=== PATIENT | male | born 1965 | race American Indian/Alaskan Native ===

== ENCOUNTER 2016-06-06 07:52 | Day surgery (SDC) | payer OTHER ==
[2016-03-17 14:37] VITALS: BMI 21.1
[2016-06-06] MEDS ORDERED: Lactated Ringer's 500 ML IV ONE (09:20)
[2016-06-06] MEDS ORDERED: Propofol 10 mg/ml Inj (20 ML) ONE (09:59)
[2016-06-06 10:23] VITALS: TEMP 97
[2016-06-06 10:39] VITALS: BP 114/74; PULSE 80; RESP 18; O2SAT 100
== END 2016-06-06 10:56 | disposition home or self-care (01) ==
LOC: H.ENDO 07:52
PROVIDERS: ATTEND Internal Medicine Gastroenterology
DX: K29.70 Gastritis, unspecified, without bleeding (principal); Z88.0 Allergy status to penicillin

== ENCOUNTER 2017-03-05 08:23 | Emergency (ER) | payer OTHER ==
[2017-03-05 08:23] VITALS: BMI 21.1
[2017-03-05] MEDS ORDERED: Sodium Chloride 0.9% 1,000 ML IV STA ×2 (08:48→10:09)
[2017-03-05] MEDS ORDERED: Insulin Regular 100 units/ml IVP ONE (09:00)
[2017-03-05 09:01] LABS: BASO # 0.1 K/uL (0.0-0.2); BASO % 0.4 % (0.0-2.0); EOS # 0.2 K/uL (0.0-0.7); EOS % 1.5 % (0.0-4.0); HEMATOCRIT 41.1 % (35.0-51.0); LYMPH # 1.2 K/uL (1.0-4.3); LYMPH % 8.4 % (20.0-40.0); MEAN CELL VOLUME 88.9 fl (80.0-94.0); MEAN CORPUSCULAR HGB CONC 32.7 g/dL (33.0-37.0); MEAN PLATELET VOLUME 7.5 fl (7.2-11.7); MONO # 0.5 K/uL (0.0-0.8); MONO % 3.5 % (0.0-10.0); NEUT # 12.2 K/uL (1.8-7.0); NEUT % 86.2 % (50.0-75.0); NRBC % 0.1 % (0.0-0.0); PLATELET COUNT 218 K/uL (130-400); RED CELL DISTRIBUTION WIDTH 12.6 % (11.5-14.5); WHITE BLOOD COUNT 14.1 K/uL (4.8-10.8)
[2017-03-05 09:21] LABS: ALB/GLOB RATIO 1.4 (1.0-2.1); ALKALINE PHOSPHATASE 94 U/L (38-126); ALT/SGPT 29 U/L (21-72); AST/SGOT 17 U/L (17-59); BILIRUBIN,TOTAL 0.4 mg/dl (0.2-1.3); BLOOD UREA NITROGEN 13 mg/dl (9-20); CALCIUM 9.5 mg/dL (8.4-10.2); CARBON DIOXIDE 22 mmol/L (22-30); CHLORIDE 103 mmol/L (98-107); GFR AFRICAN-AMERICAN > 60; GLUCOSE,RANDOM 306 mg/dL (75-110); LIPASE 448 U/L (23-300); POTASSIUM 4.1 MMOL/L (3.6-5.0); SODIUM 136 mmol/l (132-148)
--- NOTE | 2017-03-05 09:32 | ED PDOC ---
HPI: Abdomen Time Seen by Provider: 03/05/17 08:31 Chief Complaint (Nursing): Abdominal Pain Chief Complaint (Provider): Abdominal Pain History Per: Patient History/Exam Limitations: no limitations Onset/Duration Of Symptoms: Hrs Outside of [place] travel?: No Current Symptoms Are (Timing): Still Present Associated Symptoms: Nausea, Vomiting Additional Complaint(s): Alexis Lyon, a 51 year old male, with a past medical history of hypertension, gastroparesis and insulin dependent diabetes presents to the ED complaining of nausea and vomiting (non bloody, non bilious) this morning. Denies significant abdominal pain, fever and diarrhea. Patient reports that his last he hasn't taken his insulin in about a week. PMD: NO FAMILY PROVIDER Past Medical History Reviewed: Historical Data, Nursing Documentation, Vital Signs Vital Signs: Last Vital Signs Temp 98 F 03/05/17 13:02 Pulse 98 H 03/05/17 13:02 Resp 18 03/05/17 13:02 BP 155/98 H 03/05/17 13:02 Pulse Ox 100 03/05/17 13:02 - Medical History PMH: Arthritis, Asthma, Diabetes (IDDM), Gastritis (H Pylori), HTN, Hypercholesterolemia Denies: Atrial Fibrillation, CHF, HIV, Peripheral Edema, Chronic Kidney Disease - Surgical History Surgical History: No Surg Hx, Endoscopy - Family History Family History: States: Unknown Family Hx, Diabetes, Hypertension - Home Medications Home Medications: Ambulatory Orders Medication Instructions Recorded Ciprofloxacin [Cipro] 500 mg PO BID 7 Days #14 tab 03/05/17 Ondansetron [Zofran] 4 mg PO Q6H PRN #10 tab 03/05/17 - Allergies Allergies/Adverse Reactions: Allergies Allergy/AdvReac Type Severity Reaction Status Date / Time Penicillins Allergy RASH Verified 03/05/17 08:33 strawberry Allergy RASH Verified 03/05/17 08:33 Review of Systems ROS Statement: Except As Marked, All Systems Reviewed And Found Negative Constitutional: Negative for: Fever Gastrointestinal: Positive for: Nausea, Vomiting. Negative for: Abdominal Pain Physical Exam - Reviewed Nursing Documentation Reviewed: Yes Vital Signs Reviewed: Yes - Physical Exam Appears: Positive for: Non-toxic, No Acute Distress Head Exam: Positive for: ATRAUMATIC, NORMAL INSPECTION, NORMOCEPHALIC Skin: Positive for: Normal Color, Warm, Dry. Negative for: Rash Eye Exam: Positive for: Normal appearance, EOMI, PERRL. Negative for: Nystagmus ENT: Positive for: Normal ENT Inspection Neck: Positive for: Normal, Painless ROM, Supple Cardiovascular/Chest: Positive for: Regular Rate, Rhythm, Chest Non Tender. Negative for: Tachycardia Respiratory: Positive for: Normal Breath Sounds. Negative for: Wheezing, Respiratory Distress Gastrointestinal/Abdominal: Positive for: Normal Exam, Bowel Sounds, Soft. Negative for: Tenderness, Mass, Guarding, Rebound Back: Positive for: Normal Inspection. Negative for: L CVA Tenderness, R CVA Tenderness Extremity: Positive for: Normal ROM Neurologic/Psych: Positive for: Alert, Oriented - Laboratory Results Result Diagrams: 03/05/17 08:58 03/05/17 08:58 - ECG O2 Sat by Pulse Oximetry: 98 (RA) Pulse Ox Interpretation: Normal Medical Decision Making Medical Decision Makin Initial Impression 51 y/o male presenting with nausea and vomiting Initial Plan: * EKG * CMP * Lipase * CBC * HumuLIN R 6 units IVP * NS 1000 ml IV 1000 mls/hr * Pepcid 20g IV * Zofran 4 mg * IV Urinalysis * Reevaluation labs reviewed, +mod hyperglycemia and leukocytosis Improved in ED, tolerated full meal. Wanted to go home. FP resident Dr Cornejo in ED to provide insulin Rx, states he doesnt have any more Followup clinic note- UA returned after pt left ED, did not want to wait. UTI present, cipro called to [facility] lilia, contacted patient he will pickup in am Scribe Attestation Documented by Trish Patten acting as a scribe for Russ Haskins DO. Provider Attestation All medical record entries made by the Scribe were at my direction and personally dictated by me. I have reviewed the chart and agree that the record accurately reflects my personal performance of the history, physical exam, medical decision making, and the department course for this patient. I have also personally directed, reviewed, and agree with the discharge instructions and disposition. Disposition - Clinical Impression Clinical Impression: Vomiting, Hyperglycemia, UTI (urinary tract infection) - Patient ED Disposition Is Patient to be Admitted: No Counseled Patient/Family Regarding: Studies Performed, Rx Given - Disposition Referrals: [facility] [Outside] Disposition: Routine/Home Disposition Time: 13:00 Condition: STABLE Additional Instructions: Return to ER for any worse or new symptoms. Take insulin as directed. Prescriptions: Ondansetron [Zofran] 4 mg PO Q6H PRN #10 tab PRN Reason: Nausea/Vomiting Instructions: Dehydration (ED), Acute Nausea and Vomiting (ED) Forms: [employer] (Sao Tomean)
[2017-03-05 10:57] LABS: NEUTROPHIL 88 % (42-75); TOTAL CELLS COUNTED 100
[2017-03-05 11:02] LABS: RBC URINE 18 /hpf (0-3); URINE BACTERIA RARE (<OCC); URINE BILIRUBIN NEGATIVE (NEGATIVE); URINE BLOOD SMALL (NEGATIVE); URINE COLOR YELLOW (YELLOW); URINE GLUCOSE (UA) >=500 mg/dL (Normal); URINE KETONE NEGATIVE (NEGATIVE); URINE LEUKOCYTE ESTERASE LARGE Leu/uL (Negative); URINE PROTEIN 30 mg/dL (NEGATIVE); URINE UROBILINOGEN 0.2-1.0 mg/dL (0.2-1.0); WBC URINE 545 /hpf (0-5)
[2017-03-05 13:03] VITALS: BP 155/98; PULSE 98; RESP 18; TEMP 98
[2017-03-05 15:20] VITALS: O2SAT 98
--- NOTE | 2017-03-06 15:58 | CARD ---
APPROVED REPORT EKG Measurement Heart [id number] <Conclusion> Normal sinus rhythm Normal ECG
== END 2017-03-05 13:13 | disposition home or self-care (01) ==
LOC: H.ER 08:23
DX: E11.65 Type 2 diabetes mellitus with hyperglycemia (principal); N39.0 Urinary tract infection, site not specified; R11.10 Vomiting, unspecified; E78.00 Pure hypercholesterolemia, unspecified; I10 Essential (primary) hypertension; J45.909 Unspecified asthma, uncomplicated; Z79.4 Long term (current) use of insulin; Z88.0 Allergy status to penicillin
CPT/HCPCS: 80053; 81003; 82948; 83690; 85025; 93005; 96361; 96374; 96375; 99283; J2405; J7040

== ENCOUNTER 2017-03-26 08:09 | Emergency (ER) | payer OTHER ==
[2017-03-26 08:10] VITALS: BMI 21.1
[2017-03-26 08:25] VITALS: TEMP 97.6
[2017-03-26] MEDS ORDERED: Sodium Chloride 0.9% 1,000 ML IV STA (09:59)
--- NOTE | 2017-03-26 10:07 | ED PDOC ---
HPI: Abdomen Time Seen by Provider: 03/26/17 09:05 Chief Complaint (Nursing): GI Problem Chief Complaint (Provider): Vomiting History Per: Patient History/Exam Limitations: no limitations Onset/Duration Of Symptoms: Days (x1) Current Symptoms Are (Timing): Still Present Additional Complaint(s): 51 y/o male with a past medical history of diabetes presents to the emergency department complaining of recurrent vomiting since this morning. Denies any abdominal pain, diarrhea, or fever/chills. Patient had 1 episode of vomiting here. Denies alcohol or drug use. PMD: Provider TBD Past Medical History Reviewed: Historical Data, Nursing Documentation, Vital Signs Vital Signs: Last Vital Signs Temp 97.6 F 03/26/17 15:01 Pulse 89 03/26/17 15:01 Resp 20 03/26/17 15:01 BP 155/84 H 03/26/17 15:01 Pulse Ox 98 03/26/17 16:04 - Medical History PMH: Arthritis, Asthma, Diabetes (IDDM), Gastritis (H Pylori), HTN, Hypercholesterolemia Denies: Atrial Fibrillation, CHF, HIV, Peripheral Edema, Chronic Kidney Disease - Surgical History Surgical History: Endoscopy - Family History Family History: States: Unknown Family Hx, Diabetes, Hypertension - Social History Alcohol: None Drugs: Denies - Home Medications Home Medications: Ambulatory Orders Medication Instructions Recorded Ciprofloxacin [Cipro] 500 mg PO BID 7 Days #14 tab 03/05/17 Ondansetron [Zofran] 4 mg PO Q6H PRN #10 tab 03/05/17 Ciprofloxacin HCl [Cipro] 500 mg PO BID #20 tab 03/26/17 Metronidazole [Flagyl] 500 mg PO TID #30 tablet 03/26/17 Ondansetron [Zofran] 4 mg PO Q6H PRN #5 tab 03/26/17 - Allergies Allergies/Adverse Reactions: Allergies Allergy/AdvReac Type Severity Reaction Status Date / Time Penicillins Allergy RASH Verified 03/05/17 08:33 strawberry Allergy RASH Verified 03/05/17 08:33 Review of Systems ROS Statement: Except As Marked, All Systems Reviewed And Found Negative Constitutional: Negative for: Fever, Chills Gastrointestinal: Positive for: Nausea, Vomiting. Negative for: Abdominal Pain , Diarrhea Physical Exam - Reviewed Nursing Documentation Reviewed: Yes Vital Signs Reviewed: Yes - Physical Exam Appears: Positive for: Well (thin elderly male), Non-toxic, No Acute Distress Head Exam: Positive for: ATRAUMATIC, NORMAL INSPECTION, NORMOCEPHALIC Skin: Positive for: Normal Color, Warm, Dry Eye Exam: Positive for: EOMI, Normal appearance, PERRL Neck: Positive for: Normal, Painless ROM, Supple Cardiovascular/Chest: Positive for: Regular Rate, Rhythm. Negative for: Murmur Respiratory: Positive for: Normal Breath Sounds. Negative for: Accessory Muscle Use, Respiratory Distress Gastrointestinal/Abdominal: Positive for: Normal Exam, Bowel Sounds, Soft. Negative for: Tenderness Back: Positive for: Normal Inspection. Negative for: L CVA Tenderness, R CVA Tenderness Extremity: Positive for: Normal ROM. Negative for: Pedal Edema, Deformity Neurologic/Psych: Positive for: Alert, Oriented - Laboratory Results Result Diagrams: 03/26/17 10:12 03/26/17 10:12 - ECG O2 Sat by Pulse Oximetry: 98 (RA) Pulse Ox Interpretation: Normal Medical Decision Making Medical Decision Making: Time: 09:59 Initial Plan: --CMP --Lipase --CBC w/ differential --NS IV 1000 ml at 999 mls/hr --Pepcid 20 mg IVP --Zofran 4 mg IV --Reevaluation Time: 11:10 Labs reviewed, significant for: Elevated blood sugar but no anion gap. Lipase elevated. Will order CT scan with PO & IV contrast to r/o pancreatitis. Time: 15:29 CT ABDOMEN/PELVIS FINDINGS: LOWER THORAX: Unremarkable. LIVER: Mild hepatic steatosis again appreciated and is otherwise unremarkable. GALLBLADDER AND BILE DUCTS: Unremarkable. PANCREAS: No focal pancreatic mass or abnormal enhances appreciated although pancreatic duct remains upper limits normal caliber. SPLEEN: Unremarkable. ADRENALS: Unremarkable. No mass. KIDNEYS AND URETERS: The tightly lucency seen the posterior cortex of the upper pole left kidney with both kidneys otherwise unremarkable. VASCULATURE: Unremarkable. No aortic aneurysm. BOWEL: The large and small bowel are largely collapsed as well as the stomach however mural thickening appears affecting both in a pattern suspicious for enterocolitis. No abscess free air or prominent ascites. Gastritis was questioned in the prior CT examination a due to collapse and lack of oral contrast distention of the stomach, as it but difficult to exclude that from the stomach at this time. APPENDIX: Normal appendix. PERITONEUM: Unremarkable. No free fluid. No free air. LYMPH NODES: Unremarkable. No enlarged lymph nodes. BLADDER: Unremarkable. REPRODUCTIVE: Unremarkable. BONES: No acute fracture. OTHER FINDINGS: None. Findings suspicious for enterocolitis IMPRESSION: Findings most compatible with likely enterocolitis with indeterminate etiology. Clinically correlate further. Gastritis not completely excluded. No ascites or free intrarenal gas identified this time. Limited hepatic steatosis again evident. Time: 15:47 Patient is medically stable. pt is aware of CT results and is tolerating po in the ED. Will d/c with Cipro and Flagyl and outpatient follow up with GI. Scribe Attestation: Documented by Amy Antony, acting as a scribe for Gilbert Duke MD Provider Scribe Attestation: All medical record entries made by the Scribe were at my direction and personally dictated by me. I have reviewed the chart and agree that the record accurately reflects my personal performance of the history, physical exam, medical decision making, and the department course for this patient. I have also personally directed, reviewed, and agree with the discharge instructions and disposition. Disposition - Clinical Impression Clinical Impression: Enterocolitis - Patient ED Disposition Is Patient to be Admitted: No Counseled Patient/Family Regarding: Studies Performed, Diagnosis, Need For Followup, Rx Given - Disposition Referrals: [facility] [Outside] [facility] [Outside] Disposition: Routine/Home Disposition Time: 16:45 Condition: IMPROVED Additional Instructions: follow up with your primary doctor in 1-2 days return to the ED with any worsening or concerning symptoms. Prescriptions: Ciprofloxacin HCl [Cipro] 500 mg PO BID #20 tab Metronidazole [Flagyl] 500 mg PO TID #30 tablet Ondansetron [Zofran] 4 mg PO Q6H PRN #5 tab PRN Reason: Nausea/Vomiting Instructions: Colitis (ED) Forms: [employer] (Chinese)
[2017-03-26 10:24] LABS: BASO % 0.3 % (0.0-2.0); EOS # 0.3 K/uL (0.0-0.7); EOS % 2.5 % (0.0-4.0); HEMOGLOBIN 14.1 g/dL (12.0-18.0); LYMPH # 1.8 K/uL (1.0-4.3); MEAN CELL VOLUME 87.8 fl (80.0-94.0); MEAN CORPUSCULAR HEMOGLOBIN 29.4 pg (27.0-31.0); MEAN CORPUSCULAR HGB CONC 33.5 g/dL (33.0-37.0); MEAN PLATELET VOLUME 8.6 fl (7.2-11.7); MONO # 0.5 K/uL (0.0-0.8); MONO % 4.4 % (0.0-10.0); NEUT # 9.6 K/uL (1.8-7.0); NEUT % 77.8 % (50.0-75.0); NRBC % 0.1 % (0.0-0.0); RBC 4.81 Mil/uL (4.40-5.90); RED CELL DISTRIBUTION WIDTH 12.6 % (11.5-14.5); WHITE BLOOD COUNT 12.3 K/uL (4.8-10.8)
[2017-03-26 10:49] LABS: ALB/GLOB RATIO 1.5 (1.0-2.1); ALBUMIN 4.6 g/dL (3.5-5.0); ALT/SGPT 30 U/L (21-72); AST/SGOT 22 U/L (17-59); BLOOD UREA NITROGEN 10 mg/dl (9-20); CALCIUM 9.5 mg/dL (8.4-10.2); GFR AFRICAN-AMERICAN > 60; GFR NON-AFRICAN AMERICAN > 60; LIPASE 464 U/L (23-300)
[2017-03-26] MEDS ORDERED: Iohexol 240 (50 ml) PO ONE (11:10)
[2017-03-26] MEDS ORDERED: Iohexol 300 100 ML IJ ONE (14:27)
[2017-03-26] MEDS ORDERED: Sodium Chloride 0.9% 50 ML IV ONE (14:28)
[2017-03-26 15:02] VITALS: BP 155/84; PULSE 89; RESP 20
--- NOTE | 2017-03-26 15:30 | CT ---
PROCEDURE: CT Abdomen and Pelvis with contrast HISTORY: abdominal pain COMPARISON: Abdomen and pelvis CT with contrast 03/19/2016. TECHNIQUE: Contrast dose: Omnipaque 300, 95 cc. Radiation dose: Total exam DLP = 456.52 mGy-cm. This CT exam was performed using one or more of the following dose reduction techniques: Automated exposure control, adjustment of the mA and/or kV according to patient size, and/or use of iterative reconstruction technique. FINDINGS: LOWER THORAX: Unremarkable. LIVER: Mild hepatic steatosis again appreciated and is otherwise unremarkable. GALLBLADDER AND BILE DUCTS: Unremarkable. PANCREAS: No focal pancreatic mass or abnormal enhances appreciated although pancreatic duct remains upper limits normal caliber. SPLEEN: Unremarkable. ADRENALS: Unremarkable. No mass. KIDNEYS AND URETERS: The tightly lucency seen the posterior cortex of the upper pole left kidney with both kidneys otherwise unremarkable. VASCULATURE: Unremarkable. No aortic aneurysm. BOWEL: The large and small bowel are largely collapsed as well as the stomach however mural thickening appears affecting both in a pattern suspicious for enterocolitis. No abscess free air or prominent ascites. Gastritis was questioned in the prior CT examination a due to collapse and lack of oral contrast distention of the stomach, as it but difficult to exclude that from the stomach at this time. APPENDIX: Normal appendix. PERITONEUM: Unremarkable. No free fluid. No free air. LYMPH NODES: Unremarkable. No enlarged lymph nodes. BLADDER: Unremarkable. REPRODUCTIVE: Unremarkable. BONES: No acute fracture. OTHER FINDINGS: None. Findings suspicious for enterocolitis IMPRESSION: Findings most compatible with likely enterocolitis with indeterminate etiology. Clinically correlate further. Gastritis not completely excluded. No ascites or free intrarenal gas identified this time. Limited hepatic steatosis again evident.
[2017-03-26 16:04] VITALS: O2SAT 98
== END 2017-03-26 16:39 | disposition home or self-care (01) ==
LOC: H.ER 08:09
DX: K76.0 Fatty (change of) liver, not elsewhere classified (principal); E11.9 Type 2 diabetes mellitus without complications; Z88.0 Allergy status to penicillin; E78.00 Pure hypercholesterolemia, unspecified; I10 Essential (primary) hypertension; J45.909 Unspecified asthma, uncomplicated; Z79.4 Long term (current) use of insulin
CPT/HCPCS: 74177; 80053; 83690; 85025; 96374; 96375; 99283; J2405; J2550; J7040; Q9967

== ENCOUNTER 2017-05-27 17:42 | Inpatient (IN) | payer MEDICAID, OTHER ==
[2017-05-27 17:43] VITALS: BMI 21.1
[2017-05-27] MEDS ORDERED: Sodium Chloride 0.9% 1,000 ML IV STA ×2 (18:41→21:57)
--- NOTE | 2017-05-27 18:44 | ED PDOC ---
HPI: Abdomen Time Seen by Provider: 05/27/17 18:29 Chief Complaint (Nursing): GI Problem Chief Complaint (Provider): Vomiting History Per: Patient History/Exam Limitations: no limitations Onset/Duration Of Symptoms: Hrs (this morning. ) Current Symptoms Are (Timing): Still Present Associated Symptoms: Vomiting (non bloody), Diarrhea. denies: Fever, Chills, Chest Pain, Urinary Symptoms, Other (SOB) Additional Complaint(s): Alexis Lyon is a 51 year old male, with a past medical history of diabetes and gastritis, who presents to the emergency department complaining of non bloody vomiting and diarrhea onset since this morning. He denies any fever, chills, chest pain, shortness of breath, abdominal pain or genitourinary symptoms. No further medical complaints. PMD: None provided. Of note: Patient was seen here on 03/26/2017 and given Cipro and Flagyl for home. Past Medical History Reviewed: Historical Data, Nursing Documentation, Vital Signs Vital Signs: Last Vital Signs Temp 98.3 F 05/31/17 16:00 Pulse 83 05/31/17 16:00 Resp 20 05/31/17 16:00 BP 172/86 H 05/31/17 16:00 Pulse Ox 98 05/31/17 16:00 - Medical History PMH: Arthritis, Asthma, Diabetes (IDDM), Gastritis (H Pylori), HTN, Hypercholesterolemia Denies: Atrial Fibrillation, CHF, HIV, Peripheral Edema, Chronic Kidney Disease - Surgical History Surgical History: Endoscopy - Family History Family History: States: Unknown Family Hx, Diabetes, Hypertension - Home Medications Home Medications: Ambulatory Orders Medication Instructions Recorded Aspirin [Ecotrin] 81 mg PO DAILY tabec 05/31/17 Atorvastatin [Lipitor] 10 mg PO DAILY tab 05/31/17 Insulin Detemir [Levemir] 17 units SC HS vial 05/31/17 Lisinopril [Zestril] 40 mg PO DAILY tab 05/31/17 MetFORMIN [glucoPHAGE] 1,000 mg PO BIDWM tab 05/31/17 Metoclopramide [Reglan] 10 mg PO ACTID #21 tab 05/31/17 Ondansetron [Zofran Inj] 4 mg PO Q6 #28 tab 05/31/17 - Allergies Allergies/Adverse Reactions: Allergies Allergy/AdvReac Type Severity Reaction Status Date / Time Penicillins Allergy RASH Verified 03/05/17 08:33 strawberry Allergy RASH Verified 03/05/17 08:33 Review of Systems ROS Statement: Except As Marked, All Systems Reviewed And Found Negative Constitutional: Negative for: Fever, Chills Cardiovascular: Negative for: Chest Pain Respiratory: Negative for: Shortness of Breath Gastrointestinal: Positive for: Vomiting (non bloody), Diarrhea. Negative for: Abdominal Pain Genitourinary Male: Negative for: Dysuria, Frequency, Incontinence Physical Exam - Reviewed Nursing Documentation Reviewed: Yes Vital Signs Reviewed: Yes - Physical Exam Appears: Positive for: Non-toxic Head Exam: Positive for: ATRAUMATIC, NORMAL INSPECTION, NORMOCEPHALIC Skin: Positive for: Normal Color, Warm, Dry Eye Exam: Positive for: Normal appearance, EOMI, PERRL Neck: Positive for: Painless ROM, Supple Cardiovascular/Chest: Positive for: Regular Rate, Rhythm. Negative for: Murmur Respiratory: Positive for: Normal Breath Sounds. Negative for: Respiratory Distress Gastrointestinal/Abdominal: Positive for: Tenderness (mild epigastric and RUQ ) , Other (Actively vomiting). Negative for: Guarding, Rebound Extremity: Positive for: Normal ROM. Negative for: Tenderness, Deformity, Swelling Neurologic/Psych: Positive for: Alert, Oriented - Laboratory Results Result Diagrams: 05/29/17 05:30 05/31/17 06:40 - ECG O2 Sat by Pulse Oximetry: 98 (RA) Pulse Ox Interpretation: Normal Medical Decision Making Medical Decision Making: Initial Impression: Gastritis, cholecystitis, cholelithiasis. Initial Plan: --EKG --CMP --Lipase --Urine dipstick --CBC w/ differential --PTT --PT --Morphine 2 mg IV --Sodium Chloride 1,000 ml IV 1,000 mls/hr --Zofran Inj 4 mg IV --Urinalysis --Abdomen Limited (GB includd) [US] --Reevaluation Scribe Attestation: Documented by Rad Ford, acting as a scribe for Michelle Samuels MD Provider Scribe Attestation: All medical record entries made by the Scribe were at my direction and personally dictated by me. I have reviewed the chart and agree that the record accurately reflects my personal performance of the history, physical exam, medical decision making, and the department course for this patient. I have also personally directed, reviewed, and agree with the discharge instructions and disposition. Disposition - Clinical Impression Clinical Impression: Intractable vomiting - Disposition Disposition: Transfer of Care Disposition Time: 19:00 Condition: STABLE Patient Signed Over To: Claudy Conway
--- NOTE | 2017-05-27 19:07 | ED PDOC ---
- Laboratory Results Result Diagrams: 05/27/17 19:23 05/27/17 19:23 - ECG O2 Sat by Pulse Oximetry: 98 (RA) Medical Decision Making Medical Decision Makin:00 --Patient was endorsed to me by Dr. Samuels, pending ultrasound and labs. 20:17 Abdomen Ultrasound FINDINGS: Gallbladder: Appears mildly contracted. Demonstrates a fold, a normal variant. Otherwise unremarkable in appearance. No evidence of gallstones, abnormal gallbladder wall thickening or pericholecystic fluid. Reportedly negative sonographic Welsh's sign. Common bile duct: Does not appear abnormally dilated, measuring less than 6 mm in diameter. Liver: Within normal limits in appearance. Measures 12.5 cm in length. Normal flow seen in the main portal vein on color and Doppler imaging. Pancreas: Incompletely seen due to gas. Visualized portions of the pancreatic head and neck appear grossly normal. Right kidney: Within normal limits in appearance. Measures 11.4 cm in length. No evidence of hydronephrosis. No renal calculi are visible sonographically. IMPRESSION: No significant abnormality seen. No cause for right upper quadrant pain identified. 10PM Patient continues to have vomiting, but states that his pain is gone. Stool exam shows normal brown stool, guiac negative, however some blood tinged vomit at this time, likely 2/2 to norman-spears tear from excessive vomiting. Case discussed with FP resident who agrees to admission in OBS for intractable vomiting. Disposition - Clinical Impression Clinical Impression: Intractable vomiting - POA Present On Arrival: None - Disposition Disposition: Hospitalized as Observation Patient Disposition Time: 22:00 Condition: FAIR
[2017-05-27] MEDS ORDERED: Morphine 4 MG/ML VIAL ONE (19:31)
[2017-05-27 19:40] LABS: BASO % 0.2 % (0.0-2.0); HEMOGLOBIN 14.6 g/dL (12.0-18.0); LYMPH # 0.9 K/uL (1.0-4.3); LYMPH % 5.4 % (20.0-40.0); MEAN CORPUSCULAR HEMOGLOBIN 29.5 pg (27.0-31.0); MEAN CORPUSCULAR HGB CONC 33.5 g/dL (33.0-37.0); MEAN PLATELET VOLUME 7.5 fl (7.2-11.7); MONO # 0.3 K/uL (0.0-0.8); MONO % 2.1 % (0.0-10.0); NEUT # 14.7 K/uL (1.8-7.0); NEUT % 92.3 % (50.0-75.0); NRBC % 0.1 % (0.0-0.0); PLATELET COUNT 267 K/uL (130-400); RBC 4.95 Mil/uL (4.40-5.90); RED CELL DISTRIBUTION WIDTH 14.2 % (11.5-14.5); WHITE BLOOD COUNT 15.9 K/uL (4.8-10.8)
[2017-05-27 19:45] LABS: ALB/GLOB RATIO 1.4 (1.0-2.1); ALBUMIN 4.9 g/dL (3.5-5.0); ALT/SGPT 41 U/L (21-72); AST/SGOT 30 U/L (17-59); BLOOD UREA NITROGEN 12 mg/dl (9-20); CALCIUM 10.4 mg/dL (8.4-10.2); GFR AFRICAN-AMERICAN > 60; GFR NON-AFRICAN AMERICAN > 60; LIPASE 63 U/L (23-300)
[2017-05-27 19:51] LABS: PARTIAL THROMBOPLASTIN TIME 28.6 Seconds (25.6-37.1); PROTHROMBIN TIME 10.6 Seconds (9.8-13.1)
--- NOTE | 2017-05-27 20:17 | US ---
EXAM: US Abdomen Limited, Right Upper Quadrant EXAM DATE/TIME: 05/27/2017 6:41 PM CLINICAL HISTORY: 51 years old, male; Pain; Abdominal pain; Epigastric; Additional info: Epigastric/ruq pain, vomiting TECHNIQUE: Real-time ultrasound of the right upper quadrant with image documentation. COMPARISON: Prior abdominal ultrasound dated 09/08/2015. FINDINGS: Gallbladder: Appears mildly contracted. Demonstrates a fold, a normal variant. Otherwise unremarkable in appearance. No evidence of gallstones, abnormal gallbladder wall thickening or pericholecystic fluid. Reportedly negative sonographic Welsh's sign. Common bile duct: Does not appear abnormally dilated, measuring less than 6 mm in diameter. Liver: Within normal limits in appearance. Measures 12.5 cm in length. Normal flow seen in the main portal vein on color and Doppler imaging. Pancreas: Incompletely seen due to gas. Visualized portions of the pancreatic head and neck appear grossly normal. Right kidney: Within normal limits in appearance. Measures 11.4 cm in length. No evidence of hydronephrosis. No renal calculi are visible sonographically. IMPRESSION: No significant abnormality seen. No cause for right upper quadrant pain identified. See above for remaining findings.
[2017-05-27 21:05] LABS: BANDS 5 % (0-2); LYMPHOCYTE 5 % (20-50); MONOCYTE 3 % (0-10); NEUTROPHIL 87 % (42-75); PLATELET ESTIMATE NORMAL (NORMAL); TOTAL CELLS COUNTED 100
[2017-05-27 21:06] LABS: HYPOCHROMIC SLIGHT
[2017-05-27] MEDS ORDERED: Glucagon Recombinant 1 mg Inj IM PRN (23:07)
[2017-05-27] MEDS ORDERED: Dextrose 50% SYRINGE Inj (50 ml) IV PRN (23:07)
--- NOTE | 2017-05-27 23:09 | CP.PCM.HP ---
History of Present Illness - History of Present Illness History of Present Illness: "andrea been throwing up all morning" 51 y/o male, with PMHx remarkable for IDDM2, HTN, and gastroparesis presented to [facility] ED today for evaluation of vomiting today. Pt reports it started this morning. He denies any sick contacts or dietary irregularities. He has had >10 episodes of NBNB emesis today. He reports he has tried to hold down fluids but has failed. He has now been dry heaving severely with some scant red coloring to his stomach contents. He reports being admitted last year in March for similar symptoms. Denies fever/chills, headaches, changes in vision, CP/SOB/ palpitations, abdominal pain, D/C, urinary symptoms, new onset numbness/ tingling. PMD: Marsha, last visit 04/21/2017 PMHx: IDDM2, HTN, Gastroparesis, peripheral neuropathy Meds: Aspirin 81mg QD, Humalog 4 units SC ACTID, Lantus 14 units SC HS, atorvastatin 10mg QD, Vascepa 1gm QD, Lisinopril 40mg QD, Metformin 1000mg BID, Gabapentin 600mg QD ALL: pencillin (swelling) Psurghx: none FamilyHx: HTN, seizures SocialHx: denies ETOH/Tobacco/drug abuse Next of Kin: Fannie Cevallos [phone] Code Status: full code Present on Admission - Present on Admission Any Indicators Present on Admission: No Review of Systems - Constitutional Constitutional: absent: As Per HPI, Anorexia, Chills, Daytime Sleepiness, Excessive Sweating, Fatigue, Fever, Frequent Falls, Headache, Increased Appetite , Lethargy, Malaise, Night Sweats, Snoring, Sleep Apnea, Weight Gain, Weight Loss, Weakness, Other - EENT Eyes: absent: As Per HPI, Blind Spots, Blurred Vision, Change in Vision, Decreased Night Vision, Diplopia, Discharge, Dry Eye, Exophthalmos, Floaters, Irritation, Itchy Eyes, Loss of Peripheral Vision, Pain, Photophobia, Requires Corrective Lenses, Sees Flashes, Spots in Vision, Tunnel Vision, Other Visual Disturbances, Loss of Vision, Other Ears: absent: As Per HPI, Decreased Hearing, Ear Discharge, Ear Pain, Tinnitus, Abnormal Hearing, Disequilibrium, Dizziness, Other - Cardiovascular Cardiovascular: absent: As Per HPI, Acrocyanosis, Chest Pain, Chest Pain at Rest , Chest Pain with Activity, Claudication, Diaphoresis, Dyspnea, Dyspnea on Exertion, Edema, Irregular Heart Rhythm, Pain Radiating to Arm/Neck/Jaw, Leg Edema, Leg Ulcers, Lightheadedness, Orthopnea, Palpitations, Paroxysmal Nocturnal Dyspnea, Pedal Edema, Radiating Pain, Rapid Heart Rate, Slow Heart Rate, Syncope, Other - Respiratory Respiratory: absent: As Per HPI, Cough, Dyspnea, Hemoptysis, Dyspnea on Exertion , Wheezing, Snoring, Stridor, Pain on Inspiration, Chest Congestion, Excessive Mucous Production, Change in Mucous Color, Pain with Coughing, Other - Gastrointestinal Gastrointestinal: Bloating, Nausea, Vomiting. absent: As Per HPI, Abdominal Pain, Belching, Change in Bowel Habits, Change in Stool Character, Coffee Ground Emesis, Constipation, Cramping, Diarrhea, Dyspepsia, Dysphagia, Early Satiety, Excessive Flatus, Fecal Incontinence, Heartburn, Hematemesis, Hematochezia, Loose Stools, Melena, Odynophagia, Temesmus, Other - Genitourinary Genitourinary: absent: As Per HPI, Change in Urinary Stream, Difficulty Urinating, Dysuria, Flank Pain, Hematuria, Pyuria, Nocturia, Urinary Incontinence, Urinary Frequency, Urinary Hesitance, Urinary Urgency, Voiding Freq/Small Amts, Freq UTI, Hx Renal/Bladder Calculi, Hx /Renal Surgery, Bladder Distension, Other - Musculoskeletal Musculoskeletal: absent: As Per HPI, Abnormal Gait, Arthralgias, Atrophy, Back Pain, Deformity, Joint Swelling, Limited Range of Motion, Loss of Height, Muscle Cramps, Muscle Weakness, Myalgias, Neck Pain, Numbness, Radiating Pain into Limb, Stiffness, Tingling, Other - Integumentary Integumentary: absent: As Per HPI, Acne, Alopecia, Bleeding Lesions, Change in Hair, Change in Nails, Change in Pigmentation, Changing Lesions, Dry Skin, Erythema, Furuncle, Hirsutism, Lesions, New Lesions, Non-Healing Lesions, Photosensitivity, Pruritus, Rash, Skin Pain, Skin Ulcer, Sores, Striae, Swelling , Unusual Bruising, Wounds, Jaundice, Other - Neurological Neurological: absent: As Per HPI, Abnormal Gait, Abnormal Hearing, Abnormal Movements, Abnormal Speech, Behavioral Changes, Burning Sensations, Confusion, Convulsions, Disequilibrium, Dizziness, Numbness, Focal Weakness, Frequent Falls , Headaches, Lack of Coordination, Loss of Vision, Memory Loss, Paresthesias, Radicular Pain, Restless Legs, Sensory Deficit, Syncope, Tingling, Tremor, Vertigo, Weakness, Other Visual Disturbances, Other Past Patient History - Infectious Disease Hx of Infectious Diseases: None - Past Medical History & Family History Past Medical History?: Yes - Past Social History Smoking Status: Never Smoked Alcohol: None Drugs: Denies Home Situation {Lives}: With Family - CARDIAC Hx Atrial Fibrillation: No Hx Congestive Heart Failure: No Hx Hypercholesterolemia: Yes Hx Hypertension: Yes Hx Peripheral Edema: No - PULMONARY Hx Asthma: Yes - NEUROLOGICAL Hx Neurological Disorder: No - HEENT Hx HEENT Problems: No - RENAL Hx Chronic Kidney Disease: No - ENDOCRINE/METABOLIC Hx Endocrine Disorders: Yes Hx Diabetes Mellitus Type 2: Yes - HEMATOLOGICAL/ONCOLOGICAL Hx Human Immunodeficiency Virus (HIV): No - INTEGUMENTARY Hx Dermatological Problems: No - MUSCULOSKELETAL/RHEUMATOLOGICAL Hx Arthritis: Yes - GASTROINTESTINAL Hx Gastritis: Yes (H Pylori) - GENITOURINARY/GYNECOLOGICAL Hx Genitourinary Disorders: No - PSYCHIATRIC Hx Psychophysiologic Disorder: No Hx Emotional Abuse: No Hx Physical Abuse: No Hx Substance Use: No - SURGICAL HISTORY Hx Surgeries: No - ANESTHESIA Hx Anesthesia: No Meds Allergies/Adverse Reactions: Allergies Allergy/AdvReac Type Severity Reaction Status Date / Time Penicillins Allergy RASH Verified 03/05/17 08:33 strawberry Allergy RASH Verified 03/05/17 08:33 Physical Exam - Constitutional Appears: Non-toxic, No Acute Distress - Head Exam Head Exam: ATRAUMATIC, NORMAL INSPECTION, NORMOCEPHALIC - Eye Exam Eye Exam: EOMI, Normal appearance, PERRL Pupil Exam: PERRL - ENT Exam ENT Exam: Mucous Membranes Dry, Normal Exam. absent: Mucous Membranes Moist - Neck Exam Neck exam: Positive for: Full Rom. Negative for: Lymphadenopathy, Tenderness - Respiratory Exam Respiratory Exam: Clear to Auscultation Bilateral, NORMAL BREATHING PATTERN. absent: Accessory Muscle Use, Rales, Rhonchi, Wheezes, Respiratory Distress - Cardiovascular Exam Cardiovascular Exam: REGULAR RHYTHM, RRR, +S1, +S2. absent: Tachycardia, Gallop , JVD, Rubs, Systolic Murmur - GI/Abdominal Exam GI & Abdominal Exam: Guarding (voluntary), Normal Bowel Sounds, Soft. absent: Distended, Firm, Hernia, Hyperactive Bowel Sounds, Mass, Organomegaly, Rebound, Rigid, Tenderness - Extremities Exam Extremities exam: Positive for: normal capillary refill, normal inspection, pedal pulses present. Negative for: calf tenderness, pedal edema - Back Exam Back exam: NORMAL INSPECTION. absent: CVA tenderness (L), CVA tenderness (R) - Neurological Exam Neurological exam: Alert, CN II-XII Intact, Normal Gait, Oriented x3, Reflexes Normal - Psychiatric Exam Psychiatric exam: Normal Affect, Normal Mood - Skin Skin Exam: Dry, Intact, Normal Color, Warm Results - Vital Signs Recent Vital Signs: Last Vital Signs Temp 96.7 F L 05/27/17 17:59 Pulse 70 05/27/17 17:59 Resp 16 05/27/17 17:59 BP 172/87 H 05/27/17 17:59 Pulse Ox 98 05/27/17 22:38 - Labs Result Diagrams: 05/27/17 19:23 05/27/17 19:23 Labs: Laboratory Results - last 24 hr 05/27/17 05/27/17 05/27/17 19:23 19:23 19:23 WBC 15.9 H RBC 4.95 Hgb 14.6 Hct 43.5 MCV 88.0 MCH 29.5 MCHC 33.5 RDW 14.2 Plt Count 267 MPV 7.5 Neut % (Auto) 92.3 H Lymph % (Auto) 5.4 L Isabela % (Auto) 2.1 Eos % (Auto) 0.0 Baso % (Auto) 0.2 Neut # (Auto) 14.7 H Lymph # (Auto) 0.9 L Isabela # (Auto) 0.3 Eos # (Auto) 0.0 Baso # (Auto) 0.0 Neutrophils % (Manual) 87 H Band Neutrophils % 5 H Lymphocytes % (Manual) 5 L Monocytes % (Manual) 3 Platelet Estimate Normal Hypochromasia (manual) Slight PT 10.6 INR 1.0 APTT 28.6 Sodium 146 Potassium 4.1 Chloride 96 L Carbon Dioxide 27 Anion Gap 27 H BUN 12 Creatinine 0.6 L Est GFR ( Amer) > 60 Est GFR (Non-Af Amer) > 60 POC Glucose (mg/dL) Random Glucose 331 H Calcium 10.4 H Total Bilirubin 0.6 AST 30 ALT 41 Alkaline Phosphatase 84 Total Protein 8.4 H Albumin 4.9 Globulin 3.4 Albumin/Globulin Ratio 1.4 Lipase 63 Stool Occult Blood 05/27/17 05/27/17 19:36 21:57 WBC RBC Hgb Hct MCV MCH MCHC RDW Plt Count MPV Neut % (Auto) Lymph % (Auto) Isabela % (Auto) Eos % (Auto) Baso % (Auto) Neut # (Auto) Lymph # (Auto) Isabela # (Auto) Eos # (Auto) Baso # (Auto) Neutrophils % (Manual) Band Neutrophils % Lymphocytes % (Manual) Monocytes % (Manual) Platelet Estimate Hypochromasia (manual) PT INR APTT Sodium Potassium Chloride Carbon Dioxide Anion Gap BUN Creatinine Est GFR ( Amer) Est GFR (Non-Af Amer) POC Glucose (mg/dL) 285 H Random Glucose Calcium Total Bilirubin AST ALT Alkaline Phosphatase Total Protein Albumin Globulin Albumin/Globulin Ratio Lipase Stool Occult Blood Negative Assessment & Plan - Assessment and Plan (Free Text) Assessment: 51 y/o male with PMHx of IDDM2, gastroparesis, HTN, admitted for intractable vomiting. Plan: 1) Intractable Vomiting: -gastroenteritis? gastoparesis? -denies pain -lipase wnl -CBC leukocytosis 15.9, 5 bands -CMP: hypokalemia -UA: elevated specific gravity -given 2 L NS bolus -Zofran 8mg IVP -Metoclopramide 10mg -Protonix 80mg IVP for suspected norman spears tear -Occult blood: negative -NPO -Zofran 4mg Q6H -NS+20meq KCL @ 100mls/hr -advance diet as tolerated -AM labs: pending 2) IDDM2 -lispro sliding scale -c/w home meds once tolerated PO 3) Hypertension -elevated, asymptomatic -hx of uncontrolled HTN as per eCW notes -c/w home meds once tolerating PO -monitor vitals 4) Prophylaxis: -Lovenox 40mg SC QD 5) Diet: -NPO 6) Code Status: -full code
[2017-05-27] MEDS ORDERED: Potassium Chl 20 mEq in NS 1,000 ML IV SCH (23:15)
[2017-05-27 23:32] LABS: SQUAMOUS EPITHIAL < 1 /hpf (0-5); URINE BILIRUBIN NEGATIVE (NEGATIVE); URINE BLOOD NEGATIVE (NEGATIVE); URINE CLARITY CLEAR (Clear); URINE COLOR YELLOW (YELLOW); URINE GLUCOSE (UA) >=500 mg/dL (Normal); URINE LEUKOCYTE ESTERASE NEG Leu/uL (Negative); URINE PROTEIN 30 mg/dL (NEGATIVE); URINE UROBILINOGEN 0.2-1.0 mg/dL (0.2-1.0)
[2017-05-28] MEDS: Insulin Lispro (humaLOG) 100 Units/ml Inj SC SCH ×5 (00:10→16:40)
[2017-05-28 06:51] LABS: ALB/GLOB RATIO 1.4 (1.0-2.1); ALBUMIN 4.3 g/dL (3.5-5.0); ALT/SGPT 43 U/L (21-72); AST/SGOT 18 U/L (17-59); BLOOD UREA NITROGEN 12 mg/dl (9-20); CALCIUM 9.5 mg/dL (8.4-10.2); GFR AFRICAN-AMERICAN > 60; GFR NON-AFRICAN AMERICAN > 60
[2017-05-28 07:30] LABS: HEMOGLOBIN 13.1 g/dL (12.0-18.0); MEAN CELL VOLUME 87.7 fl (80.0-94.0); MEAN CORPUSCULAR HEMOGLOBIN 30.1 pg (27.0-31.0); MEAN CORPUSCULAR HGB CONC 34.3 g/dL (33.0-37.0); RBC 4.35 Mil/uL (4.40-5.90); RED CELL DISTRIBUTION WIDTH 14.3 % (11.5-14.5)
--- NOTE | 2017-05-28 08:09 | CARD ---
APPROVED REPORT EKG Measurement Heart [id number] FL [id number] [id number] <Conclusion> Sinus rhythm with premature supraventricular complexes Otherwise normal ECG
[2017-05-28] MEDS: Enoxaparin 40 mg Syringe SC SCH (08:15)
--- NOTE | 2017-05-28 09:15 | CP.PCM.PN ---
Subjective - Date & Time of Evaluation Date of Evaluation: 05/28/17 Time of Evaluation: 09:11 - Subjective Subjective: 51 y/o male, with PMHx IDDM2, peripheral neuropathy, HTN, and gastroparesis seen at bedside today after being admitted through ED last night with intractable vomiting x 1 day. Patient states the he no longer feels nauseous and states that his last episode of emesis was last night. He denies any further events at this time and states that he is hungry and thirsty. He denies any stomach pain or any evidence of blood in the vomit that he produced last night. Denies any F/C/CP/SOB/D/posterior calf pain when squeezed. Objective - Vital Signs/Intake and Output Vital Signs (last 24 hours): Temp Pulse Resp BP Pulse Ox 98.7 F 87 20 172/78 H 98 05/28/17 07:54 05/28/17 08:14 05/28/17 07:54 05/28/17 08:14 05/28/17 07:54 - Medications Medications: Current Medications Aspirin (Ecotrin) 81 mg PO DAILY [facility] Atorvastatin Calcium (Lipitor) 10 mg PO DAILY [facility] Last Admin: 05/28/17 08:15 Dose: 10 mg Dextrose (Dextrose 50% Inj) 0 ml IV STAT PRN; Protocol PRN Reason: Hypoglycemia Protocol Dextrose (Glutose 15) 0 gm PO ONCE PRN; Protocol PRN Reason: Hypoglycemia Protocol Enoxaparin Sodium (Lovenox) 40 mg SC DAILY [facility] PRN Reason: Protocol Last Admin: 05/28/17 08:15 Dose: 40 mg Glucagon (Glucagen Diagnostic Kit) 0 mg IM STAT PRN; Protocol PRN Reason: Hypoglycemia Protocol Potassium Chloride/Dextrose/Sod Cl (Potassium Chl 20 Meq In D5-1/2ns) 1,000 mls @ 110 mls/hr IV .Q9H6M [facility] Stop: 05/29/17 07:51 Insulin Detemir (Levemir) 17 units SC HS [facility] Insulin Human Lispro (Humalog) 0 units SC ACHS [facility] PRN Reason: Protocol Last Admin: 05/28/17 06:41 Dose: 3 u Insulin Human Lispro (Humalog) 4 units SC ACTID [facility] Last Admin: 05/28/17 06:41 Dose: 4 u Lisinopril (Zestril) 40 mg PO DAILY [facility] Last Admin: 05/28/17 08:14 Dose: 40 mg Metformin HCl (Glucophage) 1,000 mg PO BIDWM [facility] Last Admin: 05/28/17 08:15 Dose: 1,000 mg Metoclopramide HCl (Reglan) 10 mg IVP ACTID [facility] Ondansetron HCl (Zofran Inj) 4 mg IVP Q6 PRN PRN Reason: Nausea/Vomiting Last Admin: 05/28/17 01:07 Dose: 4 mg - Labs Labs: 05/28/17 05:30 05/28/17 05:30 PT 10.6 Seconds (9.8-13.1) 05/27/17 19:23 INR 1.0 (0.9-1.2) 05/27/17 19:23 APTT 28.6 Seconds (25.6-37.1) 05/27/17 19:23 - Constitutional Appears: Well, Non-toxic, No Acute Distress - Head Exam Head Exam: ATRAUMATIC, NORMOCEPHALIC - Eye Exam Eye Exam: EOMI, PERRL Pupil Exam: PERRL - ENT Exam ENT Exam: Mucous Membranes Moist - Neck Exam Neck Exam: Normal Inspection - Respiratory Exam Respiratory Exam: NORMAL BREATHING PATTERN - GI/Abdominal Exam GI & Abdominal Exam: absent: Distended, Firm, Guarding, Rigid, Tenderness - Rectal Exam Rectal Exam: Deferred - Extremities Exam Extremities Exam: Normal Inspection - Neurological Exam Neurological Exam: Alert, Awake, Oriented x3 - Psychiatric Exam Psychiatric exam: Normal Affect, Normal Mood - Skin Skin Exam: Intact, Normal Color, Warm Assessment and Plan - Assessment and Plan (Free Text) Assessment: 51 y/o male with PMHx of IDDM2, peripheral neuropathy, gastroparesis, HTN, admitted for intractable vomiting Plan: 1) Gastroenteritis vs. Gastroparesis with intractable vomiting: - WBC 12.0 from 15.9 - Abdominal US: No significant abnormality seen. No cause for right upper quadrant pain identified - UA: elevated specific gravity - Reglan 10 mg IV ACTID - Zofran 4 mg IV q6 prn - Fluid maintenance D5W 1/2 NS w/ 20 mEq K+ @ 110 mls/hr - Stool occult blood negative - F/u BMP, CBC in AM - Patient could not tolerate clear liquid diet - NPO diet except meds; advance as tolerated to clear liquids at lunch ( moderate carb controlled) - Monitor vital signs q8 2) IDDM2 - POC glucose 201 from 285 on admission - Levemir 17 units SC HS - Lispro 4 units SC ACTID - Metformin 1000 mg PO BIDWM 3) Hypertension - Hx of uncontrolled HTN as per eCW notes - BP 172/78 - asymptomatic - Lisinopril 40 mg PO daily - monitor vitals q8 4) Prophylaxis: - Aspirin 81 mg PO daily -Lovenox 40mg SC QD 5) Code Status: -full code
[2017-05-28] MEDS: Potassium Ch 20mEq in D5-1/2NS 1,000 ML IV SCH ×3 (09:42→21:44)
[2017-05-28] MEDS: Insulin Detemir 100 Units/ml Inj SC SCH (21:45)
[2017-05-29] MEDS: Potassium Ch 20mEq in D5-1/2NS 1,000 ML IV SCH (02:23)
[2017-05-29] MEDS: Insulin Lispro (humaLOG) 100 Units/ml Inj SC SCH ×4 (06:36→22:00)
[2017-05-29 06:48] LABS: BLOOD UREA NITROGEN 10 mg/dl (9-20); CALCIUM 9.1 mg/dL (8.4-10.2); GFR AFRICAN-AMERICAN > 60; GFR NON-AFRICAN AMERICAN > 60
[2017-05-29 07:42] LABS: HEMOGLOBIN 13.3 g/dL (12.0-18.0); MEAN CORPUSCULAR HEMOGLOBIN 30.1 pg (27.0-31.0); MEAN CORPUSCULAR HGB CONC 33.8 g/dL (33.0-37.0); RBC 4.41 Mil/uL (4.40-5.90); RED CELL DISTRIBUTION WIDTH 14.2 % (11.5-14.5); WHITE BLOOD COUNT 10.7 K/uL (4.8-10.8)
[2017-05-29] MEDS: Enoxaparin 40 mg Syringe SC SCH (08:13)
--- NOTE | 2017-05-29 08:46 | CP.PCM.PN ---
Subjective - Date & Time of Evaluation Date of Evaluation: 05/29/17 Time of Evaluation: 08:43 - Subjective Subjective: 51 y/o male, with PMHx IDDM2, peripheral neuropathy, HTN, and gastroparesis seen at bedside today after intractable vomiting x 1 day on 05/27/17. Patient has been NPO since yesterday and has been on a regimen of Reglan and Zofran. Patient states the he has been throwing up dark vomit since 5 am. Per nursing, it is believed that patient is faking his nausea and vomiting in order to try and get his own room. He denies any further events at this time. He denies any stomach pain or any evidence of blood in the vomit that he produced last night. Denies any F/C/CP/SOB/D/posterior calf pain when squeezed. Objective - Vital Signs/Intake and Output Vital Signs (last 24 hours): Temp Pulse Resp BP Pulse Ox 98.2 F 65 20 180/90 H 99 05/29/17 08:09 05/29/17 08:09 05/29/17 08:09 05/29/17 08:12 05/29/17 08:09 - Medications Medications: Current Medications Aspirin (Ecotrin) 81 mg PO DAILY [facility] Last Admin: 05/29/17 08:12 Dose: 81 mg Atorvastatin Calcium (Lipitor) 10 mg PO DAILY [facility] Last Admin: 05/29/17 08:13 Dose: 10 mg Dextrose (Dextrose 50% Inj) 0 ml IV STAT PRN; Protocol PRN Reason: Hypoglycemia Protocol Dextrose (Glutose 15) 0 gm PO ONCE PRN; Protocol PRN Reason: Hypoglycemia Protocol Enoxaparin Sodium (Lovenox) 40 mg SC DAILY [facility] PRN Reason: Protocol Last Admin: 05/29/17 08:13 Dose: 40 mg Glucagon (Glucagen Diagnostic Kit) 0 mg IM STAT PRN; Protocol PRN Reason: Hypoglycemia Protocol Insulin Detemir (Levemir) 17 units SC HS [facility] Last Admin: 05/28/17 21:45 Dose: 17 u Insulin Human Lispro (Humalog) 0 units SC ACHS [facility] PRN Reason: Protocol Last Admin: 05/29/17 06:36 Dose: 2 u Insulin Human Lispro (Humalog) 4 units SC ACTID [facility] Last Admin: 05/28/17 06:41 Dose: 4 u Lisinopril (Zestril) 40 mg PO DAILY [facility] Last Admin: 05/29/17 08:12 Dose: 40 mg Metformin HCl (Glucophage) 1,000 mg PO BIDWM [facility] Last Admin: 05/29/17 08:13 Dose: 1,000 mg Metoclopramide HCl (Reglan) 10 mg IVP ACTID [facility] Last Admin: 05/29/17 08:12 Dose: 10 mg Ondansetron HCl (Zofran Inj) 4 mg IVP Q6 PRN PRN Reason: Nausea/Vomiting Last Admin: 05/29/17 01:33 Dose: 4 mg - Labs Labs: 05/29/17 05:30 05/29/17 05:30 PT 10.6 Seconds (9.8-13.1) 05/27/17 19:23 INR 1.0 (0.9-1.2) 05/27/17 19:23 APTT 28.6 Seconds (25.6-37.1) 05/27/17 19:23 - Constitutional Appears: Well, Non-toxic - Head Exam Head Exam: ATRAUMATIC, NORMOCEPHALIC - Eye Exam Eye Exam: EOMI, PERRL Pupil Exam: PERRL - ENT Exam ENT Exam: Mucous Membranes Moist - Neck Exam Neck Exam: Normal Inspection - Respiratory Exam Respiratory Exam: NORMAL BREATHING PATTERN - GI/Abdominal Exam GI & Abdominal Exam: absent: Distended, Firm, Guarding, Rigid, Tenderness - Rectal Exam Rectal Exam: Deferred - Extremities Exam Extremities Exam: Normal Inspection - Neurological Exam Neurological Exam: Alert, Awake, Oriented x3 - Psychiatric Exam Psychiatric exam: Normal Affect, Normal Mood - Skin Skin Exam: Intact, Normal Color, Warm Assessment and Plan - Assessment and Plan (Free Text) Assessment: 51 y/o male with PMHx of IDDM2, peripheral neuropathy, gastroparesis, HTN, admitted for intractable vomiting on 05/27/17 Plan: 1) Gastroparesis with intractable vomiting: - Afebrile - WBC 10.7 from 12.0 (15.9 on admission) - Reglan 10 mg IV ACTID - Zofran 4 mg IV q6 [facility] - Abdominal US: No significant abnormality seen. No cause for right upper quadrant pain identified - NPO diet except meds; advance as tolerated to clear liquids at lunch ( moderate carb controlled) - Fluid maintenance LR 1000 mL @ 110 ml/hr - Stool occult blood negative - Monitor vital signs q8 2) IDDM2 - POC glucose 161 from 201 (285 on admission) - Levemir 17 units SC HS - Lispro 4 units SC ACTID - Lispro sliding scale - Metformin 1000 mg PO BIDWM -Hypoglycemic protocol 3) Hypertension - Hx of uncontrolled HTN as per eCW notes - BP 196/94 - asymptomatic - Vasotec 20 mg IV daily [facility]RISTY - Transfer patient to Telemetry for medication - monitor vitals q8 4) Prophylaxis: - Aspirin 81 mg PO daily -Lovenox 40mg SC QD 5) Code Status: -full code
[2017-05-29] MEDS ORDERED: Lactated Ringer's 1,000 ML IV SCH (09:30)
[2017-05-29] MEDS ORDERED: EnalaprilAT 1.25 mg/ml Inj IV SCH (09:45)
[2017-05-29] MEDS: Enalaprilat 2.5 MG/2 ML IV SCH ×2 (14:52→17:08)
[2017-05-29] MEDS: Insulin Detemir 100 Units/ml Inj SC SCH ×2 (21:26→22:00)
[2017-05-30] MEDS: Enalaprilat 2.5 MG/2 ML IV SCH ×4 (00:24→18:31)
[2017-05-30] MEDS: Insulin Lispro (humaLOG) 100 Units/ml Inj SC SCH ×4 (06:42→22:23)
[2017-05-30] MEDS: Enoxaparin 40 mg Syringe SC SCH (09:29)
[2017-05-30] MEDS: Potassium Ch 20mEq in D5-1/2NS 1,000 ML IV SCH (15:20)
[2017-05-31] MEDS: Enalaprilat 2.5 MG/2 ML IV SCH ×2 (00:32→06:38)
--- NOTE | 2017-05-31 03:05 | CP.PCM.PN ---
Subjective - Date & Time of Evaluation Date of Evaluation: 05/30/17 Time of Evaluation: 13:10 - Subjective Subjective: Patient reports no vomiting this AM he is NPO abd pain improved no fever no cp sob Objective - Vital Signs/Intake and Output Vital Signs (last 24 hours): Temp Pulse Resp BP Pulse Ox 98.5 F 87 18 184/86 H 98 05/31/17 00:13 05/31/17 00:13 05/31/17 00:13 05/31/17 00:13 05/31/17 00:13 - Medications Medications: Current Medications Aspirin (Ecotrin) 81 mg PO DAILY [facility] Last Admin: 05/30/17 09:28 Dose: 81 mg Atorvastatin Calcium (Lipitor) 10 mg PO DAILY [facility] Last Admin: 05/30/17 09:29 Dose: 10 mg Dextrose (Dextrose 50% Inj) 0 ml IV STAT PRN; Protocol PRN Reason: Hypoglycemia Protocol Dextrose (Glutose 15) 0 gm PO ONCE PRN; Protocol PRN Reason: Hypoglycemia Protocol Enalaprilat (Vasotec) 5 mg IV 0000,0600,1200,1800 [facility] Last Admin: 05/31/17 00:32 Dose: 5 mg Enoxaparin Sodium (Lovenox) 40 mg SC DAILY [facility] PRN Reason: Protocol Last Admin: 05/30/17 09:29 Dose: 40 mg Glucagon (Glucagen Diagnostic Kit) 0 mg IM STAT PRN; Protocol PRN Reason: Hypoglycemia Protocol Hydralazine HCl (Apresoline) 10 mg IV Q6 PRN PRN Reason: SBP > 170 Last Admin: 05/30/17 16:52 Dose: 10 mg Potassium Chloride/Dextrose/Sod Cl (Potassium Chl 20 Meq In D5-1/2ns) 1,000 mls @ 110 mls/hr IV .Q9H6M [facility] Stop: 05/31/17 14:11 Last Admin: 05/30/17 15:20 Dose: 110 mls/hr Insulin Detemir (Levemir) 17 units SC HS [facility] Last Admin: 05/29/17 22:00 Dose: 17 u Insulin Human Lispro (Humalog) 0 units SC ACHS [facility] PRN Reason: Protocol Last Admin: 05/30/17 22:23 Dose: Not Given Insulin Human Lispro (Humalog) 4 units SC ACTID [facility] Last Admin: 03/15/18 06:41 Dose: 4 u Lisinopril (Zestril) 40 mg PO DAILY [facility] Last Admin: 05/29/17 08:12 Dose: 40 mg Metformin HCl (Glucophage) 1,000 mg PO BIDWM [facility] Last Admin: 05/30/17 09:00 Dose: Not Given Metoclopramide HCl (Reglan) 10 mg IVP ACTID [facility] Last Admin: 05/30/17 17:00 Dose: 10 mg Ondansetron HCl (Zofran Inj) 4 mg IVP Q6 [facility] Last Admin: 05/30/17 21:39 Dose: 4 mg - Labs Labs: 05/29/17 05:30 05/29/17 05:30 PT 10.6 Seconds (9.8-13.1) 05/27/17 19:23 INR 1.0 (0.9-1.2) 05/27/17 19:23 APTT 28.6 Seconds (25.6-37.1) 05/27/17 19:23 - Respiratory Exam Additional comments: CTA Bilat - Cardiovascular Exam Additional comments: S1 S2 RRR - GI/Abdominal Exam Additional comments: Pos BS no guarding Assessment and Plan - Assessment and Plan (Free Text) Plan: Gastroparesis unable to tolerate PO cont IVF Zofran consider clear liquids
[2017-05-31] MEDS: Potassium Ch 20mEq in D5-1/2NS 1,000 ML IV SCH (03:13)
[2017-05-31] MEDS: Insulin Lispro (humaLOG) 100 Units/ml Inj SC SCH ×3 (06:39→16:50)
[2017-05-31 08:11] VITALS: RESP 20
[2017-05-31 08:49] LABS: BLOOD UREA NITROGEN 10 mg/dl (9-20); CALCIUM 9.1 mg/dL (8.4-10.2); GFR AFRICAN-AMERICAN > 60; GFR NON-AFRICAN AMERICAN > 60
[2017-05-31] MEDS ORDERED: Enalaprilat 2.5 MG/2 ML IVP ONE (09:25)
--- NOTE | 2017-05-31 09:30 | CP.PCM.DIS ---
Provider - Provider Date of Admission: 05/29/17 14:32 Attending physician: Beverly York MD Time Spent in preparation of Discharge (in minutes): 45 Diagnosis - Discharge Diagnosis (1) Diabetic gastroparesis associated with type 2 diabetes mellitus Status: Acute Comment: Acute exacerbation that has resolved and was treated with NPO/IVF/ Zofran and Reglan ACTID with gradual resolution. Patient discharged with Zofran and Reglan for 1 week to help transition to normal dietary habits. (2) Diabetes mellitus Status: Chronic Priority: Medium Comment: Chronic and while admitted managed with long-acting as well as SSI due to NPO status. Home regimen resumed after discharge. (3) HTN (hypertension) Status: Chronic Priority: Medium Comment: Asymptomatic but not well-controlled during admission due to NPO status. After diet resumed blood pressure had great improvement. Hospital Course - Lab Results Lab Results: Most Recent Lab Values WBC 10.7 K/uL (4.8-10.8) 05/29/17 05:30 RBC 4.41 Mil/uL (4.40-5.90) 05/29/17 05:30 Hgb 13.3 g/dL (12.0-18.0) 05/29/17 05:30 Hct 39.2 % (35.0-51.0) 05/29/17 05:30 MCV 89.0 fl (80.0-94.0) 05/29/17 05:30 MCH 30.1 pg (27.0-31.0) 05/29/17 05:30 MCHC 33.8 g/dL (33.0-37.0) 05/29/17 05:30 RDW 14.2 % (11.5-14.5) 05/29/17 05:30 Plt Count 230 K/uL (130-400) 05/29/17 05:30 MPV 7.5 fl (7.2-11.7) 05/27/17 19:23 Neut % (Auto) 92.3 % (50.0-75.0) H 05/27/17 19:23 Lymph % (Auto) 5.4 % (20.0-40.0) L 05/27/17 19:23 [place] % (Auto) 2.1 % (0.0-10.0) 05/27/17 19:23 Eos % (Auto) 0.0 % (0.0-4.0) 05/27/17 19:23 Baso % (Auto) 0.2 % (0.0-2.0) 05/27/17 19: Neut # (Auto) 14.7 K/uL (1.8-7.0) H 05/27/17 19:23 Lymph # (Auto) 0.9 K/uL (1.0-4.3) L 05/27/17 19:23 [place] # (Auto) 0.3 K/uL (0.0-0.8) 05/27/17 19: Eos # (Auto) 0.0 K/uL (0.0-0.7) 05/27/17 19: Baso # (Auto) 0.0 K/uL (0.0-0.2) 05/27/17 19: Neutrophils % (Manual) 87 % (42-75) H 05/27/17 19: Band Neutrophils % 5 % (0-2) H 05/27/17 19: Lymphocytes % (Manual) 5 % (20-50) L 05/27/17 19: Monocytes % (Manual) 3 % (0-10) 05/27/17 19: Platelet Estimate Normal (NORMAL) 05/27/17 19: Hypochromasia (manual) Slight 05/27/17 19: PT 10.6 Seconds (9.8-13.1) 05/27/17 19: INR 1.0 (0.9-1.2) 05/27/17 19: APTT 28.6 Seconds (25.6-37.1) 05/27/17 19: Sodium 130 mmol/l (132-148) L 05/31/17 06:40 Potassium 4.7 MMOL/L (3.6-5.0) 05/31/17 06:40 Chloride 93 mmol/L (98-107) L 05/31/17 06:40 Carbon Dioxide 22 mmol/L (22-30) 05/31/17 06:40 Anion Gap 20 (10-20) 05/31/17 06:40 BUN 10 mg/dl (9-20) 05/31/17 06:40 Creatinine 0.6 mg/dl (0.8-1.5) L 05/31/17 06:40 Est GFR ( Amer) > 60 05/31/17 06:40 Est GFR (Non-Af Amer) > 60 05/31/17 06:40 POC Glucose (mg/dL) 220 mg/dL (65-110) H 05/31/17 05:41 Random Glucose 288 mg/dL (75-110) H 05/31/17 06:40 Calcium 9.1 mg/dL (8.4-10.2) 05/31/17 06:40 Total Bilirubin 0.7 mg/dl (0.2-1.3) 05/28/17 05:30 AST 18 U/L (17-59) 05/28/17 05:30 ALT 43 U/L (21-72) 05/28/17 05:30 Alkaline Phosphatase 69 U/L (38-126) 05/28/17 05:30 Total Protein 7.3 G/DL (6.3-8.2) 05/28/17 05:30 Albumin 4.3 g/dL (3.5-5.0) 05/28/17 05:30 Globulin 3.0 gm/dL (2.2-3.9) 05/28/17 05:30 Albumin/Globulin Ratio 1.4 (1.0-2.1) 05/28/17 05:30 Lipase 63 U/L (23-300) 05/27/17 19:23 Urine Color Yellow (YELLOW) 05/27/17 23:19 Urine Clarity Clear (Clear) 05/27/17 23:19 Urine pH 7.0 (5.0-8.0) 05/27/17 23:19 Ur Specific [place] 1.038 (1.003-1.030) H 05/27/17 23:19 Urine Protein 30 mg/dL (NEGATIVE) 05/27/17 23:19 Urine Glucose (UA) >=500 mg/dL (Normal) 05/27/17 23:19 Urine Ketones 20 mg/dL (NEGATIVE) 05/27/17 23:19 Urine Blood Negative (NEGATIVE) 05/27/17 23:19 Urine Nitrate Negative (NEGATIVE) 05/27/17 23:19 Urine Bilirubin Negative (NEGATIVE) 05/27/17 23:19 Urine Urobilinogen 0.2-1.0 mg/dL (0.2-1.0) 05/27/17 23:19 Ur Leukocyte Esterase Neg [place]/uL (Negative) 05/27/17 23:19 Urine RBC (Auto) 4 /hpf (0-3) H 05/27/17 23:19 Urine Microscopic WBC < 1 /hpf (0-5) 05/27/17 23:19 Ur Squamous Epith Cells < 1 /hpf (0-5) 05/27/17 23:19 Stool Occult Blood Negative (NEGATIVE) 05/27/17 21:57 - Hospital Course Hospital Course: Patient seen and examined at bedside with attending. He wants to to go home, is hungry, and has not had any N/V for over 24hrs. 51M with acute exacerbation of his chronic gastroparesis. A course of bowel rest, hydration, and stimulation of peristalsis resolved the condition and patient is now tolerating PO and stable for discharge to home. Home Medications: Resumed, no changes Discharge Exam - Head Exam Head Exam: ATRAUMATIC, NORMOCEPHALIC - Eye Exam Eye Exam: Normal appearance - ENT Exam ENT Exam: Mucous Membranes Moist - Neck Exam Neck exam: Full Rom, Normal Inspection - Respiratory Exam Respiratory Exam: Clear to PA & Lateral, NORMAL BREATHING PATTERN - Cardiovascular Exam Cardiovascular Exam: REGULAR RHYTHM, +S1, +S2 - GI/Abdominal Exam GI & Abdominal Exam: Normal Bowel Sounds, Soft - Extremities Exam Extremities exam: full ROM, normal capillary refill, normal inspection, pedal pulses present - Neurological Exam Neurological exam: Alert, Oriented x3 - Psychiatric Exam Psychiatric exam: Normal Affect, Normal Mood - Skin Skin Exam: Dry, Warm Discharge Plan - Discharge Medications Prescriptions: Metoclopramide [Reglan] 10 mg PO ACTID #21 tab Ondansetron [Zofran Inj] 4 mg PO Q6 #28 tab - Follow Up Plan Condition: STABLE Disposition: HOME/ ROUTINE Patient education suggested?: Yes Instructions: High Blood Pressure in Adults, Gastroparesis (Delayed Gastric Emptying) (DC) Additional Instructions: Resume all home medications as prescribed by PMD return to emergency room for return of symptoms. Referrals: Audrey Larson MD [Family Provider] - 2 Weeks
[2017-05-31] MEDS ORDERED: EnalaprilAT 1.25 mg/ml Inj IVP ONE (10:45)
[2017-05-31] MEDS: Enoxaparin 40 mg Syringe SC SCH (11:10)
[2017-05-31 16:00] VITALS: BP 172/86; PULSE 83; TEMP 98.3; O2SAT 98
--- NOTE | 2017-05-31 21:19 | CP.PCM.PN ---
Subjective - Date & Time of Evaluation Date of Evaluation: 05/30/17 Time of Evaluation: 08:45 - Subjective Subjective: Patient seen and examined at bedside with attending. 51M denies SOB, chest pain, but reports nausea without vomiting at present. He would like to attempt a liquid diet this morning. Objective - Vital Signs/Intake and Output Vital Signs (last 24 hours): Temp Pulse Resp BP Pulse Ox 36.8 C 83 20 172/86 H 98 05/31/17 16:00 05/31/17 16:00 05/31/17 16:00 05/31/17 16:00 05/31/17 18:11 - Labs Labs: 05/29/17 05:30 05/31/17 06:40 PT 10.6 Seconds (9.8-13.1) 05/27/17 19:23 INR 1.0 (0.9-1.2) 05/27/17 19:23 APTT 28.6 Seconds (25.6-37.1) 05/27/17 19:23 - Constitutional Appears: Well, Non-toxic - Head Exam Head Exam: NORMAL INSPECTION - Eye Exam Eye Exam: Normal appearance - ENT Exam ENT Exam: Mucous Membranes Moist, Normal Exam - Neck Exam Neck Exam: Full ROM, Normal Inspection - Respiratory Exam Respiratory Exam: Clear to Ausculation Bilateral, NORMAL BREATHING PATTERN - Cardiovascular Exam Cardiovascular Exam: REGULAR RHYTHM, +S1, +S2 - GI/Abdominal Exam GI & Abdominal Exam: Soft, Normal Bowel Sounds - Extremities Exam Extremities Exam: Full ROM, Normal Capillary Refill, Normal Inspection - Neurological Exam Neurological Exam: Alert, Awake, Oriented x3 - Psychiatric Exam Psychiatric exam: Normal Affect, Normal Mood - Skin Skin Exam: Dry, Warm Assessment and Plan (1) Diabetic gastroparesis associated with type 2 diabetes mellitus Assessment & Plan: - Reglan 10mg, IVP, ACTID - Zofran 4mg, IVP, Q6H CHRISTY - NPO/IVF, but will try FLD Status: Acute (2) Diabetes mellitus Assessment & Plan: - Accu-checks ACHS - SSI - Levemir - Hypoglycemic Bundle Status: Chronic (3) HTN (hypertension) Assessment & Plan: - Vasotec 5mg, IVP, Q6H - HOLD PO medications Status: Chronic (4) DVT prophylaxis Assessment & Plan: Lovenox 40mg, SC Status: Acute
== END 2017-05-31 17:40 | disposition home or self-care (01) | DRG 18 ==
LOC: H.ER 17:42 → H.ERHOLD 22:05 → H.MEDSURG1 05-28 00:44 → H.TEL 05-29 11:15 → OBSVTOIN 05-29 14:32 → H.TEL 05-30 00:37
PROVIDERS: ADMIT Family Medicine Geriatric Medicine; ATTEND Family Medicine Geriatric Medicine
DX: E11.43 Type 2 diabetes mellitus with diabetic autonomic (poly)neuropathy (principal); K80.10 Calculus of gallbladder with chronic cholecystitis without obstruction; R56.9 Unspecified convulsions; K31.84 Gastroparesis; E78.00 Pure hypercholesterolemia, unspecified; I10 Essential (primary) hypertension; J45.909 Unspecified asthma, uncomplicated; K29.70 Gastritis, unspecified, without bleeding; Z79.4 Long term (current) use of insulin; Z79.82 Long term (current) use of aspirin; E11.42 Type 2 diabetes mellitus with diabetic polyneuropathy; M19.90 Unspecified osteoarthritis, unspecified site; Z79.84 Long term (current) use of oral hypoglycemic drugs; Z79.899 Other long term (current) drug therapy

== ENCOUNTER 2017-07-05 17:07 | Inpatient (IN) | payer MEDICAID, OTHER ==
[2017-07-05 17:07] VITALS: BMI 21.1
[2017-07-05] MEDS ORDERED: Sodium Chloride 0.9% 1,000 ML IV STA ×2 (18:19→20:28)
--- NOTE | 2017-07-05 18:29 | ED PDOC ---
HPI: Abdomen Time Seen by Provider: 07/05/17 17:49 Chief Complaint (Nursing): GI Problem History Per: Patient (this is a 51 yo male who presents to the ER with c/o vomiting/diarrhea for 3-4 days. He denies exposure to ill contact. He denies dizziness, chest pain, abdominal pain. He has not been able to eat.) History/Exam Limitations: no limitations Past Medical History Reviewed: Historical Data, Nursing Documentation, Vital Signs Vital Signs: Last Vital Signs Temp 98.1 F 07/05/17 17:10 Pulse 106 H 07/05/17 18:14 Resp 18 07/05/17 17:10 BP 134/87 07/05/17 17:10 Pulse Ox 99 07/05/17 17:10 - Medical History PMH: Arthritis, Asthma, Diabetes (IDDM), Gastritis (H Pylori), HTN, Hypercholesterolemia Denies: Atrial Fibrillation, CHF, HIV, Peripheral Edema, Chronic Kidney Disease - Surgical History Surgical History: Endoscopy - Family History Family History: States: Unknown Family Hx, Diabetes, Hypertension - Living Arrangements Living Arrangements: With Family - Home Medications Home Medications: Ambulatory Orders Medication Instructions Recorded Aspirin [Ecotrin] 81 mg PO DAILY tabec 05/31/17 Atorvastatin [Lipitor] 10 mg PO DAILY tab 05/31/17 Insulin Detemir [Levemir] 17 units SC HS vial 05/31/17 Lisinopril [Zestril] 40 mg PO DAILY tab 05/31/17 MetFORMIN [glucoPHAGE] 1,000 mg PO BIDWM tab 05/31/17 Metoclopramide [Reglan] 10 mg PO ACTID #21 tab 05/31/17 Ondansetron [Zofran Inj] 4 mg PO Q6 #28 tab 05/31/17 - Allergies Allergies/Adverse Reactions: Allergies Allergy/AdvReac Type Severity Reaction Status Date / Time Penicillins Allergy RASH Verified 03/05/17 08:33 strawberry Allergy RASH Verified 03/05/17 08:33 Review of Systems ROS Statement: Except As Marked, All Systems Reviewed And Found Negative Constitutional: Negative for: Fever, Chills Cardiovascular: Negative for: Chest Pain Gastrointestinal: Positive for: Nausea, Vomiting, Diarrhea. Negative for: Abdominal Pain Genitourinary Male: Negative for: Dysuria Musculoskeletal: Negative for: Back Pain Neurological: Negative for: Weakness Psych: Negative for: Anxiety Physical Exam - Reviewed Nursing Documentation Reviewed: Yes Vital Signs Reviewed: Yes - Physical Exam Appears: Positive for: Well, Non-toxic, No Acute Distress Head Exam: Positive for: ATRAUMATIC, NORMAL INSPECTION, NORMOCEPHALIC Skin: Positive for: Normal Color, Warm, DRY Eye Exam: Positive for: Normal appearance, EOMI ENT: Positive for: Other (mucous membrane dry) Neck: Positive for: Normal, Painless ROM Cardiovascular/Chest: Positive for: Regular Rate, Rhythm Respiratory: Positive for: CNT, Normal Breath Sounds Gastrointestinal/Abdominal: Positive for: Normal Exam, Soft Back: Positive for: Normal Inspection Extremity: Positive for: Normal ROM Neurologic/Psych: Positive for: Alert, Oriented - ECG O2 Sat by Pulse Oximetry: 99 Disposition - Clinical Impression Clinical Impression: Gastroenteritis - Patient ED Disposition Is Patient to be Admitted: Transfer of Care - Disposition Disposition: Transfer of Care Disposition Time: 18:45 Condition: FAIR Patient Signed Over To: Gilbert Duke Present On Arrival: None
[2017-07-05 18:47] LABS: BASO % 0.1 % (0.0-2.0); EOS % 0.1 % (0.0-4.0); LYMPH # 1.9 K/uL (1.0-4.3); LYMPH % 12.4 % (20.0-40.0); MEAN CELL VOLUME 86.9 fl (80.0-94.0); MEAN CORPUSCULAR HEMOGLOBIN 30.7 pg (27.0-31.0); MEAN CORPUSCULAR HGB CONC 35.3 g/dL (33.0-37.0); MEAN PLATELET VOLUME 8.4 fl (7.2-11.7); MONO # 1.8 K/uL (0.0-0.8); MONO % 12.1 % (0.0-10.0); NEUT # 11.4 K/uL (1.8-7.0); NEUT % 75.3 % (50.0-75.0); NRBC % 0.1 % (0.0-0.0); RBC 5.85 Mil/uL (4.40-5.90); RED CELL DISTRIBUTION WIDTH 13.6 % (11.5-14.5); WHITE BLOOD COUNT 15.1 K/uL (4.8-10.8)
--- NOTE | 2017-07-05 19:10 | ED PDOC ---
- Laboratory Results Result Diagrams: 07/06/17 04:25 07/06/17 04:25 - ECG O2 Sat by Pulse Oximetry: 99 (RA) Pulse Ox Interpretation: Normal Medical Decision Making Medical Decision Making: Time: 19:00 --Patient signed out to me by Dr. Morelos pending reevaluation and possible discharge. Time: 20:27 --Labs show elevated BUN and creatinine. WBC 115. --CT Abdomen & Pelvis Time: 21:40 CT ABDOMEN & PELVIS FINDINGS: Limitations: Lack of intravenous contrast. Lung bases: No acute findings. Heart: Trace pericardial effusion. Mediastinum: [id number] mural thickening of distal esophagus. Mild stranding within adjacent fat. ABDOMEN: Liver: Unremarkable. Gallbladder and bile ducts: No calcified stones. No ductal dilation. Pancreas: Unremarkable. No ductal dilation. Spleen: No splenomegaly. Adrenals: No mass. Kidneys and ureters: No renal calculi. No hydronephrosis. Stomach and bowel: Mild mural thickening versus underdistention of stomach. Few scattered diverticula within colon. No associated inflammatory stranding. No definite bowel wall thickening. No instruction. Appendix: Normal caliber. No inflammation. PELVIS: Bladder: Unremarkable. No stones. Reproductive: Enlarged prostate gland. ABDOMEN and PELVIS: Intraperitoneal space: No significant fluid collection. No free air. Bones/joints: Early degenerative changes of spine. No acute fracture. Soft tissues: Unremarkable. Vasculature: Minimal atherosclerotic disease. No aneurysm. Lymph nodes: No pathologically enlarged lymph nodes. IMPRESSION: 1. Probable esophagitis/possible gastritis. Clinical correlation is needed. 2. Incidental/non-acute findings are described above. Time: 22:25 --Patient stable for discharge pending PO challenge. 0257 Upon re-evaluation, patient is still tachycardiac. Labs reviewed: repeat potassium still low at 2.8. Repeat anion gap is 19. Glucose is 303 which is a decrease from prior level. Patient will be admitted to [facility] (INPATIENT TELE) for dehydration and hypokalemia. Scribe Attestation: Documented by Alton Mckinnon and Mary Ellen Murray, acting as a scribe for Gilbert Duke MD. Provider Scribe Attestation: All medical record entries made by the Scribe were at my direction and personally dictated by me. I have reviewed the chart and agree that the record accurately reflects my personal performance of the history, physical exam, medical decision making, and the department course for this patient. I have also personally directed, reviewed, and agree with the discharge instructions and disposition. Disposition - Clinical Impression Clinical Impression: Gastroenteritis - POA Present On Arrival: None - Disposition Disposition: Admitted as In-Patient (INPATIENT TELE) Disposition Time: 02:10 Condition: FAIR
[2017-07-05 19:17] LABS: ALB/GLOB RATIO 1.2 (1.0-2.1); ALBUMIN 4.8 g/dL (3.5-5.0); CALCIUM 9.3 mg/dL (8.4-10.2)
[2017-07-05] MEDS ORDERED: Potassium Chloride 20 mEq ER Tab PO ONE ×2 (20:09→22:09)
[2017-07-05 21:33] LABS: SQUAMOUS EPITHIAL 3 /hpf (0-5); URINE BILIRUBIN NEGATIVE (NEGATIVE); URINE BLOOD NEGATIVE (NEGATIVE); URINE CLARITY SLIGHTY-CLOUDY (Clear); URINE COLOR YELLOW (YELLOW); URINE GLUCOSE (UA) >=500 mg/dL (Normal); URINE LEUKOCYTE ESTERASE NEG Leu/uL (Negative); URINE PROTEIN 100 mg/dL (NEGATIVE); URINE UROBILINOGEN 0.2-1.0 mg/dL (0.2-1.0)
--- NOTE | 2017-07-05 21:40 | CT ---
EXAM: CT Abdomen and Pelvis Without Intravenous Contrast CLINICAL HISTORY: 51 years old, male; Signs and symptoms; Vomiting and other: Diarrhea 3-4 days; Patient HX: Gastrits; Additional info: Abd pain TECHNIQUE: Axial computed tomography images of the abdomen and pelvis without intravenous contrast. All CT scans at this facility use one or more dose reduction techniques, viz.: automated exposure control; ma/kV adjustment per patient size (including targeted exams where dose is matched to indication; i.e. head); or iterative reconstruction technique. Coronal and sagittal reformatted images were created and reviewed. COMPARISON: CT - ABD PELVIS IV CONTRAST ONLY 2017-03-26 14:32 FINDINGS: Limitations: Lack of intravenous contrast. Lung bases: No acute findings. Heart: Trace pericardial effusion. Mediastinum: [id number] mural thickening of distal esophagus. Mild stranding within adjacent fat. ABDOMEN: Liver: Unremarkable. Gallbladder and bile ducts: No calcified stones. No ductal dilation. Pancreas: Unremarkable. No ductal dilation. Spleen: No splenomegaly. Adrenals: No mass. Kidneys and ureters: No renal calculi. No hydronephrosis. Stomach and bowel: Mild mural thickening versus underdistention of stomach. Few scattered diverticula within colon. No associated inflammatory stranding. No definite bowel wall thickening. No instruction. Appendix: Normal caliber. No inflammation. PELVIS: Bladder: Unremarkable. No stones. Reproductive: Enlarged prostate gland. ABDOMEN and PELVIS: Intraperitoneal space: No significant fluid collection. No free air. Bones/joints: Early degenerative changes of spine. No acute fracture. Soft tissues: Unremarkable. Vasculature: Minimal atherosclerotic disease. No aneurysm. Lymph nodes: No pathologically enlarged lymph nodes. IMPRESSION: 1. Probable esophagitis/possible gastritis. Clinical correlation is needed. 2. Incidental/non-acute findings are described above.
[2017-07-05] MEDS ORDERED: Insulin Regular 100 units/ml SC STA (23:01)
[2017-07-06 01:40] LABS: ALB/GLOB RATIO 1.2 (1.0-2.1); ALBUMIN 4.1 g/dL (3.5-5.0); ALT/SGPT 34 U/L (21-72); AST/SGOT 27 U/L (17-59); BLOOD UREA NITROGEN 45 mg/dl (9-20); CALCIUM 8.4 mg/dL (8.4-10.2); GFR AFRICAN-AMERICAN > 60; GFR NON-AFRICAN AMERICAN 58
[2017-07-06] MEDS ORDERED: Potassium Chloride 20 mEq ER Tab PO ONE ×2 (02:55→04:01)
[2017-07-06] MEDS ORDERED: KCL 40MEQ/NS 1L 1,000 ML IV SCH ×2 (03:45→04:50)
[2017-07-06] MEDS ORDERED: Dextrose 50% SYRINGE Inj (50 ml) IV PRN ×2 (03:45→12:02)
[2017-07-06] MEDS ORDERED: Glucagon Recombinant 1 mg Inj IM PRN ×2 (03:45→12:02)
--- NOTE | 2017-07-06 04:11 | CP.PCM.HP ---
History of Present Illness - History of Present Illness History of Present Illness: 51 y/o male with PMHx of IDDM2, HTN, and gastroparesis presented to [facility] ED on Thursday for evaluation of intractable and persistent vomiting, associated with intermittent nausea. Patient reports he has been vomiting since last , reports approximately 10 episodes of non bilious emesis every day since then. Last emesis were reported on Thursday before ER presentation. States he noticed in some of the emesis " drops of blood". He denies any sick contacts or dietary irregularities. Also reports 2 episodes of soft non bloody diarrheas on and Thursday, but denies any associated abdominal pain. Denies any bowel movement on Thursday or Thursday. Denies fever/chills, headaches, changes in vision, CP/SOB/palpitations, abdominal pain, urinary symptoms. PMD: Larson PMHx: IDDM2, HTN, Gastroparesis, peripheral neuropathy Meds as per [facility] and e[facility]: Aspirin 81mg QD, Levemir 17 units SC HS, atorvastatin 10mg QD, Lisinopril 40mg QD, Metformin 1000mg BID, Gabapentin 600mg HS, metoclopramide 10 mg PO TID, zofran 4 mg PO Q6 PRN ALL: pencillin (swelling) Psurghx: none FamilyHx: HTN, seizures SocialHx: denies ETOH/Tobacco/drug abuse Next of Kin: Fannie Cevallos [phone] Code Status: full code ER course: VS: elevated BP, tachy, afebrile PE : dry mucous membranes labs: leukocytosis ( possible hemoconcentration), azothemia, hypokalemia Tx:IV fluids 2 L bolus, potassium 20 meq PO once given at 22:20 on 07/05/17, still pending 40 meq PO ordered at 2:55 am on 07/06/17 by ER provider, zofran 4 mg IV once, Pepcid 20 mg IV once Present on Admission - Present on Admission Any Indicators Present on Admission: No History of DVT/PE: No History of Uncontrolled Diabetes: No Urinary Catheter: No Decubitus Ulcer Present: No Review of Systems - Review of Systems All systems: reviewed and no additional remarkable complaints except (as per HPI ) Past Patient History - Infectious Disease Hx of Infectious Diseases: None - Past Medical History & Family History Past Medical History?: Yes - Past Social History Smoking Status: Never Smoked - CARDIAC Hx Atrial Fibrillation: No Hx Congestive Heart Failure: No Hx Hypercholesterolemia: Yes Hx Hypertension: Yes Hx Peripheral Edema: No - PULMONARY Hx Asthma: Yes - NEUROLOGICAL Hx Neurological Disorder: No - HEENT Hx HEENT Problems: No - RENAL Hx Chronic Kidney Disease: No - ENDOCRINE/METABOLIC Hx Endocrine Disorders: Yes Hx Diabetes Mellitus Type 2: Yes - HEMATOLOGICAL/ONCOLOGICAL Hx Human Immunodeficiency Virus (HIV): No - INTEGUMENTARY Hx Dermatological Problems: No - MUSCULOSKELETAL/RHEUMATOLOGICAL Hx Arthritis: Yes - GASTROINTESTINAL Hx Gastritis: Yes (H Pylori) - GENITOURINARY/GYNECOLOGICAL Hx Genitourinary Disorders: No - PSYCHIATRIC Hx Psychophysiologic Disorder: No Hx Emotional Abuse: No Hx Physical Abuse: No Hx Substance Use: No - SURGICAL HISTORY Hx Surgeries: Yes - ANESTHESIA Hx Anesthesia: No Meds Allergies/Adverse Reactions: Allergies Allergy/AdvReac Type Severity Reaction Status Date / Time Penicillins Allergy RASH Verified 03/05/17 08:33 strawberry Allergy RASH Verified 03/05/17 08:33 Physical Exam - Constitutional Appears: Non-toxic, No Acute Distress - Eye Exam Eye Exam: Normal appearance - ENT Exam ENT Exam: Mucous Membranes Dry - Respiratory Exam Respiratory Exam: Clear to Auscultation Bilateral, NORMAL BREATHING PATTERN. absent: Rales, Rhonchi, Wheezes, Respiratory Distress, Stridor - Cardiovascular Exam Cardiovascular Exam: Tachycardia, REGULAR RHYTHM, +S1, +S2 - GI/Abdominal Exam GI & Abdominal Exam: Normal Bowel Sounds, Soft. absent: Distended, Guarding, Rebound, Rigid, Tenderness - Extremities Exam Extremities exam: Positive for: normal inspection. Negative for: calf tenderness, pedal edema - Back Exam Back exam: NORMAL INSPECTION. absent: CVA tenderness (L), CVA tenderness (R) - Neurological Exam Neurological exam: Alert, Oriented x3 - Psychiatric Exam Psychiatric exam: Normal Affect, Normal Mood - Skin Skin Exam: Dry, Intact, Normal Color Results - Vital Signs Recent Vital Signs: Last Vital Signs Temp 98.7 F 07/06/17 03:48 Pulse 93 H 07/06/17 03:48 Resp 16 07/06/17 03:48 BP 148/90 07/06/17 03:48 Pulse Ox 94 L 07/06/17 03:48 - Labs Result Diagrams: 07/05/17 18:30 07/06/17 04:25 Labs: Laboratory Results - last 24 hr 07/05/17 07/05/17 07/05/17 18:00 18:30 18:30 WBC 15.1 H RBC 5.85 Hgb 18.0 D Hct 50.8 MCV 86.9 D MCH 30.7 MCHC 35.3 RDW 13.6 Plt Count 298 MPV 8.4 Neut % (Auto) 75.3 H Lymph % (Auto) 12.4 L [place] % (Auto) 12.1 H Eos % (Auto) 0.1 Baso % (Auto) 0.1 Neut # (Auto) 11.4 H Lymph # (Auto) 1.9 [place] # (Auto) 1.8 H Eos # (Auto) 0.0 Baso # (Auto) 0.0 Sodium 139 Potassium 2.8 L Chloride 73 L D Carbon Dioxide 39 H Anion Gap 30 H BUN 57 H Creatinine 1.7 H Est GFR ( Amer) 51 Est GFR (Non-Af Amer) 42 POC Glucose (mg/dL) 292 H Random Glucose 365 H Calcium 9.3 Total Bilirubin 1.7 H AST 40 ALT 34 Alkaline Phosphatase 99 Total Protein 8.7 H Albumin 4.8 Globulin 3.9 Albumin/Globulin Ratio 1.2 Amylase 148 H Urine Color Urine Clarity Urine pH Ur Specific [place] Urine Protein Urine Glucose (UA) Urine Ketones Urine Blood Urine Nitrate Urine Bilirubin Urine Urobilinogen Ur Leukocyte Esterase Urine RBC (Auto) Urine Microscopic WBC Ur Squamous Epith Cells Hyaline Casts 07/05/17 07/06/17 07/06/17 20:20 01:08 03:51 WBC RBC Hgb Hct MCV MCH MCHC RDW Plt Count MPV Neut % (Auto) Lymph % (Auto) [place] % (Auto) Eos % (Auto) Baso % (Auto) Neut # (Auto) Lymph # (Auto) [place] # (Auto) Eos # (Auto) Baso # (Auto) Sodium 140 Potassium 2.8 L Chloride 83 L Carbon Dioxide 38 H Anion Gap 22 H BUN 45 H Creatinine 1.3 Est GFR ( Amer) > 60 Est GFR (Non-Af Amer) 58 POC Glucose (mg/dL) 254 H Random Glucose 303 H Calcium 8.4 Total Bilirubin 1.1 AST 27 ALT 34 Alkaline Phosphatase 71 Total Protein 7.5 Albumin 4.1 Globulin 3.3 Albumin/Globulin Ratio 1.2 Amylase Urine Color Yellow Urine Clarity Slighty-cloudy Urine pH 6.0 Ur Specific [place] 1.023 Urine Protein 100 Urine Glucose (UA) >=500 Urine Ketones 20 Urine Blood Negative Urine Nitrate Negative Urine Bilirubin Negative Urine Urobilinogen 0.2-1.0 Ur Leukocyte Esterase Neg Urine RBC (Auto) 3 Urine Microscopic WBC 4 Ur Squamous Epith Cells 3 Hyaline Casts 3-5 H Assessment & Plan - Assessment and Plan (Free Text) Assessment: 1 y/o male with PMHx of IDDM2, HTN, and gastroparesis admitted with intractable vomiting, dehydration, and Hypokalemia. Plan: Intractable Emesis -Telemetry unit -could be 2/2 h/o Gastroparesis -leukocytosis on admission could be 2/2 hemoconcentration -afebrile -NPO -IV fluids -emesis control -Metoclopramide 10 mg IV TID for now, will consider to switch to home Metoclopramide once tolerates PO -protonix 40 mg IV -advance diet to clear fluids as tolerated -repeat CBC -f/u Lipase -mild elevated amylase on admission, not specific Hypokalemia -K+ 2.8 on admission -patient asymptomatic at the tie of evaluation -potassium 20 meq PO once given in ER -Pending potassium 40 meq PO ordered by ER provider -repeat K+ in ER after 20 meq of PO potassium was 2.8 -repeat potassium -Give KCL 40 meq IV -f/u EKG Azothemia -most likely 2/2 dehydration -improving after IV fluids -c/w IV fluids IDDM2 -accucheck ACHS -Regular insulin by sliding scale -hypoglycemic protocol -c/w home meds once tolerated PO Hypertension -elevated, asymptomatic on admission -hx of uncontrolled HTN as per eCW notes -c/w home meds once tolerating PO -monitor vitals DVT prophylaxis SCDs for now questionable hematemesis reported by patient. H/H normal, possible concentrated will monitor Code Status: Full code - Date & Time Date: 07/06/17 Time: 03:45
[2017-07-06] MEDS ORDERED: Sodium Chloride 0.9% 1,000 ML IV SCH (04:15)
[2017-07-06] MEDS ORDERED: Potassium Chloride 20 mEq 100 ML IVPB SCH (05:00)
[2017-07-06 05:20] LABS: SQUAMOUS EPITHIAL 1 /hpf (0-5); URINE BILIRUBIN NEGATIVE (NEGATIVE); URINE BLOOD NEGATIVE (NEGATIVE); URINE CLARITY SLIGHTY-CLOUDY (Clear); URINE COLOR YELLOW (YELLOW); URINE GLUCOSE (UA) >=500 mg/dL (Normal); URINE LEUKOCYTE ESTERASE NEG Leu/uL (Negative); URINE PROTEIN 100 mg/dL (NEGATIVE); URINE UROBILINOGEN 0.2-1.0 mg/dL (0.2-1.0)
[2017-07-06 06:14] LABS: BLOOD UREA NITROGEN 39 mg/dl (9-20); CALCIUM 8.6 mg/dL (8.4-10.2); GFR AFRICAN-AMERICAN > 60; GFR NON-AFRICAN AMERICAN > 60
[2017-07-06 07:29] LABS: BASO % 0.1 % (0.0-2.0); EOS % 0.3 % (0.0-4.0); LYMPH # 1.9 K/uL (1.0-4.3); LYMPH % 16.3 % (20.0-40.0); MEAN CELL VOLUME 87.6 fl (80.0-94.0); MEAN CORPUSCULAR HEMOGLOBIN 30.2 pg (27.0-31.0); MEAN CORPUSCULAR HGB CONC 34.4 g/dL (33.0-37.0); MEAN PLATELET VOLUME 8.2 fl (7.2-11.7); MONO # 1.6 K/uL (0.0-0.8); MONO % 13.6 % (0.0-10.0); NEUT # 8.2 K/uL (1.8-7.0); NEUT % 69.7 % (50.0-75.0); NRBC % 0.1 % (0.0-0.0); RBC 5.12 Mil/uL (4.40-5.90); RED CELL DISTRIBUTION WIDTH 13.2 % (11.5-14.5); WHITE BLOOD COUNT 11.7 K/uL (4.8-10.8)
[2017-07-06 07:35] LABS: HEMOGLOBIN 15.4 g/dL (12.0-18.0)
--- NOTE | 2017-07-06 09:21 | CARD ---
APPROVED REPORT EKG Measurement Heart [id number] MI [id number] <Conclusion> Sinus tachycardia Possible Left atrial enlargement Prolonged QT Abnormal ECG
[2017-07-06] MEDS: Insulin Regular 100 units/ml SC SCH ×6 (09:58→23:43)
[2017-07-06 15:33] LABS: BARBITURATES, UR NEGATIVE (NEGATIVE); BENZODIAZEPINES, UR NEGATIVE (NEGATIVE); OPIATES, UR NEGATIVE (NEGATIVE); PHENCYCLIDINE, UR NEGATIVE (NEGATIVE)
[2017-07-06] MEDS ORDERED: Docusate-Senna 50 mg-8.6 mg Tab PO SCH (22:00)
[2017-07-06] MEDS ORDERED: Insulin Detemir 100 Units/ml Inj SC SCH (22:00)
[2017-07-07 05:58] LABS: LDL CHOLESTEROL 82 mg/dL (0-129)
[2017-07-07 06:05] LABS: HEMOGLOBIN 15.5 g/dL (12.0-18.0); MEAN CELL VOLUME 88.3 fl (80.0-94.0); MEAN CORPUSCULAR HEMOGLOBIN 30.3 pg (27.0-31.0); MEAN CORPUSCULAR HGB CONC 34.3 g/dL (33.0-37.0); RBC 5.12 Mil/uL (4.40-5.90); RED CELL DISTRIBUTION WIDTH 12.8 % (11.5-14.5); WHITE BLOOD COUNT 10.1 K/uL (4.8-10.8)
[2017-07-07 06:32] LABS: BLOOD UREA NITROGEN 24 mg/dl (9-20); CALCIUM 9.1 mg/dL (8.4-10.2); GFR AFRICAN-AMERICAN > 60; GFR NON-AFRICAN AMERICAN > 60; HDL CHOLESTEROL 76 MG/DL (30-70)
[2017-07-07] MEDS ORDERED: Potassium Chloride 20 mEq ER Tab PO ONE (07:18)
--- NOTE | 2017-07-07 07:26 | CP.PCM.PN ---
Subjective - Date & Time of Evaluation Date of Evaluation: 07/07/17 Objective - Vital Signs/Intake and Output Vital Signs (last 24 hours): Temp Pulse Resp BP Pulse Ox 98 F 76 18 124/73 98 07/07/17 05:03 07/07/17 05:03 07/07/17 05:03 07/07/17 05:03 07/07/17 05:03 - Medications Medications: Current Medications Aspirin (Ecotrin) 81 mg PO DAILY [facility] Atorvastatin Calcium (Lipitor) 10 mg PO DAILY [facility] Dextrose (Dextrose 50% Inj) 0 ml IV STAT PRN; Protocol PRN Reason: Hypoglycemia Protocol Dextrose (Glutose 15) 0 gm PO ONCE PRN; Protocol PRN Reason: Hypoglycemia Protocol Dextrose (Dextrose 50% Inj) 0 ml IV STAT PRN; Protocol PRN Reason: Hypoglycemia Protocol Dextrose (Glutose 15) 0 gm PO ONCE PRN; Protocol PRN Reason: Hypoglycemia Protocol Gabapentin (Neurontin) 600 mg PO DAILY [facility] Last Admin: 07/06/17 22:42 Dose: 600 mg Glucagon (Glucagen Diagnostic Kit) 0 mg IM STAT PRN; Protocol PRN Reason: Hypoglycemia Protocol Glucagon (Glucagen Diagnostic Kit) 0 mg IM STAT PRN; Protocol PRN Reason: Hypoglycemia Protocol Insulin Detemir (Levemir) 17 units SC HS [facility] Last Admin: 07/06/17 23:42 Dose: 17 units Insulin Human Regular (Humulin R) 0 units SC [facility] PRN Reason: Protocol Last Admin: 07/06/17 23:43 Dose: Not Given Lisinopril (Zestril) 20 mg PO DAILY [facility] Metformin HCl (Glucophage) 1,000 mg PO BIDWM [facility] Last Admin: 07/06/17 18:47 Dose: 1,000 mg Metoclopramide HCl (Reglan) 10 mg IVP TID [facility] Last Admin: 07/06/17 17:57 Dose: 10 mg Pantoprazole Sodium (Protonix Inj) 40 mg IVP DAILY [facility] Last Admin: 07/06/17 09:43 Dose: 40 mg Senna/Docusate Sodium (Senokot S 50 Mg-8.6 Mg) 2 tab PO HS [facility] Last Admin: 07/06/17 22:42 Dose: 2 tab - Labs Labs: 07/07/17 04:20 07/07/17 04:20
[2017-07-07 08:00] VITALS: O2SAT 97
[2017-07-07] MEDS ORDERED: Enoxaparin 40 mg Syringe SC SCH ×2 (09:00→11:57)
[2017-07-07] MEDS: Insulin Regular 100 units/ml SC SCH ×3 (09:02→17:38)
--- NOTE | 2017-07-07 09:34 | CP.PCM.DIS ---
Provider - Provider Date of Admission: 07/06/17 02:54 Attending physician: Beverly York MD Time Spent in preparation of Discharge (in minutes): 20 Diagnosis - Discharge Diagnosis (1) Gastroparesis Status: Acute Hospital Course - Lab Results Lab Results: Most Recent Lab Values WBC 10.1 K/uL (4.8-10.8) 07/07/17 04:20 RBC 5.12 Mil/uL (4.40-5.90) 07/07/17 04:20 Hgb 15.5 g/dL (12.0-18.0) 07/07/17 04:20 Hct 45.2 % (35.0-51.0) 07/07/17 04:20 MCV 88.3 fl (80.0-94.0) 07/07/17 04:20 MCH 30.3 pg (27.0-31.0) 07/07/17 04:20 MCHC 34.3 g/dL (33.0-37.0) 07/07/17 04:20 RDW 12.8 % (11.5-14.5) 07/07/17 04:20 Plt Count 188 K/uL (130-400) 07/07/17 04:20 MPV 8.2 fl (7.2-11.7) 07/06/17 04:25 Neut % (Auto) 69.7 % (50.0-75.0) 07/06/17 04:25 Lymph % (Auto) 16.3 % (20.0-40.0) L 07/06/17 04:25 [place] % (Auto) 13.6 % (0.0-10.0) H 07/06/17 04:25 Eos % (Auto) 0.3 % (0.0-4.0) 07/06/17 04:25 Baso % (Auto) 0.1 % (0.0-2.0) 07/06/17 04:25 Neut # (Auto) 8.2 K/uL (1.8-7.0) H 07/06/17 04:25 Lymph # (Auto) 1.9 K/uL (1.0-4.3) 07/06/17 04:25 [place] # (Auto) 1.6 K/uL (0.0-0.8) H 07/06/17 04:25 Eos # (Auto) 0.0 K/uL (0.0-0.7) 07/06/17 04:25 Baso # (Auto) 0.0 K/uL (0.0-0.2) 07/06/17 04:25 Sodium 137 mmol/l (132-148) 07/07/17 04:20 Potassium 3.2 MMOL/L (3.6-5.0) L 07/07/17 04:20 Chloride 93 mmol/L (98-107) L 07/07/17 04:20 Carbon Dioxide 33 mmol/L (22-30) H 07/07/17 04:20 Anion Gap 14 (10-20) 07/07/17 04:20 BUN 24 mg/dl (9-20) H 07/07/17 04:20 Creatinine 1.0 mg/dl (0.8-1.5) 07/07/17 04:20 Est GFR ( Amer) > 60 07/07/17 04:20 Est GFR (Non-Af Amer) > 60 07/07/17 04:20 POC Glucose (mg/dL) 107 mg/dL (65-110) 07/07/17 05:00 Random Glucose 113 mg/dL (75-110) H 07/07/17 04:20 Calcium 9.1 mg/dL (8.4-10.2) 07/07/17 04:20 Magnesium 2.2 MG/DL (1.6-2.3) 07/06/17 04:00 Total Bilirubin 1.1 mg/dl (0.2-1.3) 07/06/17 01:08 AST 27 U/L (17-59) 07/06/17 01:08 ALT 34 U/L (21-72) 07/06/17 01:08 Alkaline Phosphatase 71 U/L (38-126) 07/06/17 01:08 Total Protein 7.5 G/DL (6.3-8.2) 07/06/17 01:08 Albumin 4.1 g/dL (3.5-5.0) 07/06/17 01:08 Globulin 3.3 gm/dL (2.2-3.9) 07/06/17 01:08 Albumin/Globulin Ratio 1.2 (1.0-2.1) 07/06/17 01:08 Triglycerides 83 mg/DL (0-149) 07/07/17 04:20 Cholesterol 190 mg/dL (0-199) 07/07/17 04:20 LDL Cholesterol Direct 82 mg/dL (0-129) 07/07/17 04:20 HDL Cholesterol 76 MG/DL (30-70) H 07/07/17 04:20 Amylase 148 U/L (30-110) H 07/05/17 18:30 Lipase 69 U/L (23-300) 07/06/17 04:25 Urine Color Yellow (YELLOW) 07/06/17 04:00 Urine Clarity Slighty-cloudy (Clear) 07/06/17 04:00 Urine pH 6.0 (5.0-8.0) 07/06/17 04:00 Ur Specific [place] 1.024 (1.003-1.030) 07/06/17 04:00 Urine Protein 100 mg/dL (NEGATIVE) 07/06/17 04:00 Urine Glucose (UA) >=500 mg/dL (Normal) 07/06/17 04:00 Urine Ketones 20 mg/dL (NEGATIVE) 07/06/17 04:00 Urine Blood Negative (NEGATIVE) 07/06/17 04:00 Urine Nitrate Negative (NEGATIVE) 07/06/17 04:00 Urine Bilirubin Negative (NEGATIVE) 07/06/17 04:00 Urine Urobilinogen 0.2-1.0 mg/dL (0.2-1.0) 07/06/17 04:00 Ur Leukocyte Esterase Neg [place]/uL (Negative) 07/06/17 04:00 Urine RBC (Auto) < 1 /hpf (0-3) 07/06/17 04:00 Urine Microscopic WBC < 1 /hpf (0-5) 07/06/17 04:00 Ur Squamous Epith Cells 1 /hpf (0-5) 07/06/17 04:00 Hyaline Casts 6-10 /hpf (0-2) H 07/06/17 04:00 Urine Opiates Screen Negative (NEGATIVE) 07/06/17 14:50 Urine Methadone Screen Negative (NEGATIVE) 07/06/17 14:50 Ur Barbiturates Screen Negative (NEGATIVE) 07/06/17 14:50 Ur Phencyclidine Scrn Negative (NEGATIVE) 04/23/18 14:50 Ur Amphetamines Screen Negative (NEGATIVE) 07/06/17 14:50 U Benzodiazepines Scrn Negative (NEGATIVE) 07/06/17 14:50 U Oth Cocaine Metabols Negative (NEGATIVE) 07/06/17 14:50 U Cannabinoids Screen Positive (NEGATIVE) H 07/06/17 14:50 - Hospital Course Hospital Course: 51 y/o male with PMHx of IDDM2, HTN, and gastroparesis presented to [facility] ED on 07/05/2017 for evaluation of intractable and persistent vomiting, associated with intermittent nausea. Pt stable. No vomiting since admission. Nausea improved. Transitioned to PO diet from NPO as tolerated. Pt was on quadruple therapy for h. pylori but wasn't able to complete therapy due to vomiting. Hypokalemia resolved with potassium supplementation. Prescription for K levels given to patient for follow up in 1 week. HTN: elevated from 140-170s systolic. Amlodipine 5 mg qDaily added. Famotidine 10 mg q daily added; patient benefitted while in hospital. Hba1c: 8.4; Hx: 01/2016: 11.1 Medications reconciled and transmitted to [facility] pharmacy. Discharge Exam - Head Exam Head Exam: ATRAUMATIC, NORMAL INSPECTION, NORMOCEPHALIC - Eye Exam Eye Exam: EOMI - Respiratory Exam Respiratory Exam: Clear to PA & Lateral, NORMAL BREATHING PATTERN. absent: Wheezes - Cardiovascular Exam Cardiovascular Exam: +S1, +S2 - GI/Abdominal Exam GI & Abdominal Exam: Normal Bowel Sounds, Soft. absent: Tenderness - Neurological Exam Neurological exam: Alert, CN II-XII Intact, Oriented x3 - Psychiatric Exam Psychiatric exam: Normal Affect, Normal Mood Discharge Plan - Discharge Medications Prescriptions: amLODIPine [Norvasc] 5 mg PO DAILY #30 tab Aspirin [Ecotrin] 81 mg PO DAILY #30 tabec Atorvastatin [Lipitor] 10 mg PO DAILY #30 tab Docusate Sodium/Sennosides A [Senokot S 50 MG-8.6 MG] 2 tab PO HS #10 tab Famotidine 10 mg PO DAILY PRN #30 tablet PRN Reason: Heartburn Gabapentin [Neurontin] 600 mg PO HS #30 tab Insulin Glargine,Hum.rec.anlog [Lantus Solostar] 17 unit SQ HS #1 insuln.pen Insulin Lispro [Humalog Kwikpen U-100] 4 unit SQ ACHS #1 insuln.pen Lisinopril [Zestril] 40 mg PO DAILY #30 tab MetFORMIN [glucoPHAGE] 1,000 mg PO BIDWM #60 tab Metoclopramide [Reglan] 10 mg PO ACTID #21 tab Metoclopramide [Reglan] 10 mg IVP TID #30 vial Omeprazole 20 mg PO DAILY #30 capsule.dr - Follow Up Plan Condition: FAIR Disposition: HOME/ ROUTINE Instructions: Gastroparesis (Delayed Gastric Emptying) (DC) Additional Instructions: Please follow up with Dr. Larson at [address] [place] [address] in 3-5 days.
[2017-07-07 16:07] VITALS: BP 142/92; PULSE 93; RESP 20; TEMP 98.7
[2017-07-08] MEDS ORDERED: Pantoprazole 40 mg EC Tab PO SCH (09:00)
== END 2017-07-07 18:09 | disposition home or self-care (01) | DRG 18 ==
LOC: H.ER 17:07 → H.ERHOLD 07-06 02:54 → H.TEL 07-06 04:18
PROVIDERS: ADMIT Family Medicine Geriatric Medicine; ATTEND Family Medicine Geriatric Medicine
DX: E11.43 Type 2 diabetes mellitus with diabetic autonomic (poly)neuropathy (principal); E87.6 Hypokalemia; R56.9 Unspecified convulsions; E86.0 Dehydration; E78.00 Pure hypercholesterolemia, unspecified; I10 Essential (primary) hypertension; J45.909 Unspecified asthma, uncomplicated; K20.9 Esophagitis, unspecified; K31.84 Gastroparesis; Z79.4 Long term (current) use of insulin; Z79.82 Long term (current) use of aspirin; M19.90 Unspecified osteoarthritis, unspecified site; Z79.84 Long term (current) use of oral hypoglycemic drugs; Z79.899 Other long term (current) drug therapy; R00.0 Tachycardia, unspecified; E11.42 Type 2 diabetes mellitus with diabetic polyneuropathy; Z88.0 Allergy status to penicillin; Z91.018 Allergy to other foods

== ENCOUNTER 2017-08-05 07:40 | Emergency (ER) | payer OTHER ==
[2017-08-05 07:45] VITALS: BMI 24.3
[2017-08-05 07:47] VITALS: TEMP 98; O2SAT 99
[2017-08-05] MEDS ORDERED: Sodium Chloride 0.9% 1,000 ML IV STA (08:03)
--- NOTE | 2017-08-05 08:06 | ED PDOC ---
HPI: Abdomen Time Seen by Provider: 08/05/17 07:59 Chief Complaint (Nursing): GI Problem History Per: Patient Onset/Duration Of Symptoms: Days (2) Current Symptoms Are (Timing): Still Present Severity: Moderate Pain Scale Rating Of: 2 Location Of Pain/Discomfort: Epigastric Quality Of Discomfort: Unable To Describe Associated Symptoms: Nausea, Vomiting. denies: Fever, Diarrhea Exacerbating Factors: None Alleviating Factors: None Additional Complaint(s): [place] nd vomiting since last night assoc with mild epigastric pain. Denies diarrhea or fever. No blood in stool or vomitus Past Medical History Vital Signs: Last Vital Signs Temp 98 F 08/05/17 07:45 Pulse 96 H 08/05/17 07:45 Resp 20 08/05/17 07:45 BP 197/100 H 08/05/17 07:45 Pulse Ox 99 08/05/17 08:05 - Medical History PMH: Arthritis, Asthma, Diabetes (IDDM), Gastritis (H Pylori), HTN, Hypercholesterolemia Denies: Atrial Fibrillation, CHF, HIV, Peripheral Edema, Chronic Kidney Disease - Surgical History Surgical History: Endoscopy - Family History Family History: States: Unknown Family Hx, Diabetes, Hypertension - Home Medications Home Medications: Ambulatory Orders Medication Instructions Recorded Aspirin [Ecotrin] 81 mg PO DAILY #30 tabec 07/07/17 Atorvastatin [Lipitor] 10 mg PO DAILY #30 tab 07/07/17 Docusate Sodium/Sennosides A 2 tab PO HS #10 tab 07/07/17 [Senokot S 50 MG-8.6 MG] Famotidine 10 mg PO DAILY PRN #30 tablet 07/07/17 Gabapentin [Neurontin] 600 mg PO HS #30 tab 07/07/17 Insulin Glargine,Hum.rec.anlog 17 unit SQ HS #1 insuln.pen 07/07/17 [Lantus Solostar] Insulin Lispro [Humalog Kwikpen 4 unit SQ ACHS #1 insuln.pen 07/07/17 U-100] Lisinopril [Zestril] 40 mg PO DAILY #30 tab 07/07/17 MetFORMIN [glucoPHAGE] 1,000 mg PO BIDWM #60 tab 07/07/17 Metoclopramide [Reglan] 10 mg IVP TID #30 vial 07/07/17 Metoclopramide [Reglan] 10 mg PO ACTID #21 tab 07/07/17 Omeprazole 20 mg PO DAILY #30 capsule. 07/07/17 amLODIPine [Norvasc] 5 mg PO DAILY #30 tab 07/07/17 Famotidine [Pepcid] 20 mg PO Q12 #20 tab 08/05/17 Ondansetron [Zofran] 4 mg PO Q8H #10 tab 08/05/17 - Allergies Allergies/Adverse Reactions: Allergies Allergy/AdvReac Type Severity Reaction Status Date / Time Penicillins Allergy RASH Verified 03/05/17 08:33 strawberry Allergy RASH Verified 03/05/17 08:33 Review of Systems ROS Statement: Except As Marked, All Systems Reviewed And Found Negative Constitutional: Negative for: Fever Gastrointestinal: Positive for: Nausea, Vomiting, Abdominal Pain. Negative for : Melena, Hematochezia, Hematemesis Physical Exam - Reviewed Nursing Documentation Reviewed: Yes Vital Signs Reviewed: Yes - Physical Exam Appears: Positive for: Non-toxic, No Acute Distress Head Exam: Positive for: ATRAUMATIC, NORMAL INSPECTION, NORMOCEPHALIC Skin: Positive for: Normal Color, Warm, DRY Eye Exam: Positive for: EOMI, Normal appearance, PERRL ENT: Positive for: Normal ENT Inspection Neck: Positive for: Normal, Painless ROM Cardiovascular/Chest: Positive for: Regular Rate, Rhythm Respiratory: Positive for: CNT, Normal Breath Sounds Gastrointestinal/Abdominal: Positive for: Normal Exam, Soft. Negative for: Tenderness Back: Positive for: Normal Inspection Extremity: Positive for: Normal ROM Neurologic/Psych: Positive for: Alert, Oriented - Laboratory Results Result Diagrams: 08/05/17 08:30 08/05/17 08:30 - ECG O2 Sat by Pulse Oximetry: 99 - Progress Re-evaluation Time: 10:03 Condition: Improved Disposition - Clinical Impression Clinical Impression: Gastritis - Patient ED Disposition Is Patient to be Admitted: No Counseled Patient/Family Regarding: Studies Performed, Diagnosis, Need For Followup, Rx Given - Disposition [facility]errals: [facility] Disposition: Routine/Home Disposition Time: 10:04 Condition: FAIR Prescriptions: Famotidine [Pepcid] 20 mg PO Q12 #20 tab Ondansetron [Zofran] 4 mg PO Q8H #10 tab Instructions: Gastritis Forms: [employer] (Kyrgyz)
[2017-08-05] MEDS ORDERED: Famotidine 20mg/50ml 20 MG/50 ML BAG IVPB STA (08:07)
[2017-08-05] MEDS ORDERED: Famotidine 20mg/50ml 20 MG/50 ML BAG IVPB ONE (08:18)
[2017-08-05 08:47] LABS: BASO % 0.1 % (0.0-2.0); EOS % 0.2 % (0.0-4.0); HEMOGLOBIN 14.1 g/dL (12.0-18.0); LYMPH # 0.7 K/uL (1.0-4.3); MEAN CELL VOLUME 86.8 fl (80.0-94.0); MEAN CORPUSCULAR HGB CONC 34.6 g/dL (33.0-37.0); MEAN PLATELET VOLUME 7.8 fl (7.2-11.7); MONO # 0.9 K/uL (0.0-0.8); MONO % 6.5 % (0.0-10.0); NEUT # 12.2 K/uL (1.8-7.0); NEUT % 88.2 % (50.0-75.0); NRBC % 0.1 % (0.0-0.0); PLATELET COUNT 254 K/uL (130-400); RBC 4.69 Mil/uL (4.40-5.90); RED CELL DISTRIBUTION WIDTH 13.2 % (11.5-14.5); WHITE BLOOD COUNT 13.8 K/uL (4.8-10.8)
[2017-08-05 09:14] LABS: ALB/GLOB RATIO 1.4 (1.0-2.1); ALBUMIN 5.1 g/dL (3.5-5.0); ALT/SGPT 33 U/L (21-72); AST/SGOT 23 U/L (17-59); BLOOD UREA NITROGEN 18 mg/dl (9-20); CALCIUM 10.7 mg/dL (8.4-10.2); GFR AFRICAN-AMERICAN > 60; GFR NON-AFRICAN AMERICAN > 60; LIPASE 64 U/L (23-300)
[2017-08-05 09:45] LABS: LYMPHOCYTE 8 % (20-50); MONOCYTE 5 % (0-10); NEUTROPHIL 87 % (42-75); PLATELET ESTIMATE NORMAL (NORMAL); TOTAL CELLS COUNTED 100
[2017-08-05 09:46] LABS: ANISOCYTOSIS SLIGHT; LARGE PLATELETS PRESENT; OVALOCYTES SLIGHT
[2017-08-05 10:16] VITALS: BP 154/89; PULSE 87; RESP 17
== END 2017-08-05 10:28 | disposition home or self-care (01) ==
LOC: H.ER 07:40
DX: K29.70 Gastritis, unspecified, without bleeding (principal); E11.9 Type 2 diabetes mellitus without complications; E78.00 Pure hypercholesterolemia, unspecified; I10 Essential (primary) hypertension; J45.909 Unspecified asthma, uncomplicated; Z79.4 Long term (current) use of insulin; Z79.82 Long term (current) use of aspirin; Z88.0 Allergy status to penicillin
CPT/HCPCS: 80053; 82948; 83690; 85025; 96361; 96365; 99284; J7040

== ENCOUNTER 2017-08-06 18:30 | Emergency (ER) | payer OTHER ==
[2017-08-06 18:30] VITALS: BMI 24.3
[2017-08-06 18:59] VITALS: RESP 18; TEMP 98.2
[2017-08-06] MEDS ORDERED: Sodium Chloride 0.9% 1,000 ML IV STA (19:59)
[2017-08-06 20:45] LABS: BASO % 0.2 % (0.0-2.0); EOS % 0.2 % (0.0-4.0); LYMPH # 1.4 K/uL (1.0-4.3); LYMPH % 8.9 % (20.0-40.0); MEAN CELL VOLUME 86.8 fl (80.0-94.0); MEAN CORPUSCULAR HEMOGLOBIN 30.1 pg (27.0-31.0); MEAN CORPUSCULAR HGB CONC 34.6 g/dL (33.0-37.0); MEAN PLATELET VOLUME 8.3 fl (7.2-11.7); MONO # 0.9 K/uL (0.0-0.8); MONO % 6.2 % (0.0-10.0); NEUT # 12.8 K/uL (1.8-7.0); NEUT % 84.5 % (50.0-75.0); NRBC % 0.1 % (0.0-0.0); RED CELL DISTRIBUTION WIDTH 13.1 % (11.5-14.5); WHITE BLOOD COUNT 15.2 K/uL (4.8-10.8)
[2017-08-06 20:58] LABS: ALB/GLOB RATIO 1.2 (1.0-2.1); ALBUMIN 4.7 g/dL (3.5-5.0); ALT/SGPT 27 U/L (21-72); AST/SGOT 44 U/L (17-59); BLOOD UREA NITROGEN 21 mg/dl (9-20); GFR AFRICAN-AMERICAN > 60; GFR NON-AFRICAN AMERICAN > 60; LIPASE 269 U/L (23-300)
[2017-08-06] MEDS ORDERED: Famotidine 20mg/50ml 20 MG/50 ML BAG IVPB ONE (21:07)
--- NOTE | 2017-08-06 21:23 | ED PDOC ---
HPI: Abdomen Time Seen by Provider: 08/06/17 18:40 Chief Complaint (Nursing): GI Problem Chief Complaint (Provider): GI Problem History Per: Patient History/Exam Limitations: no limitations Onset/Duration Of Symptoms: Other (prior to arrival) Current Symptoms Are (Timing): Still Present Additional Complaint(s): 51 y/o male with a pmhx of gastritis presenting for evaluation of gastritis exacerbation prior to arrival. Patient is well known to ER. Patient states his gastritis is acting up and he wants to stay in the hospital. Patient was seen yesterday by Dr. Hamilton and discharged with a diagnosis of gastritis. Patient reports he vomited prior to arrival. Denies fever, abdominal pain, and diarrhea. PMD: Audrey Larson Past Medical History Reviewed: Historical Data, Nursing Documentation, Vital Signs Vital Signs: Last Vital Signs Temp 98.2 F 08/06/17 18:56 Pulse 89 08/07/17 05:37 Resp 18 08/07/17 05:37 BP 162/97 H 08/07/17 05:37 Pulse Ox 95 08/07/17 05:37 - Medical History PMH: Arthritis, Asthma, Diabetes (IDDM), Gastritis (H Pylori), HTN, Hypercholesterolemia Denies: Atrial Fibrillation, CHF, HIV, Peripheral Edema, Chronic Kidney Disease - Surgical History Surgical History: Endoscopy - Family History Family History: States: Unknown Family Hx, Diabetes, Hypertension - Home Medications Home Medications: Ambulatory Orders Medication Instructions Recorded Aspirin [Ecotrin] 81 mg PO DAILY #30 tabec 07/07/17 Atorvastatin [Lipitor] 10 mg PO DAILY #30 tab 07/07/17 Docusate Sodium/Sennosides A 2 tab PO HS #10 tab 07/07/17 [Senokot S 50 MG-8.6 MG] Famotidine 10 mg PO DAILY PRN #30 tablet 07/07/17 Gabapentin [Neurontin] 600 mg PO HS #30 tab 07/07/17 Insulin Glargine,Hum.rec.anlog 17 unit SQ HS #1 insuln.pen 07/07/17 [Lantus Solostar] Insulin Lispro [Humalog Kwikpen 4 unit SQ ACHS #1 insuln.pen 07/07/17 U-100] Lisinopril [Zestril] 40 mg PO DAILY #30 tab 07/07/17 MetFORMIN [glucoPHAGE] 1,000 mg PO BIDWM #60 tab 07/07/17 Metoclopramide [Reglan] 10 mg IVP TID #30 vial 07/07/17 Metoclopramide [Reglan] 10 mg PO ACTID #21 tab 07/07/17 Omeprazole 20 mg PO DAILY #30 capsule. 07/07/17 amLODIPine [Norvasc] 5 mg PO DAILY #30 tab 07/07/17 Famotidine [Pepcid] 20 mg PO Q12 #20 tab 08/05/17 Ondansetron [Zofran] 4 mg PO Q8H #10 tab 08/05/17 Esomeprazole Magnesium [Nexium] 20 mg PO QAM #30 ecc 08/07/17 - Allergies Allergies/Adverse Reactions: Allergies Allergy/AdvReac Type Severity Reaction Status Date / Time Penicillins Allergy RASH Verified 03/05/17 08:33 strawberry Allergy RASH Verified 03/05/17 08:33 Review of Systems ROS Statement: Except As Marked, All Systems Reviewed And Found Negative Constitutional: Negative for: Fever Gastrointestinal: Positive for: Vomiting. Negative for: Abdominal Pain, Diarrhea Physical Exam - Reviewed Nursing Documentation Reviewed: Yes Vital Signs Reviewed: Yes - Physical Exam Appears: Positive for: Non-toxic, No Acute Distress Head Exam: Positive for: ATRAUMATIC, NORMAL INSPECTION, NORMOCEPHALIC Skin: Positive for: Normal Color, Warm, Dry. Negative for: Rash Eye Exam: Positive for: EOMI, Normal appearance, PERRL Neck: Positive for: Normal, Painless ROM, Supple Cardiovascular/Chest: Positive for: Regular Rate, Rhythm. Negative for: Murmur Respiratory: Positive for: Normal Breath Sounds. Negative for: Respiratory Distress Gastrointestinal/Abdominal: Positive for: Normal Exam, Soft. Negative for: Tenderness Back: Positive for: Normal Inspection. Negative for: L CVA Tenderness, R CVA Tenderness, Vertebral Tenderness Extremity: Positive for: Normal ROM. Negative for: Pedal Edema, Deformity Neurologic/Psych: Positive for: Alert, Oriented. Negative for: Motor/Sensory Deficits - Laboratory Results Result Diagrams: 08/06/17 20:30 08/06/17 20:30 Medical Decision Making Medical Decision Making: Initial Impression: Gastritis Plan: --CMP --Lipase --CBC --1LNS --Pepcid 20mg IVP --Reevaluation 23:13 pts wbc is elevated, pt continues to feel sick and so will do a CT. Patient was informed of results and the need for CT scan. 2350 pt vomited the contrast, will order more zofran 00:[address] Ha. Pending CT scan. Scribe Attestation: Documented by Jewel Sanchez and Fuad Rodriguez, acting as a scribe for Gilbert Duke MD. Scribe Attestation: All medical record entries made by the Scribe were at my direction and personally dictated by me. I have reviewed the chart and agree that the record accurately reflects my personal performance of the history, physical exam, medical decision making, and the department course for this patient. I have also personally directed, reviewed, and agree with the discharge instructions and disposition. Disposition - Clinical Impression Clinical Impression: Gastritis - Patient ED Disposition Is Patient to be Admitted: Transfer of Care - Disposition Disposition: Transfer of Care Disposition Time: 00:00 Condition: STABLE Prescriptions: Esomeprazole Magnesium [Nexium] 20 mg PO QAM #30 ecc Instructions: Gastritis Forms: [employer] (Australian) Patient Signed Over To: Gregory Ha
[2017-08-06] MEDS ORDERED: Iohexol 240 (50 ml) PO ONE (22:31)
[2017-08-06] MEDS ORDERED: Iohexol 240 (50 ml) ONE (23:10)
--- NOTE | 2017-08-07 00:49 | ED PDOC ---
- Laboratory Results Result Diagrams: 08/06/17 20:30 08/06/17 20:30 Medical Decision Making Medical Decision Makin:00 Patient endorsed to me from Dr. Duke. Pending CT and reevaluation. 03:15 CT abd/pelvis FINDINGS: Limitations: Motion artifact - mild. Lung bases: No acute findings. Mediastinum: Small hiatal hernia. Apparent mild mural thickening of distal esophagus. Mild stranding/fluid about distal esophagus. ABDOMEN: Liver: Fatty infiltration. Gallbladder and bile ducts: No calcified stones. No ductal dilation. Pancreas: No ductal dilation. No mass. Spleen: No splenomegaly. Adrenals: No mass. Kidneys and ureters: Too small to characterize lesion within RIGHT kidney. No hydronephrosis. Stomach and bowel: Mild mural thickening versus underdistention of stomach. No associated inflammatory stranding. Few scattered diverticula within colon. No associated inflammatory stranding. No definite bowel wall thickening. No obstruction. PELVIS: Appendix: Normal caliber. No inflammation. Bladder: Unremarkable. Reproductive: Enlarged prostate gland. ABDOMEN and PELVIS: Intraperitoneal space: No significant fluid collection. No free air. Bones/joints: Early degenerative changes of spine. No acute fracture. Soft tissues: Unremarkable. Vasculature: Minimal atherosclerotic disease. No aneurysm. Lymph nodes: No pathologically enlarged lymph nodes. IMPRESSION: 1. Probable esophagitis/possible gastritis. Clinical correlation is needed. 2. Prostate enlargement. Followup as clinically warranted. 3. Incidental/non-acute findings are described above. 4:20 Upon reevaluation, improvement of symptoms was noted. Patient is stable for discharge and diagnosed with gastritis Scribe Attestation: Documented by Fuad Rodriguez acting as a scribe for Gregory Ha MD. Provider Scribe Attestation: All medical record entries made by the Scribe were at my direction and personally dictated by me. I have reviewed the chart and agree that the record accurately reflects my personal performance of the history, physical exam, medical decision making, and the department course for this patient. I have also personally directed, reviewed, and agree with the discharge instructions and disposition. Disposition - Clinical Impression Clinical Impression: Gastritis - POA Present On Arrival: None - Disposition Disposition: Routine/Home Disposition Time: 05:00 Condition: STABLE Prescriptions: Esomeprazole Magnesium [Nexium] 20 mg PO QAM #30 ecc Instructions: Gastritis Forms: [employer] (Ukrainian)
[2017-08-07] MEDS ORDERED: Iohexol 300 100 ML IJ ONE (01:50)
[2017-08-07] MEDS ORDERED: Sodium Chloride 0.9% 50 ML IV ONE (01:50)
--- NOTE | 2017-08-07 03:16 | CT ---
EXAM: CT Abdomen and Pelvis With Intravenous Contrast CLINICAL HISTORY: 51 years old, male; Signs and symptoms; Vomiting; Patient HX: Poor historian TECHNIQUE: Axial computed tomography images of the abdomen and pelvis with intravenous contrast. All CT scans at this facility use one or more dose reduction techniques, viz.: automated exposure control; ma/kV adjustment per patient size (including targeted exams where dose is matched to indication; i.e. head); or iterative reconstruction technique. Coronal and sagittal reformatted images were created and reviewed. CONTRAST: 90 mL of [id number] administered intravenously. COMPARISON: CT - ABD PELVIS W/O PO OR IV CONT 2017-07-05 20:52 FINDINGS: Limitations: Motion artifact - mild. Lung bases: No acute findings. Mediastinum: Small hiatal hernia. Apparent mild mural thickening of distal esophagus. Mild stranding/fluid about distal esophagus. ABDOMEN: Liver: Fatty infiltration. Gallbladder and bile ducts: No calcified stones. No ductal dilation. Pancreas: No ductal dilation. No mass. Spleen: No splenomegaly. Adrenals: No mass. Kidneys and ureters: Too small to characterize lesion within RIGHT kidney. No hydronephrosis. Stomach and bowel: Mild mural thickening versus underdistention of stomach. No associated inflammatory stranding. Few scattered diverticula within colon. No associated inflammatory stranding. No definite bowel wall thickening. No obstruction. PELVIS: Appendix: Normal caliber. No inflammation. Bladder: Unremarkable. Reproductive: Enlarged prostate gland. ABDOMEN and PELVIS: Intraperitoneal space: No significant fluid collection. No free air. Bones/joints: Early degenerative changes of spine. No acute fracture. Soft tissues: Unremarkable. Vasculature: Minimal atherosclerotic disease. No aneurysm. Lymph nodes: No pathologically enlarged lymph nodes. IMPRESSION: 1. Probable esophagitis/possible gastritis. Clinical correlation is needed. 2. Prostate enlargement. Followup as clinically warranted. 3. Incidental/non-acute findings are described above.
[2017-08-07 05:38] VITALS: BP 162/97; PULSE 89; O2SAT 95
== END 2017-08-07 05:38 | disposition home or self-care (01) ==
LOC: H.ER 18:30
DX: K29.70 Gastritis, unspecified, without bleeding (principal); N40.0 Benign prostatic hyperplasia without lower urinary tract symptoms; E11.9 Type 2 diabetes mellitus without complications; E78.00 Pure hypercholesterolemia, unspecified; I10 Essential (primary) hypertension; J45.909 Unspecified asthma, uncomplicated; Z79.4 Long term (current) use of insulin; Z79.82 Long term (current) use of aspirin; Z88.0 Allergy status to penicillin
CPT/HCPCS: 74177; 80053; 83690; 85025; 96361; 96374; 96375; 99283; J2765; J7040; Q9966; Q9967

== ENCOUNTER 2017-10-24 23:27 | Observation (INO) | payer OTHER ==
[2017-10-24 23:27] VITALS: BMI 24.3
[2017-10-25] MEDS ORDERED: Sodium Chloride 0.9% 1,000 ML IV STA ×2 (00:56→04:02)
--- NOTE | 2017-10-25 01:07 | ED PDOC ---
HPI:Nausea, Vomiting, Diarrhea Time Seen by Provider: 10/25/17 00:40 Chief Complaint (Nursing): Abdominal Pain Chief Complaint (Provider): Vomiting History Per: Patient History/Exam Limitations: no limitations Onset/Duration Of Symptoms: Days (x1) Current Symptoms Are (Timing): Still Present Associated Symptoms: Vomiting, Diarrhea Additional Complaint(s): Alexis Lyon is a 52 year old male, with a past medical history of diabetes and diabetic gastroparesis, who presents to the emergency department complaining of multiple episodes of vomiting onset since yesterday. Patient states he has vomited more than x20 times and describes vomit as bilious with some streaks of blood. Patient also reports some diarrhea and states symptoms are consistent with previous episodes of gastroparesis. He denies any abdominal pain or other medical complaints. PMD: Audrey Larson Past Medical History Reviewed: Historical Data, Nursing Documentation, Vital Signs Vital Signs: Last Vital Signs Temp 97.9 F 10/25/17 00:12 Pulse 58 L 10/25/17 00:12 Resp 18 10/25/17 00:12 BP 178/88 H 10/25/17 00:12 Pulse Ox 98 10/25/17 00:12 - Medical History PMH: Arthritis, Asthma, Diabetes (IDDM), Gastritis (H Pylori), HTN, Hypercholesterolemia Denies: Atrial Fibrillation, CHF, HIV, Peripheral Edema, Chronic Kidney Disease - Surgical History Surgical History: Endoscopy - Family History Family History: States: Unknown Family Hx, Diabetes, Hypertension - Social History Current smoker - smoking cessation education provided: No Alcohol: None Drugs: Denies - Home Medications Home Medications: Ambulatory Orders Medication Instructions Recorded Aspirin [Ecotrin] 81 mg PO DAILY #30 tabec 07/07/17 Atorvastatin [Lipitor] 10 mg PO DAILY #30 tab 07/07/17 Docusate Sodium/Sennosides A 2 tab PO HS #10 tab 07/07/17 [Senokot S 50 MG-8.6 MG] Famotidine 10 mg PO DAILY PRN #30 tablet 07/07/17 Gabapentin [Neurontin] 600 mg PO HS #30 tab 07/07/17 Insulin Glargine,Hum.rec.anlog 17 unit SQ HS #1 insuln.pen 07/07/17 [Lantus Solostar] Insulin Lispro [Humalog Kwikpen 4 unit SQ ACHS #1 insuln.pen 07/07/17 U-100] Lisinopril [Zestril] 40 mg PO DAILY #30 tab 07/07/17 MetFORMIN [glucoPHAGE] 1,000 mg PO BIDWM #60 tab 07/07/17 Metoclopramide [Reglan] 10 mg IVP TID #30 vial 07/07/17 Metoclopramide [Reglan] 10 mg PO ACTID #21 tab 07/07/17 Omeprazole 20 mg PO DAILY #30 capsule.dr 07/07/17 amLODIPine [Norvasc] 5 mg PO DAILY #30 tab 07/07/17 Famotidine [Pepcid] 20 mg PO Q12 #20 tab 08/05/17 Ondansetron [Zofran] 4 mg PO Q8H #10 tab 08/05/17 Esomeprazole Magnesium [Nexium] 20 mg PO QAM #30 ecc 08/07/17 - Allergies Allergies/Adverse Reactions: Allergies Allergy/AdvReac Type Severity Reaction Status Date / Time Penicillins Allergy SWELLING Verified 10/25/17 00:37 strawberry Allergy SWELLING Verified 10/25/17 00:37 Review of Systems ROS Statement: Except As Marked, All Systems Reviewed And Found Negative Gastrointestinal: Positive for: Nausea, Vomiting, Diarrhea Physical Exam - Reviewed Nursing Documentation Reviewed: Yes Vital Signs Reviewed: Yes - Physical Exam Appears: Positive for: No Acute Distress Head Exam: Positive for: ATRAUMATIC, NORMAL INSPECTION, NORMOCEPHALIC Skin: Positive for: Normal Color, Warm, Dry Eye Exam: Positive for: Normal appearance, EOMI, PERRL ENT: Positive for: Other (Tacky mucous membranes) Neck: Positive for: Painless ROM Cardiovascular/Chest: Positive for: Regular Rate, Rhythm. Negative for: Murmur Respiratory: Positive for: Normal Breath Sounds. Negative for: Respiratory Distress Gastrointestinal/Abdominal: Positive for: Normal Exam, Soft. Negative for: Tenderness Back: Positive for: Normal Inspection Extremity: Positive for: Normal ROM (upper and lower extremities). Negative for : Deformity, Swelling Neurologic/Psych: Positive for: Alert, Oriented. Negative for: Motor/Sensory Deficits - Laboratory Results Result Diagrams: 10/25/17 01:30 10/25/17 01:30 - ECG O2 Sat by Pulse Oximetry: 98 (RA) Pulse Ox Interpretation: Normal Medical Decision Making Medical Decision Making: Time: 00:40 Initial Impression: 52 y/o male with recurrent vomiting in setting of known gastroparesis Initial Plan: --EKG --Alcohol serum --CMP --Drug screen, urine --Lipase --CBC w/ differential --Sodium Chloride 1,000 ml IV 1,000 mls/hr --Pepcid 20 mg IV --Zofran Inj 4 mg IV --Accucheck --Reevaluation 04:05 -Labs reviewed and showed no clinical significant abnormalities. Patient reports persistent nausea and vomiting, will place on observation. Diagnosis of diabetic gastroparesis and intractable vomiting. Patient referred to [facility] resident emissions technician, Dr. Garland. ----- Scribe Attestation: Documented by Rad Ford, acting as a scribe for Gregory Ha MD. Provider Scribe Attestation: All medical record entries made by the Scribe were at my direction and personally dictated by me. I have reviewed the chart and agree that the record accurately reflects my personal performance of the history, physical exam, medical decision making, and the department course for this patient. I have also personally directed, reviewed, and agree with the discharge instructions and disposition. Disposition - Disposition Disposition Time: 04:05 Condition: FAIR Forms: [id number] (Malay)
[2017-10-25 01:40] LABS: BASO % 0.4 % (0.0-2.0); HEMOGLOBIN 12.7 g/dL (12.0-18.0); LYMPH # 0.6 K/uL (1.0-4.3); LYMPH % 5.7 % (20.0-40.0); MEAN CELL VOLUME 89.6 fl (80.0-94.0); MEAN CORPUSCULAR HEMOGLOBIN 30.7 pg (27.0-31.0); MEAN CORPUSCULAR HGB CONC 34.3 g/dL (33.0-37.0); MEAN PLATELET VOLUME 8.3 fl (7.2-11.7); MONO # 0.2 K/uL (0.0-0.8); MONO % 1.8 % (0.0-10.0); NEUT # 9.2 K/uL (1.8-7.0); NEUT % 92.1 % (50.0-75.0); PLATELET COUNT 228 K/uL (130-400); RBC 4.15 Mil/uL (4.40-5.90); RED CELL DISTRIBUTION WIDTH 13.3 % (11.5-14.5)
[2017-10-25 02:01] LABS: CALCIUM 10.1 mg/dL (8.4-10.2); GFR AFRICAN-AMERICAN > 60; GFR NON-AFRICAN AMERICAN > 60; LIPASE 98 U/L (23-300)
[2017-10-25 02:07] LABS: ALB/GLOB RATIO 1.5 (1.0-2.1); ALBUMIN 5.4 g/dL (3.5-5.0); ALT/SGPT < 6 U/L (21-72); AST/SGOT 54 U/L (17-59); BLOOD UREA NITROGEN 11 mg/dl (9-20)
[2017-10-25 02:11] LABS: BARBITURATES, UR NEGATIVE (NEGATIVE); BENZODIAZEPINES, UR NEGATIVE (NEGATIVE); OPIATES, UR NEGATIVE (NEGATIVE); PHENCYCLIDINE, UR NEGATIVE (NEGATIVE)
[2017-10-25 02:20] LABS: LYMPHOCYTE 3 % (20-50); MONOCYTE 1 % (0-10); NEUTROPHIL 96 % (42-75); PLATELET ESTIMATE NORMAL (NORMAL); TOTAL CELLS COUNTED 100
--- NOTE | 2017-10-25 04:37 | CP.PCM.HP ---
Addendum entered and electronically signed by Jaclyn Fox MD 10/25/17 19 :27: Patient seen and examined at bedside. Reports nausea and vomiting has improved. Denies abdominal pain, SOB, weakness or dizziness. PE: In no acute distress HEENT: atraumatic, normocephalic, EOMI Cardiac: S1 S2 normal, no m/r/g Abd: bowel sounds present, soft ,nontender Ext: full ROM, no edema Neuro: AAO x3, CN II-XII grossly intact A: 52 yr old M admitted for diabetic gastroparesis, improving P: -continue with Reglan PRN, Protonix IV -Will start with clear liquid diet and advance as tolerated Original Note: History of Present Illness - History of Present Illness History of Present Illness: This is 52 y/o male with PMH of IDDM2, HTN, Gastroparesis, and peripheral neuropathy admitted to [facility] for evaluation and treatment of diabetic gastroparesis. As per patient, he started vomiting 1 day prior to the admission , reports non-bilious, yellowish vomiting with occasional streak of blood with it. Patient has vomited 10-15 times so far in 24 hours associated with heavy stomach and significantly decreased appetite. Patient vomited in the ER for few times. Patient also reports 5x diarrhea, non-bloody, with loose stool. Patient denies any dizziness, palpitations, blurred vision, SOB, chest pain, abdominal pain or urinary symptoms. PMD: Larson PMHx: IDDM2, HTN, Gastroparesis, peripheral neuropathy Meds: Aspirin 81mg QD, Levemir 17 units SC HS, atorvastatin 10mg QD, Lisinopril 40mg QD, Metformin 1000mg BID, Gabapentin 600mg HS, metoclopramide 10 mg PO TID, zofran 4 mg PO Q6 PRN ALL: pencillin (swelling) Psurghx: none FamilyHx: Mother with DMII and seizures, Father with DMII and HTN SocialHx: denies ETOH/Tobacco/drug abuse Next of Kin: Fannie Cevallos [phone] Code Status: full code ROS: As per HPI ER Course: VS: 97.9 tm, HR 58, BP 178/88, Spo2 98 CBC: 10.0, 12.7/37.3, 228 CMP: significant for only high random glucose 243, Tbili 1.4 Lipase wnl 98 Urine Drugs: Positive for marijuana S/p 2L IV Boluses, Pepcid 20 mg IV, Zofran Inj 4 mg IV, Reglan 10mg IV EKG: NSR with sinus arrhythmia Present on Admission - Present on Admission Any Indicators Present on Admission: No Past Patient History - Infectious Disease Hx of Infectious Diseases: None - Past Medical History & Family History Past Medical History?: Yes - Past Social History Alcohol: None Drugs: Denies - CARDIAC Hx Atrial Fibrillation: No Hx Congestive Heart Failure: No Hx Hypercholesterolemia: Yes Hx Hypertension: Yes Hx Peripheral Edema: No - PULMONARY Hx Asthma: Yes - NEUROLOGICAL Hx Neurological Disorder: No - HEENT Hx HEENT Problems: No - RENAL Hx Chronic Kidney Disease: No - ENDOCRINE/METABOLIC Hx Endocrine Disorders: Yes Hx Diabetes Mellitus Type 2: Yes - HEMATOLOGICAL/ONCOLOGICAL Hx Human Immunodeficiency Virus (HIV): No - INTEGUMENTARY Hx Dermatological Problems: No - MUSCULOSKELETAL/RHEUMATOLOGICAL Hx Arthritis: Yes - GASTROINTESTINAL Hx Gastritis: Yes (H Pylori) - GENITOURINARY/GYNECOLOGICAL Hx Genitourinary Disorders: No - PSYCHIATRIC Hx Psychophysiologic Disorder: No Hx Emotional Abuse: No Hx Physical Abuse: No Hx Substance Use: No - SURGICAL HISTORY Hx Surgeries: Yes - ANESTHESIA Hx Anesthesia: No Meds Allergies/Adverse Reactions: Allergies Allergy/AdvReac Type Severity Reaction Status Date / Time Penicillins Allergy SWELLING Verified 10/25/17 00:37 strawberry Allergy SWELLING Verified 10/25/17 00:37 Physical Exam - Constitutional Appears: No Acute Distress - Head Exam Head Exam: NORMAL INSPECTION - Eye Exam Eye Exam: Normal appearance Pupil Exam: NORMAL ACCOMODATION - ENT Exam ENT Exam: Mucous Membranes Moist - Respiratory Exam Respiratory Exam: Clear to Auscultation Bilateral, NORMAL BREATHING PATTERN. absent: Accessory Muscle Use, Chest Wall Tenderness, Decreased Breath Sounds, Rhonchi, Wheezes, Respiratory Distress - Cardiovascular Exam Cardiovascular Exam: REGULAR RHYTHM, +S1, +S2 - GI/Abdominal Exam GI & Abdominal Exam: Normal Bowel Sounds, Soft. absent: Distended, Guarding, Hernia, Organomegaly, Rebound, Tenderness - Extremities Exam Extremities exam: Positive for: normal capillary refill, normal inspection, pedal pulses present. Negative for: pedal edema, tenderness - Back Exam Back exam: absent: CVA tenderness (L), CVA tenderness (R) - Neurological Exam Neurological exam: Alert, CN II-XII Intact, Oriented x3 - Psychiatric Exam Psychiatric exam: Normal Affect - Skin Skin Exam: Normal Color Results - Vital Signs Recent Vital Signs: Last Vital Signs Temp 97.9 F 10/25/17 00:12 Pulse 58 L 10/25/17 00:12 Resp 18 10/25/17 00:12 BP 178/88 H 10/25/17 00:12 Pulse Ox 98 10/25/17 04:09 - Labs Result Diagrams: 10/25/17 01:30 10/25/17 01:30 Labs: Laboratory Results - last 24 hr 10/25/17 10/25/17 10/25/17 01:30 01:30 01:30 WBC 10.0 RBC 4.15 L Hgb 12.7 D Hct 37.2 MCV 89.6 D MCH 30.7 MCHC 34.3 RDW 13.3 Plt Count 228 MPV 8.3 Neut % (Auto) 92.1 H Lymph % (Auto) 5.7 L Mck[place] % (Auto) 1.8 Eos % (Auto) 0.0 Baso % (Auto) 0.4 Neut # (Auto) 9.2 H Lymph # (Auto) 0.6 L [place] # (Auto) 0.2 Eos # (Auto) 0.0 Baso # (Auto) 0.0 Neutrophils % (Manual) 96 H Lymphocytes % (Manual) 3 L Monocytes % (Manual) 1 Platelet Estimate Normal Sodium 143 Potassium 5.0 Chloride 104 Carbon Dioxide 25 Anion Gap 19 BUN 11 Creatinine 0.9 Est GFR ( Amer) > 60 Est GFR (Non-Af Amer) > 60 Random Glucose 243 H Calcium 10.1 Total Bilirubin 1.4 H AST 54 ALT < 6 L D Alkaline Phosphatase 100 Total Protein 9.0 H Albumin 5.4 H Globulin 3.6 Albumin/Globulin Ratio 1.5 Lipase 98 Urine Opiates Screen Negative Urine Methadone Screen Negative Ur Barbiturates Screen Negative Ur Phencyclidine Scrn Negative Ur Amphetamines Screen Negative U Benzodiazepines Scrn Negative U Oth Cocaine Metabols Negative U Cannabinoids Screen Positive H Alcohol, Quantitative < 10 Assessment & Plan - Assessment and Plan (Free Text) Assessment: A/P: 52 y/o male with PMH of IDDM2, HTN, Gastroparesis, and peripheral neuropathy admitted to [facility] for evaluation and treatment of diabetic gastroparesis. Diabetic Gastroparesis - s/p 2L IVF, will continue NS IVF 125mls/hr - C/w Insulin Glargine 17 U SQ HS - Sliding Scale insulin - Hold Metoprolol due to gastroparesis - C/w Reglan 5mg Q6H IV (Could go up to 10mg if not responding) - C/w Protonix 40mg PO daily - Accuchecks ACHS - Hypoglycemic protocol treatment Hypertension - Chronic, Uncontrolled - Continue with home medications: Norvasc 5mg PO daily, Lisinopril 40mg PO daily - C/w ASA 81mg and Lipitor 10mg daily IDDMII - Chronic, uncontrolled - C/w Insulin Glargine 17 U SQ HS - Sliding Scale insulin - Hold Metoprolol due to gastroparesis - Accuchecks ACHS - Hypoglycemic protocol treatment Diabetic peripheral neuropathy - C/w home medication: Gabapentin 600mg PO HS DVT ppx - SCD for now - Questionable hematemesis reported by patient Next of Kin: Fannie Mart [phone] Code Status: full code
[2017-10-25] MEDS ORDERED: Dextrose 5%/0.45% NS 1,000 ML IV SCH (04:45)
[2017-10-25] MEDS ORDERED: Glucagon Recombinant 1 mg Inj IM PRN (05:01)
[2017-10-25] MEDS ORDERED: Dextrose 50% SYRINGE Inj (50 ml) IV PRN (05:01)
[2017-10-25] MEDS ORDERED: INSULIN LISPRO 4 UNIT SQ SCH (07:30)
[2017-10-25] MEDS: Sodium Chloride 0.9% 1,000 ML IV SCH ×4 (07:41→21:30)
--- NOTE | 2017-10-25 09:02 | CARD ---
APPROVED REPORT Date of service: 10/25/2017 EKG Measurement Heart [id number] <Conclusion> Normal sinus rhythm with sinus arrhythmia Moderate voltage criteria for LVH, may be normal variant prolonged QT abnormal ecg
[2017-10-25] MEDS ORDERED: Enoxaparin 40 mg Syringe SC SCH (11:00)
[2017-10-25] MEDS: Insulin Lispro (humaLOG) 100 Units/ml Inj SC SCH ×4 (12:25→23:03)
[2017-10-25] MEDS: Pantoprazole 40 mg EC Tab PO SCH (13:14)
[2017-10-25] MEDS ORDERED: Labetalol 5 mg/ml Inj 20ML IVP STA (19:35)
[2017-10-25] MEDS ORDERED: Docusate-Senna 50 mg-8.6 mg Tab PO SCH (22:00)
[2017-10-25] MEDS ORDERED: INSULIN GLARGINE HUM REC ANLOG 17 UNIT SQ SCH (22:00)
[2017-10-25] MEDS: Insulin Detemir 100 Units/ml Inj SC SCH (23:12)
[2017-10-26] MEDS: Sodium Chloride 0.9% 1,000 ML IV SCH (01:28)
[2017-10-26] MEDS: Insulin Lispro (humaLOG) 100 Units/ml Inj SC SCH ×4 (07:07→22:38)
[2017-10-26] MEDS: Pantoprazole 40 mg EC Tab PO SCH (08:55)
[2017-10-26] MEDS ORDERED: Magnesium Hydroxide Susp 30 ml UD PO PRN (09:50)
--- NOTE | 2017-10-26 13:00 | CP.PCM.PN ---
Subjective - Date & Time of Evaluation Date of Evaluation: 10/26/17 Time of Evaluation: 08:15 - Subjective Subjective: Patient seen and examined this morning at bedside. NAD, report few episodes of vomiting overnight and continues to vomit in morning, didn't really tolerated diet last night. Patient is ambulating, no change with UO, reports constipation. Denies any dizziness, chest pain, SOB, abdominal pain, urinary symptoms or weakness. Objective - Vital Signs/Intake and Output Vital Signs (last 24 hours): Temp Pulse Resp BP Pulse Ox 98.1 F 64 19 183/89 H 100 10/26/17 07:56 10/26/17 08:58 10/26/17 07:56 10/26/17 08:58 10/26/17 07:56 Intake and Output: 10/26/17 10/26/17 06:59 18:59 Intake Total 1700 Output Total 800 Balance 900 - Medications Medications: Current Medications Amlodipine Besylate (Norvasc) 10 mg PO DAILY [facility] Last Admin: 10/26/17 08:58 Dose: 10 mg Aspirin (Ecotrin) 81 mg PO DAILY [facility] Last Admin: 10/26/17 08:56 Dose: 81 mg Atorvastatin Calcium (Lipitor) 10 mg PO DAILY [facility] Last Admin: 10/26/17 08:55 Dose: 10 mg Dextrose (Dextrose 50% Inj) 0 ml IV STAT PRN; Protocol PRN Reason: Hypoglycemia Protocol Dextrose (Glutose 15) 0 gm PO ONCE PRN; Protocol PRN Reason: Hypoglycemia Protocol Gabapentin (Neurontin) 600 mg PO [facility] Last Admin: 10/25/17 22:09 Dose: 600 mg Glucagon (Glucagen Diagnostic Kit) 0 mg IM STAT PRN; Protocol PRN Reason: Hypoglycemia Protocol Dextrose/Sodium Chloride (Dextrose 5%-0.45% Ns 500 Ml) 1,000 mls @ 80 mls/hr IV .[id number] [facility] Stop: 10/27/17 12:34 Insulin Detemir (Levemir) 17 units SC [facility] Last Admin: 10/25/17 23:12 Dose: 17 u Insulin Human Lispro (Humalog) 0 units SC [facility] PRN Reason: Protocol Last Admin: 10/26/17 07:07 Dose: Not Given Lisinopril (Zestril) 40 mg PO DAILY [facility] Last Admin: 08/13/18 08:55 Dose: 40 mg Magnesium Hydroxide (Milk Of Magnesia) 15 ml PO QID PRN PRN Reason: Constipation Metoclopramide HCl (Reglan) 5 mg IVP Q6 PRN PRN Reason: Nausea/Vomiting Last Admin: 10/26/17 08:56 Dose: 5 mg Pantoprazole Sodium (Protonix Ec Tab) 40 mg PO DAILY [facility] Last Admin: 10/26/17 08:55 Dose: 40 mg - Labs Labs: 10/25/17 01:30 10/25/17 01:30 - Constitutional Appears: No Acute Distress - Head Exam Head Exam: NORMAL INSPECTION - Eye Exam Eye Exam: Normal appearance, PERRL Pupil Exam: NORMAL ACCOMODATION - ENT Exam ENT Exam: Mucous Membranes Moist - Neck Exam Neck Exam: Normal Inspection - Respiratory Exam Respiratory Exam: Clear to Ausculation Bilateral, NORMAL BREATHING PATTERN - Cardiovascular Exam Cardiovascular Exam: REGULAR RHYTHM, +S1, +S2 - GI/Abdominal Exam GI & Abdominal Exam: Soft, Normal Bowel Sounds. absent: Tenderness, Pulsatile Mass, Rebound - Back Exam Back Exam: NORMAL INSPECTION. absent: CVA tenderness (L), CVA tenderness (R) - Neurological Exam Neurological Exam: Alert, Awake, CN II-XII Intact, Oriented x3 Neuro motor strength exam: Left Upper Extremity: 5, Right Upper Extremity: 5, Left Lower Extremity: 5, Right Lower Extremity: 5 - Psychiatric Exam Psychiatric exam: Normal Affect - Skin Skin Exam: Dry, Intact, Normal Color, Warm Assessment and Plan - Assessment and Plan (Free Text) Assessment: A/P: 52 y/o male with PMH of IDDM2, HTN, Gastroparesis, and peripheral neuropathy admitted to [facility] for evaluation and treatment of diabetic gastroparesis. Diabetic Gastroparesis - C/w Insulin Glargine 17 U SQ HS - Sliding Scale insulin - Hold Metoprolol due to gastroparesis - Accuchecks ACHS - Hypoglycemic protocol treatment - C/w Reglan 5mg Q6H IV (Could go up to 10mg if not responding) - C/w Protonix 40mg PO daily , C/w fluids - Advance diet as needed Hypertension - Chronic, Uncontrolled - Continue with home medications: Lisinopril 40mg PO daily, will change Norvasc 5mg PO daily to 10 mg PO daily for better BP controlled while inpatient - C/w ASA 81mg and Lipitor 10mg daily IDDMII - Chronic, uncontrolled - C/w Insulin Glargine 17 U SQ HS - Sliding Scale insulin - Hold Metoprolol due to gastroparesis - Bartolome TEJADAS - Hypoglycemic protocol treatment Diabetic peripheral neuropathy - C/w home medication: Gabapentin 600mg PO HS Constipation - Milk of Mg+ 15mg PO STAT - Will consider adding Senokot DVT ppx - SCD for now - Questionable hematemesis reported by patient, will consider starting tomorrow Next of Kin: Fannie Mart [phone] Code Status: full code
[2017-10-26] MEDS ORDERED: Magnesium Hydroxide Susp 30 ml UD PO STA (13:05)
[2017-10-26 16:51] VITALS: O2SAT 98
[2017-10-26] MEDS: Insulin Detemir 100 Units/ml Inj SC SCH (22:37)
[2017-10-27 07:04] LABS: ALB/GLOB RATIO 1.4 (1.0-2.1); ALBUMIN 4.3 g/dL (3.5-5.0); ALT/SGPT 32 U/L (21-72); AST/SGOT 29 U/L (17-59); BLOOD UREA NITROGEN 10 mg/dl (9-20); CALCIUM 9.6 mg/dL (8.4-10.2); GFR AFRICAN-AMERICAN > 60; GFR NON-AFRICAN AMERICAN > 60
[2017-10-27 07:53] VITALS: BP 153/86; PULSE 73; RESP 19; TEMP 98.4
[2017-10-27] MEDS: Pantoprazole 40 mg EC Tab PO SCH (08:26)
[2017-10-27] MEDS: Insulin Lispro (humaLOG) 100 Units/ml Inj SC SCH ×2 (08:27→11:57)
[2017-10-27] MEDS ORDERED: Enoxaparin 40 mg Syringe SC SCH (09:30)
--- NOTE | 2017-10-27 11:31 | CP.PCM.DIS ---
Provider - Provider Date of Admission: 10/25/17 04:01 Attending physician: Beverly York MD Primary care physician: Dr. Larson Consults: None Time Spent in preparation of Discharge (in minutes): 40 Diagnosis - Discharge Diagnosis (1) Diabetic gastroparesis Status: Acute (2) Hypertension Status: Chronic (3) Diabetes mellitus type 2 in nonobese Status: Chronic (4) Hypokalemia Status: Acute Hospital Course - Lab Results Lab Results: Most Recent Lab Values WBC 10.0 K/uL (4.8-10.8) 10/25/17 01:30 RBC 4.15 Mil/uL (4.40-5.90) L 10/25/17 01:30 Hgb 12.7 g/dL (12.0-18.0) D 10/25/17 01:30 Hct 37.2 % (35.0-51.0) 10/25/17 01:30 MCV 89.6 fl (80.0-94.0) D 10/25/17 01:30 MCH 30.7 pg (27.0-31.0) 10/25/17 01:30 MCHC 34.3 g/dL (33.0-37.0) 10/25/17 01:30 RDW 13.3 % (11.5-14.5) 10/25/17 01:30 Plt Count 228 K/uL (130-400) 10/25/17 01:30 MPV 8.3 fl (7.2-11.7) 10/25/17 01:30 Neut % (Auto) 92.1 % (50.0-75.0) H 10/25/17 01:30 Lymph % (Auto) 5.7 % (20.0-40.0) L 10/25/17 01:30 [place] % (Auto) 1.8 % (0.0-10.0) 10/25/17 01:30 Eos % (Auto) 0.0 % (0.0-4.0) 10/25/17 01:30 Baso % (Auto) 0.4 % (0.0-2.0) 10/25/17 01:30 Neut # (Auto) 9.2 K/uL (1.8-7.0) H 10/25/17 01:30 Lymph # (Auto) 0.6 K/uL (1.0-4.3) L 10/25/17 01:30 [place] # (Auto) 0.2 K/uL (0.0-0.8) 10/25/17 01:30 Eos # (Auto) 0.0 K/uL (0.0-0.7) 10/25/17 01:30 Baso # (Auto) 0.0 K/uL (0.0-0.2) 10/25/17 01:30 Neutrophils % (Manual) 96 % (42-75) H 10/25/17 01:30 Lymphocytes % (Manual) 3 % (20-50) L 10/25/17 01:30 Monocytes % (Manual) 1 % (0-10) 10/25/17 01:30 Platelet Estimate Normal (NORMAL) 10/25/17 01:30 Sodium 138 mmol/l (132-148) 10/27/17 05:35 Potassium 3.1 MMOL/L (3.6-5.0) L 10/27/17 05:35 Chloride 98 mmol/L (98-107) 10/27/17 05:35 Carbon Dioxide 29 mmol/L (22-30) 10/27/17 05:35 Anion Gap 14 (10-20) 10/27/17 05:35 BUN 10 mg/dl (9-20) 10/27/17 05:35 Creatinine 1.0 mg/dl (0.8-1.5) 10/27/17 05:35 Est GFR ( Amer) > 60 10/27/17 05:35 Est GFR (Non-Af Amer) > 60 10/27/17 05:35 POC Glucose (mg/dL) 156 mg/dL (65-110) H 10/27/17 10:53 Random Glucose 113 mg/dL (75-110) H 10/27/17 05:35 Calcium 9.6 mg/dL (8.4-10.2) 10/27/17 05:35 Total Bilirubin 1.3 mg/dl (0.2-1.3) 10/27/17 05:35 AST 29 U/L (17-59) 10/27/17 05:35 ALT 32 U/L (21-72) 10/27/17 05:35 Alkaline Phosphatase 72 U/L (38-126) 10/27/17 05:35 Total Protein 7.4 G/DL (6.3-8.2) 10/27/17 05:35 Albumin 4.3 g/dL (3.5-5.0) 10/27/17 05:35 Globulin 3.0 gm/dL (2.2-3.9) 10/27/17 05:35 Albumin/Globulin Ratio 1.4 (1.0-2.1) 10/27/17 05:35 Lipase 98 U/L (23-300) 10/25/17 01:30 Urine Opiates Screen Negative (NEGATIVE) 10/25/17 01:30 Urine Methadone Screen Negative (NEGATIVE) 10/25/17 01:30 Ur Barbiturates Screen Negative (NEGATIVE) 10/25/17 01:30 Ur Phencyclidine Scrn Negative (NEGATIVE) 10/25/17 01:30 Ur Amphetamines Screen Negative (NEGATIVE) 10/25/17 01:30 U Benzodiazepines Scrn Negative (NEGATIVE) 10/25/17 01:30 U Oth Cocaine Metabols Negative (NEGATIVE) 10/25/17 01:30 U Cannabinoids Screen Positive (NEGATIVE) H 10/25/17 01:30 Alcohol, Quantitative < 10 mg/dl (0-10) 10/25/17 01:30 - Hospital Course Hospital Course: 52 y/o male with PMH of IDDM2, HTN, Gastroparesis, and peripheral neuropathy admitted to [facility] for evaluation and treatment of diabetic gastroparesis. Patient was started on Reglan 5mg Q6H IV, Metformin was held and continued with home medications. Patient improved, stable, tolerating PO diet and discharged home with instructions to c/w his home medications and follow up with PMD. Patient's Norvasc 5mg changed to 10mg PO daily for better BP control. Home medications: C/w Aspirin 81mg QD, Levemir 17 units SC HS, atorvastatin 10mg QD, Lisinopril 40mg QD, Metformin 1000mg BID, Gabapentin 600mg HS, metoclopramide 10 mg PO TID, zofran 4 mg PO Q6 PRN, and Norvasc 5 mg PO daily New medications: Norvasc 5mg changed to 10mg PO daily for better BP control Discharge Exam - Head Exam Head Exam: NORMAL INSPECTION - Eye Exam Eye Exam: EOMI, Normal appearance, PERRL Pupil Exam: NORMAL ACCOMODATION - ENT Exam ENT Exam: Mucous Membranes Moist - Neck Exam Neck exam: Full Rom - Respiratory Exam Respiratory Exam: Clear to PA & Lateral, NORMAL BREATHING PATTERN. absent: Decreased Breath Sounds, Wheezes, Respiratory Distress - Cardiovascular Exam Cardiovascular Exam: REGULAR RHYTHM, +S1, +S2 - GI/Abdominal Exam GI & Abdominal Exam: Normal Bowel Sounds, Soft. absent: Distended, Hernia, Rebound, Rigid, Tenderness - Extremities Exam Extremities exam: normal inspection, pedal pulses present - Neurological Exam Neurological exam: Alert, CN II-XII Intact, Oriented x3 - Psychiatric Exam Psychiatric exam: Normal Affect - Skin Skin Exam: Dry, Intact, Normal Color, Warm Discharge Plan - Follow Up Plan Condition: FAIR Disposition: HOME/ ROUTINE Instructions: Gastroparesis (Delayed Gastric Emptying) (DC) Additional Instructions: Follow up with Dr. Larson on 11/03/17 at 10:00 am Referrals: [facility] [place] [Outside] Audrey Larson MD [Family Provider] -
[2017-10-27] MEDS ORDERED: Potassium Chloride 20 mEq ER Tab PO STA (11:41)
== END 2017-10-27 15:00 | disposition home or self-care (01) ==
LOC: H.ER 23:27 → H.ERHOLD 10-25 04:01 → H.MEDSURG1 10-25 09:17
PROVIDERS: ADMIT Family Medicine Geriatric Medicine; ATTEND Family Medicine Geriatric Medicine
DX: E11.43 Type 2 diabetes mellitus with diabetic autonomic (poly)neuropathy (principal); K31.84 Gastroparesis; E11.42 Type 2 diabetes mellitus with diabetic polyneuropathy; K29.70 Gastritis, unspecified, without bleeding; E11.65 Type 2 diabetes mellitus with hyperglycemia; Z79.4 Long term (current) use of insulin; I10 Essential (primary) hypertension; E78.00 Pure hypercholesterolemia, unspecified; J45.909 Unspecified asthma, uncomplicated; E87.6 Hypokalemia; K59.00 Constipation, unspecified; Z88.0 Allergy status to penicillin; Z91.018 Allergy to other foods; M19.90 Unspecified osteoarthritis, unspecified site
CPT/HCPCS: 36415; 80053; 80320; 80324; 80345; 80346; 80349; 80353; 80358; 80361; 82948; 83690; 83992; 85025; 93005; 99284; G0378; J1650; J2405; J2765; J7030

== ENCOUNTER 2017-12-06 07:22 | Observation (INO) | payer OTHER ==
[2017-12-06 07:30] VITALS: BMI 22.4
[2017-12-06] MEDS ORDERED: Sodium Chloride 0.9% 1,000 ML IV STA (07:46)
--- NOTE | 2017-12-06 07:54 | ED PDOC ---
HPI: Abdomen Time Seen by Provider: 12/06/17 07:29 Chief Complaint (Nursing): GI Problem Chief Complaint (Provider): vomiting History Per: Patient History/Exam Limitations: no limitations Additional Complaint(s): Alexis Lyon, a 52 year old male with past medical history of gastritis, hypertension and high cholesterol, presents to the emergency department with non -bloody nausea and vomiting onset 2 days ago. Patient states he was here yesterday, and discharged but denies filling his prescription because the pharmacy was closed. He has been to the ER for similar symptoms in the past. Patient denies chest pain, headache, numbness, tingling, new foods or shortness of breath. No further medical complaints. No abd pain, dizziness. Past Medical History Reviewed: Historical Data, Nursing Documentation, Vital Signs Vital Signs: Last Vital Signs Temp 98.1 F 12/06/17 07:38 Pulse 72 12/06/17 07:38 Resp 18 12/06/17 07:38 BP 188/100 H 12/06/17 07:38 Pulse Ox 98 12/06/17 11:31 - Medical History PMH: Arthritis, Asthma, Diabetes (IDDM), Gastritis (H Pylori), HTN, Hypercholesterolemia Denies: Atrial Fibrillation, CHF, HIV, Peripheral Edema, Chronic Kidney Disease - Surgical History Surgical History: Endoscopy - Family History Family History: States: Unknown Family Hx, Diabetes, Hypertension - Home Medications Home Medications: Ambulatory Orders Medication Instructions Recorded Aspirin [Ecotrin] 81 mg PO DAILY #30 tabec 07/07/17 Atorvastatin [Lipitor] 10 mg PO DAILY #30 tab 07/07/17 Docusate Sodium/Sennosides A 2 tab PO HS #10 tab 07/07/17 [Senokot S 50 MG-8.6 MG] Famotidine 10 mg PO DAILY PRN #30 tablet 07/07/17 Gabapentin [Neurontin] 600 mg PO HS #30 tab 07/07/17 Insulin Glargine,Hum.rec.anlog 17 unit SQ HS #1 insuln.pen 07/07/17 [Lantus Solostar] Insulin Lispro [Humalog Kwikpen 4 unit SQ ACHS #1 insuln.pen 07/07/17 U-100] Lisinopril [Zestril] 40 mg PO DAILY #30 tab 07/07/17 MetFORMIN [glucoPHAGE] 1,000 mg PO BIDWM #60 tab 07/07/17 Metoclopramide [Reglan] 10 mg PO ACTID #21 tab 07/07/17 Omeprazole 20 mg PO DAILY #30 capsule. 07/07/17 Famotidine [Pepcid] 20 mg PO Q12 #20 tab 08/05/17 Ondansetron [Zofran Tab] 4 mg PO Q8H #10 tab 08/05/17 Esomeprazole Magnesium [Nexium] 20 mg PO QAM #30 ecc 08/07/17 amLODIPine [Norvasc] 10 mg PO DAILY 30 Days #30 tab 10/27/17 Famotidine [Pepcid] 20 mg PO BID #20 tab 12/05/17 Ondansetron [Zofran Odt] 4 mg PO Q8H PRN #15 odt 12/05/17 - Allergies Allergies/Adverse Reactions: Allergies Allergy/AdvReac Type Severity Reaction Status Date / Time Penicillins Allergy SWELLING Verified 10/25/17 00:37 strawberry Allergy SWELLING Verified 10/25/17 00:37 Review of Systems ROS Statement: Except As Marked, All Systems Reviewed And Found Negative Cardiovascular: Negative for: Chest Pain Respiratory: Negative for: Shortness of Breath Gastrointestinal: Positive for: Nausea, Vomiting (non-bloody) Neurological: Negative for: Numbness, Headache, Other (tingling) Physical Exam - Reviewed Nursing Documentation Reviewed: Yes Vital Signs Reviewed: Yes - Physical Exam Appears: Positive for: Well, Non-toxic, No Acute Distress Head Exam: Positive for: ATRAUMATIC, NORMAL INSPECTION, NORMOCEPHALIC Skin: Positive for: Normal Color, Warm, DRY Eye Exam: Positive for: EOMI, Normal appearance, PERRL ENT: Positive for: Normal ENT Inspection Neck: Positive for: Normal, Painless ROM Cardiovascular/Chest: Positive for: Regular Rate, Rhythm Respiratory: Positive for: Normal Breath Sounds. Negative for: Respiratory Distress Gastrointestinal/Abdominal: Positive for: Normal Exam, Soft. Negative for: Tenderness Back: Positive for: Normal Inspection. Negative for: L CVA Tenderness, R CVA Tenderness Extremity: Positive for: Normal ROM. Negative for: Tenderness Neurologic/Psych: Positive for: Alert, Oriented - Laboratory Results Result Diagrams: 12/06/17 08:19 12/06/17 08:19 Interpretation Of Abn Labs: 3.1 k - ECG O2 Sat by Pulse Oximetry: 98 (RA) Pulse Ox Interpretation: Normal - Progress ED Course And Treament: 1133: Stable. Still nausea and vomit. Will give zofran. Spoke with [facility] resident. Pt. private of Dr. Jacobs. [place]. Medical Decision Making Medical Decision Making: Time: 7:29 Initial Impression: Initial Plan: --CMP --Lipase --CBC w/ differential --Sodium chloride IV --Pepcid 20 mg IVP --Reglan 10 mg IV Scribe Attestation: Documented by Ernestina Agustin, acting as a scribe for Juanito Frey MD. Provider Scribe Attestation: All medical record entries made by the Scribe were at my direction and personally dictated by me. I have reviewed the chart and agree that the record accurately reflects my personal performance of the history, physical exam, medical decision making, and the department course for this patient. I have also personally directed, reviewed, and agree with the discharge instructions and disposition. Disposition - Clinical Impression Clinical Impression: Intractable vomiting, Hypokalemia - Patient ED Disposition Is Patient to be Admitted: Yes Counseled Patient/Family Regarding: Studies Performed, Diagnosis - Disposition Disposition Time: 11:34 Condition: FAIR - Pt Status Changed To: Hospital Disposition Of: Observation - POA Present On Arrival: None
[2017-12-06 08:32] LABS: BASO % 0.2 % (0.0-2.0); HEMOGLOBIN 13.4 g/dL (12.0-18.0); LYMPH # 1.1 K/uL (1.0-4.3); LYMPH % 11.4 % (20.0-40.0); MEAN CELL VOLUME 87.4 fl (80.0-94.0); MEAN CORPUSCULAR HEMOGLOBIN 30.4 pg (27.0-31.0); MEAN CORPUSCULAR HGB CONC 34.7 g/dL (33.0-37.0); MEAN PLATELET VOLUME 7.7 fl (7.2-11.7); MONO # 0.6 K/uL (0.0-0.8); MONO % 5.9 % (0.0-10.0); NEUT # 7.7 K/uL (1.8-7.0); NEUT % 82.5 % (50.0-75.0); RBC 4.4 Mil/uL (4.40-5.90); WHITE BLOOD COUNT 9.3 K/uL (4.8-10.8)
[2017-12-06 08:39] LABS: ALB/GLOB RATIO 1.4 (1.0-2.1); ALBUMIN 4.7 g/dL (3.5-5.0); ALT/SGPT 60 U/L (21-72); AST/SGOT 28 U/L (17-59); BLOOD UREA NITROGEN 17 mg/dl (9-20); GFR NON-AFRICAN AMERICAN > 60; LIPASE 68 U/L (23-300)
[2017-12-06] MEDS ORDERED: Potassium Chloride 20 mEq ER Tab PO STA (10:45)
[2017-12-06] MEDS ORDERED: Potassium Chloride 20 mEq ER Tab PO ONE (11:36)
[2017-12-06] MEDS ORDERED: Glucagon Recombinant 1 mg Inj IM PRN (12:14)
[2017-12-06] MEDS ORDERED: Dextrose 50% SYRINGE Inj (50 ml) IV PRN (12:14)
--- NOTE | 2017-12-06 12:19 | CP.PCM.HP ---
History of Present Illness - History of Present Illness History of Present Illness: 52 year old male with PMH of gastritis, hypertension and high cholesterol, presents to the emergency department with non-bloody nausea and vomiting onset Thursday, 12/05. He reports that he ate a cheeseburger and he began vomiting shortly afterwards. He reports vomiting at least 15 times per day since Thursday. Vomitus is described as dark brown-greenish in color without any blood. He has not been able to tolerate PO intake since Thursday and reports he has not taken any of his medications since then. He states that he was in the E.D yesterday and was discharged with a prescription for medications; he did not fill the prescription because the pharmacy was closed. He reports a history of chronic Nausea and vomiting. Patient denies chest pain, shortness of breath, headache, hematemesis, numbness, tingling, abdominal pain, and urinary issues. ROS: 12 point system reviewed, all negative except for stated above. PMD: Dr. Larson Social: Lives at home with his children. Is not currently working. He denies use of illicit drugs, alcohol and smoking. PMHx: IDDM2- diagnosed in 2005, HTN, Gastroparesis, peripheral neuropathy Meds: see below. ALL: Pencillin (swelling) Psurghx: none FamilyHx: HTN, seizures SocialHx: denies ETOH/Tobacco/drug abuse Next of Kin: Fannie Cevallos [phone] Code Status: full code ED course: --CBC w/ differential: 9.3 > 13.4 / 38.5 < 226 ; Neutrophil predominant: 82.5 % --CMP: 141/ 3.1 ; 96 / 34 ; 17/1.1 < 252 --Lipase : 68. Medications given: 1L bolus of Normal saline IV. Pepcid 20 mg IVP; Reglan 10 mg IV; Potassium 40 meQ PO stat. Present on Admission - Present on Admission Any Indicators Present on Admission: No History of DVT/PE: No History of Uncontrolled Diabetes: Yes Urinary Catheter: No Decubitus Ulcer Present: No Past Patient History - Infectious Disease Hx of Infectious Diseases: None - Past Medical History & Family History Past Medical History?: Yes - Past Social History Smoking Status: Never Smoked - CARDIAC Hx Atrial Fibrillation: No Hx Congestive Heart Failure: No Hx Hypercholesterolemia: Yes Hx Hypertension: Yes Hx Peripheral Edema: No - PULMONARY Hx Asthma: Yes - NEUROLOGICAL Hx Neurological Disorder: No - HEENT Hx HEENT Problems: No - RENAL Hx Chronic Kidney Disease: No - ENDOCRINE/METABOLIC Hx Endocrine Disorders: Yes Hx Diabetes Mellitus Type 2: Yes - HEMATOLOGICAL/ONCOLOGICAL Hx Human Immunodeficiency Virus (HIV): No - INTEGUMENTARY Hx Dermatological Problems: No - MUSCULOSKELETAL/RHEUMATOLOGICAL Hx Arthritis: Yes - GASTROINTESTINAL Hx Gastritis: Yes (H Pylori) - GENITOURINARY/GYNECOLOGICAL Hx Genitourinary Disorders: No - PSYCHIATRIC Hx Psychophysiologic Disorder: No Hx Substance Use: No - SURGICAL HISTORY Hx Surgeries: Yes Other/Comment: endocopy - ANESTHESIA Hx Anesthesia: Yes Hx Anesthesia Reactions: No Hx Malignant Hyperthermia: No Meds Allergies/Adverse Reactions: Allergies Allergy/AdvReac Type Severity Reaction Status Date / Time Penicillins Allergy SWELLING Verified 10/25/17 00:37 strawberry Allergy SWELLING Verified 10/25/17 00:37 Physical Exam - Constitutional Appears: Non-toxic, No Acute Distress - ENT Exam Additional comments: Dry oral cavity. - Respiratory Exam Respiratory Exam: Clear to Auscultation Bilateral, NORMAL BREATHING PATTERN. absent: Decreased Breath Sounds, Rales, Rhonchi, Wheezes, Respiratory Distress, Stridor - Cardiovascular Exam Cardiovascular Exam: REGULAR RHYTHM, RRR, +S1, +S2. absent: Clicks, Diastolic murmur, Gallop, JVD, Rubs, Systolic Murmur - GI/Abdominal Exam GI & Abdominal Exam: Normal Bowel Sounds, Soft. absent: Distended, Firm, Guarding, Pulsatile Mass, Rebound, Rigid, Tenderness - Extremities Exam Extremities exam: Positive for: normal inspection, pedal pulses present (+2 dorsalis pedis present bilaterally. ). Negative for: pedal edema, tenderness - Neurological Exam Neurological exam: Alert, Oriented x3 - Psychiatric Exam Psychiatric exam: Normal Affect - Skin Skin Exam: Dry, Intact, Normal Color, Warm Results - Vital Signs Recent Vital Signs: Last Vital Signs Temp 98.6 F 12/06/17 11:56 Pulse 82 12/06/17 11:56 Resp 16 12/06/17 11:56 BP 187/99 H 12/06/17 11:56 Pulse Ox 99 12/06/17 11:56 - Labs Result Diagrams: 12/06/17 08:19 12/06/17 08:19 Labs: Laboratory Results - last 24 hr 12/06/17 12/06/17 08:19 08:19 WBC 9.3 RBC 4.40 Hgb 13.4 Hct 38.5 MCV 87.4 MCH 30.4 MCHC 34.7 RDW 13.0 Plt Count 226 MPV 7.7 Neut % (Auto) 82.5 H Lymph % (Auto) 11.[address] [place] % (Auto) 5.9 Eos % (Auto) 0.0 Baso % (Auto) 0.2 Neut # (Auto) 7.7 H Lymph # (Auto) 1.1 [place] # (Auto) 0.6 Eos # (Auto) 0.0 Baso # (Auto) 0.0 Sodium 141 Potassium 3.1 L Chloride 96 L Carbon Dioxide 34 H Anion Gap 14 BUN 17 Creatinine 1.1 Est GFR ( Amer) > 60 Est GFR (Non-Af Amer) > 60 Random Glucose 252 H Calcium 10.0 Total Bilirubin 0.9 AST 28 ALT 60 Alkaline Phosphatase 90 Total Protein 8.1 Albumin 4.7 Globulin 3.4 Albumin/Globulin Ratio 1.4 Lipase 68 Assessment & Plan (1) Diabetic gastroparesis associated with type 2 diabetes mellitus Status: Acute (2) IDDM (insulin dependent diabetes mellitus) Status: Chronic (3) Hypokalemia Status: Chronic (4) HTN (hypertension) Status: Chronic Priority: Medium (5) DVT prophylaxis Status: Acute Priority: Medium - Assessment and Plan (Free Text) Assessment: 52 year old male with PMH of gastritis, hypertension and high cholesterol, presents to the emergency department with non-bloody nausea and vomiting for 2 day duration admitted for Gastroparesis secondary to IDDM2. Plan: 1. Gastroparesis secondary to IDDM2 - Admitted to Med/Surg - NPO - Reglan 10 mg Q6H prn IV - Pantoprazole 40mg IVP daily. - Magnesium: 2.0 - Fluids: D5W 1/2 NS + 20 mEq Kcl @100/hr - F/U electrolytes 2. IDDM type 2 - Hypoglycemia protocol - ISS- Medium - Monitor Glucose levels. - Home medications held due to NPO status. - Levemir 8U HS - Of note, it is documented on [facility] that patient is taking Lantus 24 U and Humalog 4 U with meals. 3. Hypokalemia - Chronic - Potassium level 3.1 . - Repleted in the ED with Potassium 40mg PO but patient vomited shortly afterward. 4. Hypertension - Hydralazine 40mg Q6H IV prn - Monitor vital signs. 5. DVT prophylaxis: - SCD's 6. Code STatus: - Full code
[2017-12-06] MEDS ORDERED: Enalaprilat 2.5 MG/2 ML IVP STA (14:18)
[2017-12-06] MEDS: Potassium Ch 20mEq in D5-1/2NS 1,000 ML IV SCH (17:08)
[2017-12-06] MEDS: Insulin Regular 100 units/ml SC SCH ×2 (17:10→22:02)
[2017-12-06] MEDS ORDERED: Labetalol 5 mg/ml Inj 20ML IVP STA (17:42)
--- NOTE | 2017-12-06 17:50 | PCM.RRT ---
<Cecy Brown - Last Filed: 12/06/17 18:00> NAPHTHA WASHING SYSTEM OPERATOR Nurse Assessment - Situation Location: 656 [employer] OPERATOR Reason for Call: Hypertension [employer]APHTHA W[employer]ING SYSTEM OPERATOR Called By: RN - IV IV Inserted during [employer]APH[employer] W[employer]ING SYSTEM OPERATOR?: Yes IV Fluids Initiated During NAPH[employer] W[employer]ING SYSTEM OPERATOR?: no New IV Insertion Tolerance:: Excellent - Respiratory Received Nebulizer Treatments: No Was the Patient Ventilated with Bag/Mask 100% O2?: No Secretions Suctioned?: No Was the Patient Intubated?: No Was the Patient Placed on a Ventilator?: No - Medication Medications Administered During NAPHTHA W[employer]ING SYSTEM OPERATOR: labetolol 20mg - Diagnostic Test Ordered EKG: Yes Chest X-Ray: No CT Scan: No CPR started during [employer]APH[employer] W[employer]ING SYSTEM OPERATOR?: No - Vital Signs Vital Signs: BP:203/92 Pulse-84bpm RR-16 spo2-100% Temp: 98.7F - Sherita Coma Scale Coma Scale Eye Opening: Spontaneous Coma Scale Motor: Obeys Commands Movement Coma Scale Verbal: Oriented Coma Scale Total: 15 - Time [employer] W[employer]ING SYSTEM OPERATOR Ended Time [employer]APHTHA W[employer]ING SYSTEM OPERATOR Ended: 17:50 - Vital Signs at end of [employer] W[employer]ING SYSTEM OPERATOR Vital Signs at end of N[employer] WASHING SYSTEM OPERATOR: BP: 164/85 Pulse: 70BPM RR: 16 Spo2: 99% - Recommendations NAPHTHA WASHING SYSTEM OPERATOR Level of Care Recommendations: Remain in current setting Notifications: Attending Physician I.Reason for NAPHTHA WASHING SYSTEM OPERATOR - A) Acute Change in Patient: (Select all that apply): Staff member or family is worried about patient (SBP > 200mm Hg) - Neurological Status (Select all that apply): Alert, Responsive, Oriented, Verbal, Follows Commands - Respiratory Oxygen Delivery Method: Room Air - Constitutional Appears: Well, No Acute Distress - Head Head Exam: ATRAUMATIC, NORMOCEPHALIC - Eyes Eye Exam: PERRL - Respiratory Exam Respiratory Exam: Clear to Ausculation Bilateral - Cardiovascular Exam Cardiovascular Exam: RRR, +S1, +S2 - GI/Abdominal Exam GI & Abdominal Exam: Soft, Normal Bowel Sounds - Neurological Exam Neurological Exam: Oriented x3 - Extremities Exam Extremities Exam: Full ROM Plan - Assessment of Findings&Treatment Plan 52 y/o M with DM, HTN, gastroparesis, and hypokalemia found to be HTN with BP of 203/192. Hypertension 1. 1 dose of labetolol 20mg given. Will continue to monitor for acute changes. 2. Continue Med/surg admission. <Brijesh Jones - Last Filed: 12/07/17 09:31> NAPHTHA WASHING SYSTEM OPERATOR Nurse Assessment - Vital Signs Vital Signs: Rapid Response Vital Sign Blood Pressure 203/92 Pulse Rate 78 - Vital Signs at end of NAPHTHA WASHING SYSTEM OPERATOR Vital Signs at end of NAPHTHA WASHING SYSTEM OPERATOR: Rapid Response End Vital Sign Blood Pressure 150/76 Pulse Rate 73 Attending/Attestation - Attestation I have personally seen and examined this patient.: Yes I have fully participated in the care of the patient.: Yes I have reviewed all pertinent clinical information, including history, physical exam and plan: Yes
--- NOTE | 2017-12-06 20:14 | CP.PCM.PCO ---
Physician Communication Note - Physician Communication Note Physician Communication Note: Nurses alerted of pts BP: 203/92. Pt seen at bedside: sleeping. Assessment & Plan - Assessment and Plan (Free Text) Plan: Pt denies RUSSELL/CP/SOB/N/V. was recently started on PO liquid diet. Plan: Restart PO anti hypertensive meds. Will continue to monitor BP and symptoms f/u AM CMP All Stern MD PGY2
[2017-12-06] MEDS ORDERED: Insulin Detemir 100 Units/ml Inj SC SCH (22:00)
[2017-12-06] MEDS: Docusate-Senna 50 mg-8.6 mg Tab PO SCH (22:23)
[2017-12-07] MEDS: Potassium Ch 20mEq in D5-1/2NS 1,000 ML IV SCH (03:59)
[2017-12-07 06:17] LABS: BASO # 0.1 K/uL (0.0-0.2); BASO % 0.5 % (0.0-2.0); EOS % 0.1 % (0.0-4.0); HEMOGLOBIN 14.3 g/dL (12.0-18.0); LYMPH # 1.9 K/uL (1.0-4.3); LYMPH % 14.9 % (20.0-40.0); MEAN CELL VOLUME 87.3 fl (80.0-94.0); MEAN CORPUSCULAR HEMOGLOBIN 30.3 pg (27.0-31.0); MEAN CORPUSCULAR HGB CONC 34.7 g/dL (33.0-37.0); MEAN PLATELET VOLUME 7.8 fl (7.2-11.7); MONO % 7.5 % (0.0-10.0); NEUT # 10.1 K/uL (1.8-7.0); RBC 4.71 Mil/uL (4.40-5.90); RED CELL DISTRIBUTION WIDTH 12.8 % (11.5-14.5)
[2017-12-07 06:28] LABS: ALB/GLOB RATIO 1.4 (1.0-2.1); ALBUMIN 4.5 g/dL (3.5-5.0); ALT/SGPT 40 U/L (21-72); AST/SGOT 22 U/L (17-59); BLOOD UREA NITROGEN 10 mg/dl (9-20); CALCIUM 9.7 mg/dL (8.4-10.2); GFR NON-AFRICAN AMERICAN > 60
[2017-12-07] MEDS: Insulin Regular 100 units/ml SC SCH ×4 (09:13→22:12)
--- NOTE | 2017-12-07 09:38 | CP.PCM.PN ---
Subjective - Date & Time of Evaluation Date of Evaluation: 12/07/17 Time of Evaluation: 09:00 - Subjective Subjective: Pt seen and examined at bed side. An [employer]ER DESIGNER was called on PT due to High blood pressure at 17:47 1 dose of labetolol 20mg IV given, and a sec dose was given PO later in the day. Labetalol was D/c in morning as Home medication was restarted. Pt could not sleep in the night. Pt does not want to eat today due to fear of vomiting again, and have slept all day. Pt had no other complain he denies fever, chills, chest pain, sob, abd pain, diarrhea, dysuria or polyuria. Objective - Vital Signs/Intake and Output Vital Signs (last 24 hours): Temp Pulse Resp BP Pulse Ox 98.8 F 79 20 180/97 H 99 12/07/17 00:09 12/07/17 09:17 12/07/17 00:09 12/07/17 09:17 12/07/17 00:09 - Medications Medications: Current Medications Amlodipine Besylate (Norvasc) 10 mg PO DAILY [facility] Last Admin: 12/07/17 09:15 Dose: 10 mg Aspirin (Ecotrin) 81 mg PO DAILY [facility] Last Admin: 12/07/17 09:13 Dose: 81 mg Atorvastatin Calcium (Lipitor) 10 mg PO DAILY [facility] Last Admin: 12/07/17 09:15 Dose: 10 mg Dextrose (Glutose 15) 0 gm PO ONCE PRN; Protocol PRN Reason: Hypoglycemia Protocol Famotidine (Pepcid) 20 mg PO BID [facility] Last Admin: 12/07/17 09:16 Dose: 20 mg Gabapentin (Neurontin) 600 mg PO [facility] Last Admin: 12/06/17 22:01 Dose: 600 mg Glucagon (Glucagen Diagnostic Kit) 0 mg IM STAT PRN; Protocol PRN Reason: Hypoglycemia Protocol Hydralazine HCl (Apresoline) 10 mg IV Q6 PRN PRN Reason: Blood pressure >140/90 Last Admin: 12/06/17 12:28 Dose: 10 mg Insulin Detemir (Levemir) 8 units SC [facility] Last Admin: 12/06/17 22:01 Dose: 8 u Insulin Human Regular (Humulin R) 0 units SC ACCU-CHECK [facility] PRN Reason: Protocol Last Admin: 12/07/17 09:13 Dose: 3 units Labetalol HCl (Trandate) 100 mg PO BID [facility] Last Admin: 12/06/17 23:53 Dose: 100 mg Lisinopril (Zestril) 40 mg PO DAILY [facility] Last Admin: 12/07/17 09:17 Dose: 40 mg Metformin HCl (Glucophage) 1,000 mg PO BIDWM [facility] Last Admin: 12/07/17 09:13 Dose: 1,000 mg Metoclopramide HCl (Reglan) 10 mg IVP Q6 [facility] Ondansetron HCl (Zofran Inj) 4 mg IVP Q6 PRN PRN Reason: Nausea/Vomiting Pantoprazole Sodium (Protonix Inj) 40 mg IVP DAILY [facility] Last Admin: 12/07/17 09:16 Dose: 40 mg Senna/Docusate Sodium (Senokot S 50 Mg-8.6 Mg) 2 tab PO HS [facility] Last Admin: 12/06/17 22:23 Dose: 2 tab - Labs Labs: 12/07/17 05:30 12/07/17 05:30 - Constitutional Appears: Well, Non-toxic, No Acute Distress - Head Exam Head Exam: ATRAUMATIC, NORMAL INSPECTION, NORMOCEPHALIC - Eye Exam Eye Exam: EOMI, Normal appearance, PERRL Pupil Exam: NORMAL ACCOMODATION, PERRL - ENT Exam ENT Exam: Mucous Membranes Moist, Normal Exam - Neck Exam Neck Exam: Full ROM, Normal Inspection - Respiratory Exam Respiratory Exam: Clear to Ausculation Bilateral, NORMAL BREATHING PATTERN - Cardiovascular Exam Cardiovascular Exam: REGULAR RHYTHM, +S1, +S2 - GI/Abdominal Exam GI & Abdominal Exam: Soft, Normal Bowel Sounds - Extremities Exam Extremities Exam: Full ROM, Normal Capillary Refill, Normal Inspection - Back Exam Back Exam: NORMAL INSPECTION. absent: CVA tenderness (L), CVA tenderness (R) - Neurological Exam Neurological Exam: Alert, Awake, Normal Gait - Psychiatric Exam Psychiatric exam: Normal Affect, Normal Mood - Skin Skin Exam: Dry, Intact, Normal Color, Warm Assessment and Plan - Assessment and Plan (Free Text) Assessment: Assessment: 52 yo male with PMH of Gastritis, Hypertension and high cholesterol present to ER with non-bloody N and V for 2 day. Admitted for Gastroparessis sec to IDDM2 Plan: 1. Gastroparesis secondary to IDDM2 Improved Tolerate liquid diet Unable to eat regular food due to fearing vomit Reglan 10 mg Q6H stone IV Continue Pantoprazole 40mg IVP daily. PO potassium once F/U CBC BMP 2. IDDM type 2 Glucose 190 Hypoglycemia protocol ISS- Medium Monitor Glucose levels. Continue home medication Levemir 8U HS 3. Hypokalemia Imrpoved Potassium level 3.4 PO Potassium once. 4. Hypertension Chronic HTN, Uncontrolled Will continue Home medication 5. DVT prophylaxis: - SCD's 6. Code STatus: - Full code
[2017-12-07] MEDS ORDERED: Potassium Chloride 20 mEq ER Tab PO ONE (10:44)
[2017-12-07] MEDS: Insulin Detemir 100 Units/ml Inj SC SCH ×2 (14:49→22:12)
[2017-12-07 16:12] VITALS: O2SAT 99
[2017-12-07] MEDS: Docusate-Senna 50 mg-8.6 mg Tab PO SCH (22:22)
[2017-12-07 23:44] VITALS: RESP 20
[2017-12-08 06:32] LABS: HEMOGLOBIN 14.6 g/dL (12.0-18.0); MEAN CELL VOLUME 87.2 fl (80.0-94.0); MEAN CORPUSCULAR HEMOGLOBIN 30.5 pg (27.0-31.0); RBC 4.79 Mil/uL (4.40-5.90); RED CELL DISTRIBUTION WIDTH 12.6 % (11.5-14.5); WHITE BLOOD COUNT 10.7 K/uL (4.8-10.8)
[2017-12-08 07:04] LABS: BLOOD UREA NITROGEN 12 mg/dl (9-20); CALCIUM 9.8 mg/dL (8.4-10.2); GFR NON-AFRICAN AMERICAN > 60
[2017-12-08 08:24] VITALS: BP 168/96; PULSE 82; TEMP 97.9
--- NOTE | 2017-12-08 16:39 | CP.PCM.DIS ---
Provider - Provider Date of Admission: 12/06/17 11:32 Attending physician: Audrey Larson MD Time Spent in preparation of Discharge (in minutes): 20 Diagnosis - Discharge Diagnosis (1) Acute hyperglycemia Status: Acute (2) Gastritis Status: Acute (3) Intractable vomiting with nausea Status: Acute (4) Hypokalemia Status: Acute (5) Dehydration Status: Acute Priority: High (6) Hypertension Status: Chronic (7) IDDM (insulin dependent diabetes mellitus) Status: Chronic (8) DVT prophylaxis Status: Acute Priority: Medium Hospital Course - Lab Results Lab Results: Most Recent Lab Values WBC 10.7 K/uL (4.8-10.8) 12/08/17 05:30 RBC 4.79 Mil/uL (4.40-5.90) 12/08/17 05:30 Hgb 14.6 g/dL (12.0-18.0) 12/08/17 05:30 Hct 41.8 % (35.0-51.0) 12/08/17 05:30 MCV 87.2 fl (80.0-94.0) 12/08/17 05:30 MCH 30.5 pg (27.0-31.0) 12/08/17 05:30 MCHC 35.0 g/dL (33.0-37.0) 12/08/17 05:30 RDW 12.6 % (11.5-14.5) 12/08/17 05:30 Plt Count 245 K/uL (130-400) 12/08/17 05:30 MPV 7.8 fl (7.2-11.7) 12/07/17 05:30 Neut % (Auto) 77.0 % (50.0-75.0) H 12/07/17 05:30 Lymph % (Auto) 14.9 % (20.0-40.0) L 12/07/17 05:30 [place] % (Auto) 7.5 % (0.0-10.0) 12/07/17 05:30 Eos % (Auto) 0.1 % (0.0-4.0) 12/07/17 05:30 Baso % (Auto) 0.5 % (0.0-2.0) 12/07/17 05:30 Neut # (Auto) 10.1 K/uL (1.8-7.0) H 12/07/17 05:30 Lymph # (Auto) 1.9 K/uL (1.0-4.3) 12/07/17 05:30 [place] # (Auto) 1.0 K/uL (0.0-0.8) H 12/07/17 05:30 Eos # (Auto) 0.0 K/uL (0.0-0.7) 12/07/17 05:30 Baso # (Auto) 0.1 K/uL (0.0-0.2) 12/07/17 05:30 Sodium 135 mmol/l (132-148) 12/08/17 05:30 Potassium 3.9 MMOL/L (3.6-5.0) 12/08/17 05:30 Chloride 99 mmol/L (98-107) 12/08/17 05:30 Carbon Dioxide 28 mmol/L (22-30) 12/08/17 05:30 Anion Gap 12 (10-20) 12/08/17 05:30 BUN 12 mg/dl (9-20) 12/08/17 05:30 Creatinine 1.0 mg/dl (0.8-1.5) 12/08/17 05:30 Est GFR ( Amer) > 60 12/08/17 05:30 Est GFR (Non-Af Amer) > 60 12/08/17 05:30 POC Glucose (mg/dL) 171 mg/dL (65-110) H 12/08/17 11:12 Random Glucose 144 mg/dL (75-110) H 12/08/17 05:30 Hemoglobin A1c 6.9 % (4.2-6.5) H 12/07/17 05:30 Calcium 9.8 mg/dL (8.4-10.2) 12/08/17 05:30 Magnesium 2.0 MG/DL (1.6-2.3) 12/06/17 12:40 Total Bilirubin 1.2 mg/dl (0.2-1.3) 12/07/17 05:30 AST 22 U/L (17-59) 12/07/17 05:30 ALT 40 U/L (21-72) 12/07/17 05:30 Alkaline Phosphatase 81 U/L (38-126) 09/24/18 05:30 Total Protein 7.7 G/DL (6.3-8.2) 12/07/17 05:30 Albumin 4.5 g/dL (3.5-5.0) 12/07/17 05:30 Globulin 3.2 gm/dL (2.2-3.9) 12/07/17 05:30 Albumin/Globulin Ratio 1.4 (1.0-2.1) 12/07/17 05:30 Lipase 68 U/L (23-300) 12/06/17 08:19 - Hospital Course Hospital Course: 52 year old male with PMH of gastritis, hypertension and high cholesterol, presents to the emergency department with non-bloody nausea and vomiting onset Thursday, 12/05. Pt was admitted for Diabetic gastroparesis associated with Type 2 DM. Pt was admitted to Med/surg put on NPO, Reglan/PPI and Mg was given. Pt was found to be hypokalimic and dehydrated, D5W 1/2 NS + 20 mEq Kcl @100/hr. Overnight [employer] was called due to blood high blood pressure, Labetalol 20mg IV was given and one extra dose PO later in the night, all his BP medication were stop at moment. Pt was restarted on home medication, BP was controlled. Potassium have improved . Pt was able to tolerate solid food, Pt denies any Nausea, vomiting, Diarrhea or constipation. Pt denies headache, chest pain, SOB, abdominal pain or any other symptoms. Pt is comfortable to go home. Pt chart was reviewed, Pt vitals are stable except for mild high blood pressure, Pt status improved. Medical team Clear patient to go home and continue home medication With modification Lantos 12 unit at night Metformin 1000 bid Lotrel 140mg daily Case discussed with Dr Zhu. Dr Zhu agree with Plan Concern were discussed with Pt, Question were answered Pt should follow up with Dr. Zhu this Thursday Medication Lantos 12 unit at night Metformin 1000 bid Lotrel 140mg daily omeprazole 20 mg Atorvastatin 10mg [place] 2 pill at night Aspirin 81 Discharge Exam - Head Exam Head Exam: ATRAUMATIC, NORMAL INSPECTION, NORMOCEPHALIC - Eye Exam Eye Exam: EOMI, Normal appearance, PERRL Pupil Exam: NORMAL ACCOMODATION, PERRL - Respiratory Exam Respiratory Exam: Clear to PA & Lateral, NORMAL BREATHING PATTERN, UNREMARKABLE. absent: Chest Wall Tenderness, Decreased Breath Sounds - Cardiovascular Exam Cardiovascular Exam: REGULAR RHYTHM, +S1, +S2. absent: Diastolic murmur, Irregular Rhythm, Systolic Murmur - GI/Abdominal Exam GI & Abdominal Exam: Normal Bowel Sounds, Soft, Unremarkable. absent: Guarding, Rigid, Tenderness - Extremities Exam Extremities exam: full ROM - Back Exam Back exam: FULL ROM. absent: CVA tenderness (L), CVA tenderness (R) - Neurological Exam Neurological exam: Alert, Oriented x3 - Psychiatric Exam Psychiatric exam: Normal Affect, Normal Mood - Skin Skin Exam: Dry, Intact, Normal Color, Warm Discharge Plan - Discharge Medications Prescriptions: Amlodipine Besylate/Benazepril [Lotrel 10 mg-40 mg] 1 cap PO DAILY #30 cap MetFORMIN [glucoPHAGE] 1,000 mg PO BIDWM #60 tab Metoclopramide [Reglan] 10 mg PO ACTID #21 tab - Follow Up Plan Condition: STABLE Disposition: HOME/ ROUTINE Instructions: Nausea and Vomiting, Adult (DC), Rotavirus Infection (DC), Rotavirus Infection (GEN), Dehydration (DC), Hypokalemia (DC), Hypokalemia (GEN), Hypertension (DC), Hypertension (GEN), Nutrition Tips for Relief of Diarrhea (DC), Nutrition Tips for Relief of Diarrhea (GEN) Additional Instructions: follow up with DR Larson this Thursday AM 12/11/17 or Next Thursday12/15/17 AM. Call for appt Referrals: [facility] [Outside] Audrey Larson MD [Family Provider] -
== END 2017-12-08 15:12 | disposition home or self-care (01) ==
LOC: H.ER 07:22 → H.ERHOLD 11:32 → H.MEDSURG1 13:25
PROVIDERS: ADMIT Family Medicine; ATTEND Family Medicine
DX: E87.6 Hypokalemia (principal); E11.43 Type 2 diabetes mellitus with diabetic autonomic (poly)neuropathy; K31.84 Gastroparesis; I10 Essential (primary) hypertension; E78.00 Pure hypercholesterolemia, unspecified; K29.70 Gastritis, unspecified, without bleeding; J45.909 Unspecified asthma, uncomplicated; M19.90 Unspecified osteoarthritis, unspecified site; Z79.4 Long term (current) use of insulin; Z79.84 Long term (current) use of oral hypoglycemic drugs; Z79.82 Long term (current) use of aspirin; Z88.0 Allergy status to penicillin
CPT/HCPCS: 36415; 80048; 80053; 82948; 83036; 83690; 83735; 85025; 85027; 96374; 99285; C9113; G0378; J0360; J2405; J2765; J7030

== ENCOUNTER 2018-01-19 07:45 | Inpatient (IN) | payer OTHER ==
[2018-01-19] MEDS ORDERED: Sodium Chloride 0.9% 1,000 ML IV STA ×2 (08:19→09:45)
--- NOTE | 2018-01-19 09:01 | ED PDOC ---
HPI:Nausea, Vomiting, Diarrhea Time Seen by Provider: 01/19/18 08:08 Chief Complaint (Nursing): GI Problem Chief Complaint (Provider): GI Problem History Per: Patient History/Exam Limitations: no limitations Onset/Duration Of Symptoms: Hrs (x3) Current Symptoms Are (Timing): Still Present Additional Complaint(s): 52 year old male with pmHx of gastroparesis, DM, and HTN, presents to ED with multiple episodes of nonbloody, nonbilious vomiting since this morning. He den ies any abdominal pain, fever, chills, diarrhea, constipation, recent sick contacts, travel or antibiotic use. Patient has had similar symptoms in the past with some hospital admissions. PCP: Dr. Audrey Larson at [facility] Past Medical History Reviewed: Historical Data, Nursing Documentation, Vital Signs Vital Signs: Last Vital Signs Temp 97.7 F 01/19/18 07:50 Pulse 88 01/19/18 07:50 Resp 20 01/19/18 07:50 BP 193/93 H 01/19/18 07:50 Pulse Ox 99 01/19/18 07:50 - Medical History PMH: Arthritis, Asthma, Diabetes (IDDM), Gastritis (H Pylori), HTN, Hypercholesterolemia Denies: Atrial Fibrillation, CHF, HIV, Peripheral Edema, Chronic Kidney Disease - Surgical History Surgical History: Endoscopy - Family History Family History: States: Unknown Family Hx, Diabetes, Hypertension - Home Medications Home Medications: Ambulatory Orders Medication Instructions Recorded Amlodipine Besylate/Benazepril 1 cap PO DAILY 01/19/18 [Lotrel 10-40 mg Capsule] Atorvastatin [Lipitor] 10 mg PO HS 01/19/18 Insulin Glargine,Hum.rec.anlog 24 unit SC HS 01/19/18 [Lantus Solostar] Insulin Lispro [humALOG] 4 unit SC AC 01/19/18 Metoclopramide [Reglan] 10 mg PO TID PRN 01/19/18 Omeprazole 20 mg PO DAILY 01/19/18 Ondansetron [Zofran Odt] 4 mg PO Q8 PRN 01/19/18 RX: Aspirin [Ecotrin] 81 mg PO DAILY 01/19/18 RX: Gabapentin [Neurontin] 600 mg PO HS 01/19/18 RX: MetFORMIN [glucoPHAGE] 1,000 mg PO BID 01/19/18 - Allergies Allergies/Adverse Reactions: Allergies Allergy/AdvReac Type Severity Reaction Status Date / Time Penicillins Allergy SWELLING Verified 10/25/17 00:37 strawberry Allergy SWELLING Verified 10/25/17 00:37 Review of Systems ROS Statement: Except As Marked, All Systems Reviewed And Found Negative Constitutional: Negative for: Fever, Chills Gastrointestinal: Positive for: Vomiting (NBNB). Negative for: Abdominal Pain, Diarrhea, Constipation Physical Exam - Reviewed Nursing Documentation Reviewed: Yes Vital Signs Reviewed: Yes - Physical Exam Appears: Positive for: Well, Non-toxic, No Acute Distress Head Exam: Positive for: ATRAUMATIC, NORMAL INSPECTION, NORMOCEPHALIC Skin: Positive for: Normal Color Eye Exam: Positive for: Normal appearance, EOMI, PERRL ENT: Positive for: Normal ENT Inspection. Negative for: Pharyngeal Erythema, Tonsillar Swelling Neck: Positive for: Normal, Supple Cardiovascular/Chest: Positive for: Regular Rate, Rhythm, Chest Non Tender Respiratory: Positive for: Normal Breath Sounds. Negative for: Respiratory Distress Gastrointestinal/Abdominal: Positive for: Normal Exam, Soft. Negative for: Tenderness Back: Positive for: Normal Inspection. Negative for: L CVA Tenderness, R CVA Tenderness Extremity: Positive for: Normal ROM (upper/lower) Neurologic/Psych: Positive for: Alert, Oriented - Laboratory Results Result Diagrams: 01/19/18 09:01 01/19/18 09:01 - ECG O2 Sat by Pulse Oximetry: 99 (RA) Pulse Ox Interpretation: Normal Medical Decision Making Medical Decision Making: Initial Impression: Vomiting Differential Diagnosis: gastroparesis, acute gastritis, acute pancreatitis, less likely SBO. Initial Plan: * Labs * IV fluids * Pepcid 20mg IVP * Reglan 10mg IVP * Zofran inj 4mg IVP * * 1100 Discussed the xase with Dr Powell who will be on consult. * * CT abdomen and US abdomen are pending * - Scribe Attestation: Documented by Nhung Wei, acting as a scribe for Dino Ferris MD. Provider Scribe Attestation: All medical record entries made by the Scribe were at my direction and personally dictated by me. I have reviewed the chart and agree that the record accurately reflects my personal performance of the history, physical exam, medical decision making, and the department course for this patient. I have also personally directed, reviewed, and agree with the discharge instructions and disposition. Disposition - Clinical Impression Clinical Impression: Vomiting in adult, Intractable vomiting with nausea, Gastroparesis, Pancreatitis, acute - Patient ED Disposition Is Patient to be Admitted: Yes Discussed With : Fran Rosa Doctor Will See Patient In The: ED Counseled Patient/Family Regarding: Studies Performed, Diagnosis - Disposition Disposition Time: 10:00 Condition: FAIR - Pt Status Changed To: Hospital Disposition Of: Inpatient - Admit Certification Admit to Inpatient:: After my assessment, the patient will require hospitalization for at least two midnights. This is because of the severity of symptoms shown, intensity of services needed, and/or the medical risk in this patient being treated as an outpatient. - POA Present On Arrival: None
[2018-01-19 09:13] LABS: BASO % 0.4 % (0.0-2.0); EOS # 0.2 K/uL (0.0-0.7); EOS % 2.2 % (0.0-4.0); HEMOGLOBIN 12.3 g/dL (12.0-18.0); LYMPH % 11.1 % (20.0-40.0); MEAN CELL VOLUME 90.9 fl (80.0-94.0); MEAN CORPUSCULAR HEMOGLOBIN 30.3 pg (27.0-31.0); MEAN CORPUSCULAR HGB CONC 33.3 g/dL (33.0-37.0); MEAN PLATELET VOLUME 7.8 fl (7.2-11.7); MONO # 0.3 K/uL (0.0-0.8); MONO % 3.4 % (0.0-10.0); NEUT # 7.6 K/uL (1.8-7.0); NEUT % 82.9 % (50.0-75.0); RBC 4.05 Mil/uL (4.40-5.90); RED CELL DISTRIBUTION WIDTH 12.9 % (11.5-14.5); WHITE BLOOD COUNT 9.2 K/uL (4.8-10.8)
[2018-01-19 09:15] LABS: ALB/GLOB RATIO 1.4 (1.0-2.1); ALBUMIN 4.5 g/dL (3.5-5.0); ALT/SGPT 20 U/L (21-72); AST/SGOT 20 U/L (17-59); BLOOD UREA NITROGEN 10 mg/dl (9-20); CALCIUM 9.3 mg/dL (8.4-10.2); GFR NON-AFRICAN AMERICAN > 60; LIPASE 1649 U/L (23-300)
[2018-01-19] MEDS ORDERED: DiphenhydrAMINE 50 mg/ml Inj IV STA (10:11)
[2018-01-19] MEDS ORDERED: DiphenhydrAMINE 50 mg/ml Inj ONE (10:23)
--- NOTE | 2018-01-19 10:42 | CP.PCM.HP ---
History of Present Illness - History of Present Illness History of Present Illness: CC: "Lorene been throwing up all morning" 52 year old male with PMHx of IDDM2, Gastritis, HTN, HLD, peripheal neuropathy presented to ED for evaluation of vomiting. pt went to bed last night in usual state of health, but woke up today vomiting. He had 7 episodes of NBNB emesis. He denies any other symptoms. He denies any recent change in diet, ETOH abuse, or sick contacts. No other complaints. Did not take home meds today. Denies f ever/chills, headaches, changes in vision, CP/SOB/palpitations, N/V/D/C, urinary symptoms. ROS: 12 point system reviewed, all negative unless otherwise mentioned in HPI. PMD: Dr. Larson Social: Lives at home with his children. Is not currently working. He denies use of illicit drugs, alcohol and smoking. PMHx: IDDM2- diagnosed in 2005, HTN, Gastroparesis, peripheral neuropathy Meds: as per med rec ALL: Pencillin (swelling) Psurghx: none FamilyHx: HTN, seizures SocialHx: denies ETOH/Tobacco/drug abuse Next of Kin: Fannie Cevallos [phone] Code Status: full code Present on Admission - Present on Admission Any Indicators Present on Admission: Yes History of DVT/PE: No History of Uncontrolled Diabetes: Yes Urinary Catheter: No Decubitus Ulcer Present: No Past Patient History - Infectious Disease Hx of Infectious Diseases: None - Past Medical History & Family History Past Medical History?: Yes - Past Social History Smoking Status: Never Smoked - CARDIAC Hx Atrial Fibrillation: No Hx Congestive Heart Failure: No Hx Hypercholesterolemia: Yes Hx Hypertension: Yes Hx Peripheral Edema: No - PULMONARY Hx Asthma: Yes - NEUROLOGICAL Hx Neurological Disorder: No - HEENT Hx HEENT Problems: No - RENAL Hx Chronic Kidney Disease: No - ENDOCRINE/METABOLIC Hx Endocrine Disorders: Yes Hx Diabetes Mellitus Type 2: Yes - HEMATOLOGICAL/ONCOLOGICAL Hx Human Immunodeficiency Virus (HIV): No - INTEGUMENTARY Hx Dermatological Problems: No - MUSCULOSKELETAL/RHEUMATOLOGICAL Hx Arthritis: Yes - GASTROINTESTINAL Hx Gastritis: Yes (H Pylori) - GENITOURINARY/GYNECOLOGICAL Hx Genitourinary Disorders: No - PSYCHIATRIC Hx Psychophysiologic Disorder: No Hx Substance Use: No - SURGICAL HISTORY Hx Surgeries: Yes Other/Comment: endocopy - ANESTHESIA Hx Anesthesia: Yes Hx Anesthesia Reactions: No Hx Malignant Hyperthermia: No Meds Allergies/Adverse Reactions: Allergies Allergy/AdvReac Type Severity Reaction Status Date / Time Penicillins Allergy SWELLING Verified 10/25/17 00:37 strawberry Allergy SWELLING Verified 10/25/17 00:37 Physical Exam - Constitutional Appears: Non-toxic, No Acute Distress - Head Exam Head Exam: ATRAUMATIC, NORMOCEPHALIC - Eye Exam Eye Exam: EOMI, PERRL. absent: Nystagmus, Scleral icterus - ENT Exam ENT Exam: Mucous Membranes Moist - Neck Exam Neck exam: Positive for: Normal Inspection - Respiratory Exam Respiratory Exam: Clear to Auscultation Bilateral, NORMAL BREATHING PATTERN. absent: Accessory Muscle Use, Rales, Rhonchi, Wheezes - Cardiovascular Exam Cardiovascular Exam: REGULAR RHYTHM, RRR, +S1, +S2. absent: Tachycardia, JVD, Rubs, Systolic Murmur - GI/Abdominal Exam GI & Abdominal Exam: Normal Bowel Sounds, Soft. absent: Distended, Firm, Guarding, Mass, Pulsatile Mass, Rebound, Rigid, Tenderness - Extremities Exam Extremities exam: Positive for: normal capillary refill, normal inspection, pedal pulses present. Negative for: calf tenderness Additional comments: dry skin b/l - Neurological Exam Neurological exam: Alert, CN II-XII Intact, Oriented x3 - Psychiatric Exam Psychiatric exam: Normal Affect, Normal Mood - Skin Skin Exam: Dry Results - Vital Signs Recent Vital Signs: Last Vital Signs Temp 97.7 F 01/19/18 07:50 Pulse 88 01/19/18 07:50 Resp 20 01/19/18 07:50 BP 193/93 H 01/19/18 07:50 Pulse Ox 99 01/19/18 09:09 - Labs Result Diagrams: 01/19/18 09:01 01/19/18 09:01 Labs: Laboratory Results - last 24 hr 01/19/18 01/19/18 01/19/18 08:41 09:01 09:01 WBC 9.2 RBC 4.05 L Hgb 12.3 D Hct 36.8 MCV 90.9 D MCH 30.3 MCHC 33.3 RDW 12.9 Plt Count 211 MPV 7.8 Neut % (Auto) 82.9 H Lymph % (Auto) 11.1 L [place] % (Auto) 3.4 Eos % (Auto) 2.2 Baso % (Auto) 0.4 Neut # (Auto) 7.6 H Lymph # (Auto) 1.0 [place] # (Auto) 0.3 Eos # (Auto) 0.2 Baso # (Auto) 0.0 Sodium 140 Potassium 3.8 Chloride 107 Carbon Dioxide 20 L Anion Gap 17 BUN 10 Creatinine 0.9 Est GFR ( Amer) > 60 Est GFR (Non-Af Amer) > 60 POC Glucose (mg/dL) 244 H Random Glucose 235 H Calcium 9.3 Total Bilirubin 0.6 AST 20 ALT 20 L D Alkaline Phosphatase 66 Total Protein 7.7 Albumin 4.5 Globulin 3.2 Albumin/Globulin Ratio 1.4 Lipase 1649 H Assessment & Plan - Assessment and Plan (Free Text) Assessment: 52 year old male with PMHx of IDDM2, gastritis, hypertension and HLD admitted for Gastroparesis and acute pancreatitis. Plan: 1. Gastroparesis secondary to IDDM2 -Admitted to Med/Surg -NPO -advance diet as tolerated -Reglan 10 mg Q6H CHRISTY IV -Pantoprazole 40mg IVP daily -F/U electrolytes 2) Elevated Lipase -BISAP score: 0 -no abdominal pain -repeat -LR 100mls/hr -NPO -advance diet as tolerated -ABD CT pending -IV Reglan CHRISTY -GI Consult pending 3) IDDM type 2 -Hypoglycemia protocol -ISS- Medium -Monitor Glucose levels. -Home medications held due to NPO status. -Levemir 8U HS 4. Hypertension -uncontrolled -labetalol 20mg IV PRN -hydralzine 40mg IV PRN -Monitor vital signs. 5. DVT prophylaxis: -SCD's -Lovenox 40mg SC QD 6. Code Status: - Full code
[2018-01-19] MEDS ORDERED: Lactated Ringer's 1,000 ML IV SCH (11:00)
[2018-01-19] MEDS ORDERED: Labetalol 5mg/ml (4ml) IVP STA (11:05)
[2018-01-19] MEDS ORDERED: Iohexol 300 100 ML IJ ONE ×2 (11:31→15:44)
[2018-01-19] MEDS ORDERED: Sodium Chloride 0.9% 50 ML IV ONE (11:31)
[2018-01-19] MEDS: Insulin Lispro (humaLOG) 100 Units/ml Inj SC SCH ×3 (12:39→22:22)
[2018-01-19] MEDS ORDERED: Labetalol 5mg/ml (4ml) ONE ×2 (12:45→17:24)
[2018-01-19] MEDS ORDERED: Lidocaine 1% Inj (20ml) ONE (14:11)
--- NOTE | 2018-01-19 14:39 | PCM.SURG1 ---
Surgeon's Initial Post Op Note - Surgeon's Notes Surgeon: Diasy Greenhouse Specialist: None Type of Anesthesia: Local Pre-Operative Diagnosis: IV access Operative Findings: Patent right brachial vein Post-Operative Diagnosis: IV access Operation Performed: Right brachial vein 4F SL 40cm PICC placed with the tip at the RA/SVC junction Specimen/Specimens Removed: None Estimated Blood Loss: EBL {In ML}: 1 Date of Surgery/Procedure: 01/19/18 Time of Surgery/Procedure: 14:30
[2018-01-19] MEDS ORDERED: Labetalol 5 mg/ml Inj 20ML IVP STA (15:42)
--- NOTE | 2018-01-19 16:25 | CT ---
Date of service: 01/19/2018 PROCEDURE: CT Abdomen and Pelvis with contrast HISTORY: vomiting pancreatitis COMPARISON: Abdomen pelvis CT with contrast 08/07/2017. TECHNIQUE: Following the intravenous administration of iodinated contrast material, a CT examination of the abdomen and pelvis performed from the domes of the diaphragms to the symphysis pubis with reformatted datasets provided in axial, sagittal and coronal planes. Oral contrast was not administered as per referring physician request. Coronal and sagittal reformats were generated. Contrast dose: Omnipaque 300, 90 cc Radiation dose: Total exam DLP = 294.27 mGy-cm. This CT exam was performed using one or more of the following dose reduction techniques: Automated exposure control, adjustment of the mA and/or kV according to patient size, and/or use of iterative reconstruction technique. FINDINGS: LOWER THORAX: Unremarkable. LIVER: Unremarkable. No gross lesion or ductal dilatation. GALLBLADDER AND BILE DUCTS: Unremarkable. PANCREAS: Unremarkable. No gross lesion or ductal dilatation. SPLEEN: Unremarkable. ADRENALS: Unremarkable. No mass. KIDNEYS AND URETERS: Stable 7 mm lucency lower pole right kidney. No hydronephrosis bilaterally. Left kidney unremarkable appearing. VASCULATURE: Unremarkable. No aortic aneurysm. No aortic atherosclerotic calcification or mural plaque present. BOWEL: Large small bowel appear collapsed in general with limited retained fecal material scattered in a few large-bowel segments. The ascending colon is collapse in a pattern that makes it difficult to exclude potential mural thickening and therefore ascending segmental colitis. There is no pericolic reaction however. Clinically correlate further. APPENDIX: Normal appendix. PERITONEUM: Unremarkable. No free fluid. No free air. LYMPH NODES: Unremarkable. No enlarged lymph nodes. BLADDER: Distended but otherwise unremarkable appearing. REPRODUCTIVE: Prostate gland is enlarged to 5.7 x 4.5 cm. BONES: No acute fracture. OTHER FINDINGS: None. IMPRESSION: 1. Remarkable for pancreas. Pancreatitis is not excluded clinically and further clinical correlation is recommended. 2. Diffusely collapsed large and small bowel. No bowel obstruction appreciated. Mural thickening is difficult to exclude at the ascending colon and although segmental colitis is not favored, it is difficult to completely exclude. 3. Enlarged prostate gland again evident.
--- NOTE | 2018-01-19 16:44 | US ---
Date of service: 01/19/2018 HISTORY: vomiting pacnreatitis COMPARISON: CT abdomen and pelvis performed the same day. TECHNIQUE: Sonographic evaluation of the right upper quadrant of the abdomen. FINDINGS: LIVER: Measures 11.3 cm in length. Normal echogenicity of the liver parenchyma. No mass. No intrahepatic bile duct dilatation. GALLBLADDER: There are no gallstones, wall thickening or pericholecystic fluid. The sonographic Welsh's sign is negative. COMMON BILE DUCT: Measures 4.4 mm. No stones. No dilatation. PANCREAS: Unremarkable as visualized. No mass. No ductal dilatation. RIGHT KIDNEY: Measures 10.2 cm in length. There is diffuse increased cortical echogenicity and loss of corticomedullary differentiation. There is small perinephric fluid. There is a 9 x 4 x 6 mm simple cortical cyst in the interpolar region AORTA: No aneurysmal dilatation. IVC: Unremarkable. OTHER FINDINGS: None . IMPRESSION: No cholelithiasis or biliary dilatation. Mild diffuse increased cortical echogenicity in the kidney with loss of corticomedullary differentiation and small amount of perinephric fluid could represent edema and reactive changes secondary to pancreatitis.
[2018-01-19 17:15] LABS: BARBITURATES, UR NEGATIVE (NEGATIVE); BENZODIAZEPINES, UR NEGATIVE (NEGATIVE); OPIATES, UR NEGATIVE (NEGATIVE); PHENCYCLIDINE, UR NEGATIVE (NEGATIVE)
[2018-01-19] MEDS: Lactated Ringer's 1,000 ML IV SCH (17:30)
[2018-01-19] MEDS: Insulin Detemir 100 Units/ml Inj SC SCH (22:18)
[2018-01-20] MEDS: Lactated Ringer's 1,000 ML IV SCH ×4 (03:11→14:53)
[2018-01-20 06:34] LABS: HEMOGLOBIN 12.7 g/dL (12.0-18.0); MEAN CELL VOLUME 86.7 fl (80.0-94.0); MEAN CORPUSCULAR HEMOGLOBIN 30.3 pg (27.0-31.0); RBC 4.19 Mil/uL (4.40-5.90)
[2018-01-20 06:48] LABS: ALB/GLOB RATIO 1.6 (1.0-2.1); ALBUMIN 4.9 g/dL (3.5-5.0); ALT/SGPT 17 U/L (21-72); AST/SGOT 24 U/L (17-59); BLOOD UREA NITROGEN 8 mg/dl (9-20); CALCIUM 10.1 mg/dL (8.4-10.2); GFR NON-AFRICAN AMERICAN > 60; LIPASE 125 U/L (23-300)
[2018-01-20] MEDS: Enoxaparin 40 mg Syringe SC SCH (08:55)
[2018-01-20] MEDS: Insulin Lispro (humaLOG) 100 Units/ml Inj SC SCH ×4 (09:02→22:05)
--- NOTE | 2018-01-20 11:18 | CP.PCM.PN ---
Subjective - Date & Time of Evaluation Date of Evaluation: 01/20/18 Time of Evaluation: 10:49 - Subjective Subjective: pt seen and evaluated at bedside this morning. No acute events overnight. Several episodes of NBNB emesis during the night and 3 episodes of NBNB emesis this morning. Afebrile. No diarrhea. No abdominal pain. Reports feeling otherwise ok but still feels like he can vomit at any moment. No other complaints/concerns. Objective - Vital Signs/Intake and Output Vital Signs (last 24 hours): Temp Pulse Resp BP Pulse Ox 98.1 F 85 20 170/90 H 98 01/20/18 09:11 01/20/18 09:11 01/20/18 09:11 01/20/18 09:11 01/20/18 09:11 - Medications Medications: Current Medications Enoxaparin Sodium (Lovenox) 40 mg SC DAILY [facility]; Protocol Last Admin: 01/20/18 08:55 Dose: 40 mg Hydralazine HCl (Apresoline) 20 mg IV Q6 PRN PRN Reason: Systolic Blood Pressure Lactated Ringer's (Lactated Ringer's) 1,000 mls @ 100 mls/hr IV .Q10H [facility] Last Admin: 01/20/18 04:03 Dose: 100 mls/hr Insulin Detemir (Levemir) 8 units SC [facility] Last Admin: 01/19/18 22:18 Dose: 8 unit Insulin Human Lispro (Humalog) 0 units SC ACCU-CHECK [facility]; Protocol Last Admin: 01/20/18 09:02 Dose: Not Given Metoclopramide HCl (Reglan) 10 mg IVP Q6 [facility] Last Admin: 01/20/18 09:00 Dose: 10 mg Pantoprazole Sodium (Protonix Inj) 40 mg IVP DAILY [facility] Last Admin: 01/20/18 08:54 Dose: 40 mg - Labs Labs: 01/20/18 05:40 01/20/18 05:40 - Constitutional Appears: Non-toxic, No Acute Distress - Head Exam Head Exam: ATRAUMATIC, NORMOCEPHALIC - Eye Exam Eye Exam: EOMI, PERRL. absent: Nystagmus, Scleral icterus - ENT Exam ENT Exam: Mucous Membranes Moist - Respiratory Exam Respiratory Exam: Clear to Ausculation Bilateral, NORMAL BREATHING PATTERN. absent: Accessory Muscle Use, Rales, Rhonchi, Wheezes - Cardiovascular Exam Cardiovascular Exam: REGULAR RHYTHM, RRR, +S1, +S2. absent: Tachycardia, JVD, Rubs, Murmur - GI/Abdominal Exam GI & Abdominal Exam: Soft, Normal Bowel Sounds. absent: Distended, Firm, Guarding, Rigid, Tenderness - Extremities Exam Extremities Exam: Normal Capillary Refill, Normal Inspection. absent: Calf Tenderness, Pedal Edema - Neurological Exam Neurological Exam: Alert, Awake, Oriented x3 - Psychiatric Exam Psychiatric exam: Normal Affect, Normal Mood - Skin Skin Exam: Dry Assessment and Plan - Assessment and Plan (Free Text) Assessment: 52 year old male with PMHx of IDDM2, gastritis, hypertension and HLD admitted for Gastroparesis. Plan: 1. Gastroparesis secondary to IDDM2 -Admitted to Med/Surg -NPO -still vomiting -advance diet as tolerated -Reglan 10 mg Q6H CHRISTY IV -Pantoprazole 40mg IVP daily -fluids switched to 0.45 NS + 20meq K+ @ 100mls/hr -GI consult pending 2) Elevated Lipase -resolved -BISAP score: 0 -no abdominal pain -NPO -advance diet as tolerated -ABD CT: with unremarkable pancreas on evaluation -IV Reglan CHRISTY -GI Consult pending 3) Hypokalemia -3.1 today -K-runs x 4 -0.45 NS + 20meq K+ -f/u AM BMP 4) IDDM type 2 -Hypoglycemia protocol -ISS- Medium -Monitor Glucose levels. -Home medications held due to NPO status. -Levemir 8U HS 5) Hypertension -uncontrolled -s/p 1 dose vasotec IV 2.5 PRN -start Vasotec 1.25mg IV Q6H -Monitor vital signs. 6) DVT prophylaxis: -SCD's -Lovenox 40mg SC QD 7) Foreign Bodies -PICC RUE 8). Code Status: - Full code
[2018-01-20] MEDS: Potassium CL 10 MEQ/50 ML 50 ML IVPB SCH ×4 (12:11→15:44)
[2018-01-20] MEDS ORDERED: Enalaprilat 2.5 MG/2 ML IVP ONE (13:12)
[2018-01-20 14:21] VITALS: BMI 22.7
[2018-01-20] MEDS: EnalaprilAT 1.25 mg/ml Inj IV SCH ×2 (16:23→22:04)
[2018-01-20] MEDS: Potassium Chloride 20 MEQ in Sodium Chloride 0.45% 1,000 ML IV SCH (17:41)
[2018-01-20] MEDS ORDERED: EnalaprilAT 1.25 mg/ml Inj IVP STA (18:15)
[2018-01-20] MEDS: Insulin Detemir 100 Units/ml Inj SC SCH (22:07)
[2018-01-21] MEDS: Potassium Chloride 20 MEQ in Sodium Chloride 0.45% 1,000 ML IV SCH ×2 (02:10→03:49)
[2018-01-21] MEDS: EnalaprilAT 1.25 mg/ml Inj IV SCH (04:06)
[2018-01-21] MEDS ORDERED: Labetalol 5mg/ml (4ml) IVP STA (05:56)
[2018-01-21 06:39] LABS: HEMOGLOBIN 13.5 g/dL (12.0-18.0); MEAN CELL VOLUME 87.1 fl (80.0-94.0); MEAN CORPUSCULAR HEMOGLOBIN 29.8 pg (27.0-31.0); MEAN CORPUSCULAR HGB CONC 34.2 g/dL (33.0-37.0); RBC 4.53 Mil/uL (4.40-5.90); RED CELL DISTRIBUTION WIDTH 12.9 % (11.5-14.5); WHITE BLOOD COUNT 11.2 K/uL (4.8-10.8)
[2018-01-21 06:56] LABS: ALB/GLOB RATIO 1.6 (1.0-2.1); ALT/SGPT 28 U/L (21-72); AST/SGOT 29 U/L (17-59); BLOOD UREA NITROGEN 13 mg/dl (9-20); CALCIUM 10.1 mg/dL (8.4-10.2); GFR NON-AFRICAN AMERICAN > 60
[2018-01-21] MEDS: Insulin Lispro (humaLOG) 100 Units/ml Inj SC SCH ×4 (07:50→22:21)
--- NOTE | 2018-01-21 08:23 | CON ---
DATE: 01/19/2018 REFERRING PHYSICIAN: . REASON FOR CONSULTATION: Gastroparesis, nausea, and vomiting. HISTORY OF PRESENT ILLNESS: This is a 52-year-old male with a history of diabetes, gastritis, hypertension, hyperlipidemia, peripheral neuropathy who came in with nausea and vomiting after having sausage and eggs. Has no vomiting at this point and has breathing discomfort. Otherwise lying in bed comfortably, in no apparent distress. PAST MEDICAL HISTORY: As above. PAST SURGICAL HISTORY: As above. MEDICATIONS: Have been reviewed. REVIEW OF SYSTEMS: All other systems have been reviewed and negative apart from the HPI. PHYSICAL EXAMINATION: GENERAL: This is a pleasant middle-aged man, lying comfortably in bed. VITAL SIGNS: Here in the hospital, grossly unremarkable. HEENT: Head: Normocephalic and atraumatic. Eyes: Pupils are equally reactive to light bilaterally. No conjunctival pallor or icterus. NECK: Supple, normal range of motion. No lymphadenopathy appreciated. LUNGS: Coarse breath sounds bilaterally. HEART: S1 and S2. Regular rate and rhythm. No murmurs appreciated. ABDOMEN: Soft. Some discomfort. No rebound. No guarding. RECTAL: Deferred. EXTREMITIES: Pulses present bilaterally. SKIN: Warm, dry, and intact. NEUROLOGIC: A and O x 3. LABORATORY DATA: Labs and radiology have been reviewed. WBC 9.3, hemoglobin 12.3. Sugars are 200 plus. AST and ALT essentially unremarkable. Lipase is . Urine tox is positive for cannabinoids. Abdominal CT shows unremarkable pancreas, diffuse collapsed partial small bowel, mural thickening, possible colitis, unable to exclude. Abdominal ultrasound as well was ordered. No cholelithiasis. ASSESSMENT AND PLAN: This is a 52-year-old man male with gastroparesis, nausea, vomiting, and possible pancreatitis. intravenous hydration as well as Zofran for now to control. Pepcid twice a day. If advance diet as tolerated. Discharge planning when stable. Thank you for the consult. Russ Powell MD/ PhD cc:
[2018-01-21] MEDS: Enoxaparin 40 mg Syringe SC SCH (08:47)
[2018-01-21] MEDS ORDERED: AMLODIPINE BESYLATE PO SCH (09:00)
[2018-01-21] MEDS ORDERED: BENAZEPRIL PO SCH (09:00)
--- NOTE | 2018-01-21 09:16 | CP.PCM.PN ---
Subjective - Date & Time of Evaluation Date of Evaluation: 01/20/18 Time of Evaluation: 13:15 - Subjective Subjective: no overnight events Objective - Vital Signs/Intake and Output Vital Signs (last 24 hours): Temp Pulse Resp BP Pulse Ox 98.3 F 77 19 200/90 H 99 01/21/18 08:09 01/21/18 08:47 01/21/18 08:09 01/21/18 08:47 01/21/18 08:09 - Medications Medications: Current Medications Aspirin (Ecotrin) 81 mg PO DAILY [facility] Atorvastatin Calcium (Lipitor) 10 mg PO HS [facility] Enoxaparin Sodium (Lovenox) 40 mg SC DAILY [facility]; Protocol Last Admin: 01/21/18 08:47 Dose: 40 mg Gabapentin (Neurontin) 600 mg PO HS [facility] Home Med (Amlodipine Besylate/Benazepril [Lotrel 10-40 Mg Capsule]) 1 cap PO DAILY [facility] Insulin Detemir (Levemir) 8 units SC HS [facility] Last Admin: 01/20/18 22:07 Dose: 8 unit Insulin Human Lispro (Humalog) 0 units SC ACCU-CHECK [facility]; Protocol Last Admin: 01/21/18 07:50 Dose: Not Given Metoclopramide HCl (Reglan) 10 mg IVP Q6 [facility] Last Admin: 01/21/18 04:06 Dose: 10 mg Pantoprazole Sodium (Protonix Inj) 40 mg IVP DAILY [facility] Last Admin: 01/21/18 08:48 Dose: 40 mg - Labs Labs: 01/21/18 06:20 01/21/18 06:20 - Head Exam Head Exam: NORMOCEPHALIC - ENT Exam ENT Exam: Normal Exam - Neck Exam Neck Exam: Normal Inspection - Respiratory Exam Respiratory Exam: Clear to Ausculation Bilateral, NORMAL BREATHING PATTERN - Cardiovascular Exam Cardiovascular Exam: REGULAR RHYTHM - GI/Abdominal Exam GI & Abdominal Exam: Soft, Tenderness, Normal Bowel Sounds Assessment and Plan - Assessment and Plan (Free Text) Assessment: 52 yo male with n/v/abd pain doing better trend labs ADAT
--- NOTE | 2018-01-21 10:04 | CP.PCM.PN ---
Subjective - Date & Time of Evaluation Date of Evaluation: 01/21/18 Time of Evaluation: 10:01 - Subjective Subjective: no overnight events Objective - Vital Signs/Intake and Output Vital Signs (last 24 hours): Temp Pulse Resp BP Pulse Ox 98.3 F 77 19 200/90 H 99 01/21/18 08:09 01/21/18 08:47 01/21/18 08:09 01/21/18 08:47 01/21/18 08:09 - Medications Medications: Current Medications Amlodipine Besylate (Norvasc) 10 mg PO DAILY [facility] Aspirin (Ecotrin) 81 mg PO DAILY [facility] Atorvastatin Calcium (Lipitor) 10 mg PO HS [facility] Enoxaparin Sodium (Lovenox) 40 mg SC DAILY [facility]; Protocol Last Admin: 01/21/18 08:47 Dose: 40 mg Gabapentin (Neurontin) 600 mg PO HS [facility] Insulin Detemir (Levemir) 8 units SC HS [facility] Last Admin: 01/20/18 22:07 Dose: 8 unit Insulin Human Lispro (Humalog) 0 units SC ACCU-CHECK [facility]; Protocol Last Admin: 01/21/18 07:50 Dose: Not Given Lisinopril (Zestril) 40 mg PO DAILY [facility] Metoclopramide HCl (Reglan) 10 mg IVP Q6 [facility] Last Admin: 01/21/18 04:06 Dose: 10 mg Pantoprazole Sodium (Protonix Inj) 40 mg IVP DAILY [facility] Last Admin: 01/21/18 08:48 Dose: 40 mg - Labs Labs: 01/21/18 06:20 01/21/18 06:20 - Head Exam Head Exam: NORMOCEPHALIC - Neck Exam Neck Exam: Normal Inspection - Respiratory Exam Respiratory Exam: Clear to Ausculation Bilateral, NORMAL BREATHING PATTERN - Cardiovascular Exam Cardiovascular Exam: REGULAR RHYTHM - GI/Abdominal Exam GI & Abdominal Exam: Soft, Normal Bowel Sounds Assessment and Plan - Assessment and Plan (Free Text) Assessment: 52 yo male with n/v doing better zofran +/- reglan ADAT
--- NOTE | 2018-01-21 10:10 | CP.PCM.PN ---
Subjective - Date & Time of Evaluation Date of Evaluation: 01/21/18 Time of Evaluation: 10:10 - Subjective Subjective: pt seen and evaluated. No acute events overnight. 7 episodes of small quantity, NBNB emesis overnight as per pt. Last episode of vomiting approx 4am but pt reports still feeling nauseous and that he can vomit at any time. BP remains david vated and uncontrolled. No complaints. Denies any headaches, chest pain, changes in vision, SOB/Palpitations, D/C, urinary symptoms. Objective - Vital Signs/Intake and Output Vital Signs (last 24 hours): Temp Pulse Resp BP Pulse Ox 98.3 F 77 19 200/90 H 99 01/21/18 08:09 01/21/18 08:47 01/21/18 08:09 01/21/18 08:47 01/21/18 08:09 - Medications Medications: Current Medications Amlodipine Besylate (Norvasc) 10 mg PO DAILY [facility] Aspirin (Ecotrin) 81 mg PO DAILY [facility] Atorvastatin Calcium (Lipitor) 10 mg PO HS [facility] Enoxaparin Sodium (Lovenox) 40 mg SC DAILY [facility]; Protocol Last Admin: 01/21/18 08:47 Dose: 40 mg Gabapentin (Neurontin) 600 mg PO HS [facility] Insulin Detemir (Levemir) 8 units SC HS [facility] Last Admin: 01/20/18 22:07 Dose: 8 unit Insulin Human Lispro (Humalog) 0 units SC ACCU-CHECK [facility]; Protocol Last Admin: 01/21/18 07:50 Dose: Not Given Lisinopril (Zestril) 40 mg PO DAILY [facility] Metoclopramide HCl (Reglan) 10 mg IVP Q6 [facility] Last Admin: 01/21/18 04:06 Dose: 10 mg Pantoprazole Sodium (Protonix Inj) 40 mg IVP DAILY [facility] Last Admin: 01/21/18 08:48 Dose: 40 mg - Labs Labs: 01/21/18 06:20 01/21/18 06:20 - Constitutional Appears: Non-toxic, No Acute Distress - Head Exam Head Exam: ATRAUMATIC - Eye Exam Eye Exam: EOMI, PERRL. absent: Nystagmus, Scleral icterus - Neck Exam Neck Exam: Full ROM. absent: Meningismus - Respiratory Exam Respiratory Exam: Clear to Ausculation Bilateral, NORMAL BREATHING PATTERN. absent: Rales, Rhonchi, Wheezes, Respiratory Distress - Cardiovascular Exam Cardiovascular Exam: REGULAR RHYTHM, RRR, +S1, +S2. absent: Tachycardia, JVD, Rubs, Murmur - GI/Abdominal Exam GI & Abdominal Exam: Soft, Normal Bowel Sounds. absent: Distended, Firm, Guarding, Rigid, Tenderness - Neurological Exam Neurological Exam: Alert, Awake, Oriented x3 - Psychiatric Exam Psychiatric exam: Normal Affect, Normal Mood Assessment and Plan - Assessment and Plan (Free Text) Assessment: 52 year old male with PMHx of IDDM2, gastritis, hypertension and HLD admitted for Gastroparesis. Plan: 1. Gastroparesis secondary to IDDM2 -Admitted to Med/Surg -CLD -advance diet as tolerated -Reglan 10 mg Q6H CHRISTY IV -zofran added per GI recs -Pantoprazole 40mg IVP daily -fluids switched to 0.45 NS + 20meq K+ @ 100mls/hr, hold as diet advances. -diabetic gastroparesis diet, start bland, low fat, small portions 2) Elevated Lipase -resolved -BISAP score: 0 -no abdominal pain -advance diet as tolerated -ABD CT: with unremarkable pancreas on evaluation -IV Reglan CHRISTY -Zofran PRN 3) Hypokalemia -resolved -s/p K-runs x 4 4) IDDM type 2 -Lispro correction scale-Medium -Monitor Glucose levels. -Levemir 8U HS 5) Hypertension -uncontrolled -elevation most likely secondary to repeat vomiting/wrenching episodes -resume home meds -amlodipine 10mg, lisonpril 40mg -Monitor vital signs. 6) DVT prophylaxis: -SCD's -Lovenox 40mg SC QD 7) Foreign Bodies -PICC RUE 8). Code Status: - Full code
--- NOTE | 2018-01-21 11:29 | VASCULAR ---
Procedure: Ultrasound and fluoroscopically placed Right upper extremity PICC. Clinical indication: Long-term IV antibiotics. Technique: The relative risks and indications of the procedure were explained to the patient and written informed consent obtained. The patient was placed supine on the angiographic table and the right arm prepped and draped in the usual sterile fashion. A tourniquet was applied to the right axilla. 1% lidocaine was used to anesthetize the skin and soft tissues at the puncture site above the elbow. The right brachial vein was punctured under direct ultrasound guidance with a micropuncture set. A permanent image was stored. A 0.018 guidewire was advanced centrally and used to measure the length to the SVC/RA junction. A 4 Malagasy single-lumen PICC, size 40 cm, was advanced to the SVC/RA junction under fluoroscopic guidance. The catheter was flushed and secured. The patient tolerated the procedure well. Postprocedure chest image was obtained to ensure location of the catheter tip at the SVC right atrial junction. Impression: Ultrasound and fluoroscopically placed right upper extremity PICC. A 4 Malagasy single-lumen PICC, size 40 cm was advanced to the SVC/RA junction. PICC ready for use.
[2018-01-21] MEDS: Insulin Detemir 100 Units/ml Inj SC SCH (22:20)
[2018-01-22 06:29] LABS: HEMOGLOBIN 14.1 g/dL (12.0-18.0); MEAN CELL VOLUME 89.2 fl (80.0-94.0); MEAN CORPUSCULAR HGB CONC 33.6 g/dL (33.0-37.0); RBC 4.7 Mil/uL (4.40-5.90); WHITE BLOOD COUNT 11.2 K/uL (4.8-10.8)
[2018-01-22 06:59] LABS: BLOOD UREA NITROGEN 19 mg/dl (9-20); CALCIUM 10.1 mg/dL (8.4-10.2); GFR NON-AFRICAN AMERICAN > 60
[2018-01-22 08:07] VITALS: RESP 19; TEMP 97.9; O2SAT 99
[2018-01-22] MEDS ORDERED: Pantoprazole 40 mg EC Tab PO SCH (09:00)
[2018-01-22] MEDS ORDERED: Potassium Chloride 20 mEq/15 ml LIQ UD PO ONE (09:19)
[2018-01-22] MEDS: Enoxaparin 40 mg Syringe SC SCH (09:35)
[2018-01-22] MEDS: Insulin Lispro (humaLOG) 100 Units/ml Inj SC SCH (09:38)
[2018-01-22 11:09] VITALS: BP 167/92; PULSE 98
--- NOTE | 2018-01-22 11:40 | CP.PCM.DIS ---
Provider - Provider Date of Admission: 01/19/18 10:17 Attending physician: Audrey Larson MD Primary care physician: Audrey Larson MD Time Spent in preparation of Discharge (in minutes): 30 Diagnosis - Discharge Diagnosis (1) Gastroparesis Status: Acute (2) Intractable vomiting with nausea Status: Acute Hospital Course - Lab Results Lab Results: Most Recent Lab Values WBC 11.2 K/uL (4.8-10.8) H 01/22/18 05:40 RBC 4.70 Mil/uL (4.40-5.90) 01/22/18 05:40 Hgb 14.1 g/dL (12.0-18.0) 01/22/18 05:40 Hct 41.9 % (35.0-51.0) 01/22/18 05:40 MCV 89.2 fl (80.0-94.0) D 01/22/18 05:40 MCH 30.0 pg (27.0-31.0) 01/22/18 05:40 MCHC 33.6 g/dL (33.0-37.0) 01/22/18 05:40 RDW 13.0 % (11.5-14.5) 01/22/18 05:40 Plt Count 244 K/uL (130-400) 01/22/18 05:40 MPV 7.8 fl (7.2-11.7) 01/19/18 09:01 Neut % (Auto) 82.9 % (50.0-75.0) H 01/19/18 09:01 Lymph % (Auto) 11.1 % (20.0-40.0) L 01/19/18 09:01 [place] % (Auto) 3.4 % (0.0-10.0) 01/19/18 09:01 Eos % (Auto) 2.2 % (0.0-4.0) 01/19/18 09:01 Baso % (Auto) 0.4 % (0.0-2.0) 01/19/18 09:01 Neut # (Auto) 7.6 K/uL (1.8-7.0) H 01/19/18 09:01 Lymph # (Auto) 1.0 K/uL (1.0-4.3) 01/19/18 09:01 [place] # (Auto) 0.3 K/uL (0.0-0.8) 01/19/18 09:01 Eos # (Auto) 0.2 K/uL (0.0-0.7) 01/19/18 09:01 Baso # (Auto) 0.0 K/uL (0.0-0.2) 01/19/18 09:01 Sodium 136 mmol/l (132-148) 01/22/18 05:40 Potassium 3.1 MMOL/L (3.6-5.0) L 01/22/18 05:40 Chloride 95 mmol/L (98-107) L 01/22/18 05:40 Carbon Dioxide 29 mmol/L (22-30) 01/22/18 05:40 Anion Gap 15 (10-20) 01/22/18 05:40 BUN 19 mg/dl (9-20) 01/22/18 05:40 Creatinine 1.0 mg/dl (0.8-1.5) 01/22/18 05:40 Est GFR ( Amer) > 60 01/22/18 05:40 Est GFR (Non-Af Amer) > 60 01/22/18 05:40 POC Glucose (mg/dL) 176 mg/dL (65-110) H 01/22/18 10:53 Random Glucose 115 mg/dL (75-110) H 01/22/18 05:40 Calcium 10.1 mg/dL (8.4-10.2) 01/22/18 05:40 Total Bilirubin 1.2 mg/dl (0.2-1.3) 01/21/18 06:20 AST 29 U/L (17-59) 01/21/18 06:20 ALT 28 U/L (21-72) 01/21/18 06:20 Alkaline Phosphatase 73 U/L (38-126) 01/21/18 06:20 Total Protein 8.2 G/DL (6.3-8.2) 01/21/18 06:20 Albumin 5.0 g/dL (3.5-5.0) 01/21/18 06:20 Globulin 3.1 gm/dL (2.2-3.9) 01/21/18 06:20 Albumin/Globulin Ratio 1.6 (1.0-2.1) 01/21/18 06:20 Lipase 125 U/L (23-300) 01/20/18 05:40 Urine Opiates Screen Negative (NEGATIVE) 01/19/18 16:38 Urine Methadone Screen Negative (NEGATIVE) 01/19/18 16:38 Ur Barbiturates Screen Negative (NEGATIVE) 01/19/18 16:38 Ur Phencyclidine Scrn Negative (NEGATIVE) 01/19/18 16:38 Ur Amphetamines Screen Negative (NEGATIVE) 01/19/18 16:38 U Benzodiazepines Scrn Negative (NEGATIVE) 01/19/18 16:38 U Oth Cocaine Metabols Negative (NEGATIVE) 01/19/18 16:38 U Cannabinoids Screen Positive (NEGATIVE) H 01/19/18 16:38 Alcohol, Quantitative < 10 mg/dl (0-10) 01/19/18 17:47 - Hospital Course Hospital Course: 52 y/o male with a PMHx of IDDM2 and gastroparesis was admitted for intractable vomiting secondary to gastroparesis. Pt was made NPO, hydrated with IV fluids, and put on a standing order of reglan 10mg every 6 hours. GI was consulted, whom added zofran to the regiment as well as protonix. Abdominal CT and u/s was unremarkable for any acute pathology. Pt also found to have mild electrolyte derrangment which too was corrected. Diet was advanced as tolerated. By end of admission pt was tolerating full diet again. After an uneventful hospital course , the pt was discharged in stable condition with a follow up appt with his PMD on feb 16, 2018. Pt was also extensively counseled on proper diet, as well as hand out of ideal gastroparesis diet provided. Meds on DC: -reglan 10mg PO PRN nausea/vomiting Discharge Exam - Head Exam Head Exam: ATRAUMATIC - Eye Exam Eye Exam: EOMI, PERRL. absent: Nystagmus, Scleral icterus - ENT Exam ENT Exam: Mucous Membranes Moist - Respiratory Exam Respiratory Exam: Clear to PA & Lateral, NORMAL BREATHING PATTERN, UNREMARKABLE. absent: Accessory Muscle Use, Rales, Rhonchi, Wheezes, Respiratory Distress - Cardiovascular Exam Cardiovascular Exam: REGULAR RHYTHM, RRR, +S1, +S2. absent: Tachycardia, JVD, Rubs, Systolic Murmur - GI/Abdominal Exam GI & Abdominal Exam: Normal Bowel Sounds, Soft, Unremarkable. absent: Distended, Firm, Guarding, Rigid, Tenderness - Extremities Exam Extremities exam: normal capillary refill, normal inspection, pedal pulses present - Neurological Exam Neurological exam: Alert, CN II-XII Intact, Normal Gait, Oriented x3 - Psychiatric Exam Psychiatric exam: Normal Affect, Normal Mood - Skin Skin Exam: Intact, Normal Color, Warm Discharge Plan - Discharge Medications Prescriptions: Metoclopramide HCl [Reglan] 10 mg PO PRN PRN #30 tablet PRN Reason: Nausea/Vomiting - Follow Up Plan Condition: STABLE Disposition: HOME/ ROUTINE Instructions: How to Wash Your Hands Properly, Gastroparesis (Delayed Gastric Emptying) (DC), Pancreatitis (DC) Additional Instructions: follow up appointment with Dr Audrey Larson 02/16/18 Referrals: Audrey Larson MD [Primary Care Provider] - Russ Powell MD, PhD [Staff Provider] -
== END 2018-01-22 12:14 | disposition home or self-care (01) | DRG 74 ==
LOC: SUPCPDRO 07:45 → H.ER 07:45 → H.ERHOLD 10:17 → H.MEDSURG1 18:24
PROVIDERS: ADMIT Family Medicine; ATTEND Family Medicine
PROC: 02HV33Z Insertion of Infusion Device into Superior Vena Cava, Percutaneous Approach (ICD-10-PCS; principal; 2018-01-19)
PROC: B548ZZA Ultrasonography of Superior Vena Cava, Guidance (ICD-10-PCS; 2018-01-19)
PROC: 3E04329 Introduction of Other Anti-infective into Central Vein, Percutaneous Approach (ICD-10-PCS; 2018-01-19)
DX: E11.43 Type 2 diabetes mellitus with diabetic autonomic (poly)neuropathy (principal); K31.84 Gastroparesis; E87.6 Hypokalemia; E11.42 Type 2 diabetes mellitus with diabetic polyneuropathy; I10 Essential (primary) hypertension; E78.00 Pure hypercholesterolemia, unspecified; E78.5 Hyperlipidemia, unspecified; J45.909 Unspecified asthma, uncomplicated; K29.70 Gastritis, unspecified, without bleeding; M19.90 Unspecified osteoarthritis, unspecified site; Z79.4 Long term (current) use of insulin; Z88.0 Allergy status to penicillin

== ENCOUNTER 2018-04-13 08:03 | Emergency (ER) | payer OTHER ==
[2018-04-13 08:10] VITALS: RESP 18
[2018-04-13 08:11] VITALS: BMI 23.5
[2018-04-13] MEDS ORDERED: Sodium Chloride 0.9% 1,000 ML IV STA (08:33)
--- NOTE | 2018-04-13 09:01 | ED PDOC ---
HPI:Nausea, Vomiting, Diarrhea Time Seen by Provider: 04/13/18 08:22 Chief Complaint (Nursing): GI Problem Chief Complaint (Provider): Vomiting History Per: Patient History/Exam Limitations: no limitations Onset/Duration Of Symptoms: Hrs (at 9am today) Current Symptoms Are (Timing): Still Present Associated Symptoms: denies: Fever, Chills, Nausea Additional Complaint(s): 52 year old male with PMHx of gastritis, diabetes and gastroparesis presents to the ED complaining of vomiting onset today morning. Patient reports of 3 to 4 episodes of non-bloody vomit. He states he had a scheduled appointment with a gastrointestinal specialist today at 9AM in [place]. Patient has been admitted in the hospital for the same symptoms in the past and he is non- compliant with his medications. Otherwise, he denies abdominal pain, diarrhea, nausea, fever, chills or chest pain. PMD: Audrey Larson GI: Non [facility] provider in [place], [place] Past Medical History Reviewed: Historical Data, Nursing Documentation, Vital Signs Vital Signs: Last Vital Signs Temp 97 F L 04/13/18 08:09 Pulse 93 H 04/13/18 08:09 Resp 18 04/13/18 08:09 BP 167/80 H 04/13/18 08:09 Pulse Ox 100 04/13/18 08:09 - Medical History PMH: Arthritis, Asthma, Diabetes, Gastritis (H Pylori), HTN, Hypercholesterolemia Denies: Atrial Fibrillation, CHF, HIV, Peripheral Edema, Chronic Kidney Disease - Surgical History Surgical History: Endoscopy - Family History Family History: States: Unknown Family Hx, Diabetes, Hypertension - Social History Current smoker - smoking cessation education provided: No Alcohol: None Drugs: Denies - Home Medications Home Medications: Ambulatory Orders Medication Instructions Recorded Amlodipine Besylate/Benazepril 1 cap PO DAILY 01/19/18 [Lotrel 10-40 mg Capsule] Aspirin [Ecotrin] 81 mg PO DAILY 01/19/18 Atorvastatin [Lipitor] 10 mg PO HS 01/19/18 Gabapentin [Neurontin] 600 mg PO HS 01/19/18 Insulin Glargine,Hum.rec.anlog 24 unit SC HS 01/19/18 [Lantus Solostar] Insulin Lispro [humALOG] 4 unit SC AC 01/19/18 MetFORMIN [glucoPHAGE] 1,000 mg PO BID 01/19/18 Omeprazole 20 mg PO DAILY 01/19/18 Ondansetron [Zofran Odt] 4 mg PO Q8 PRN 01/19/18 Metoclopramide HCl [Reglan] 10 mg PO PRN PRN #30 tablet 01/22/18 Metoclopramide [Reglan] 10 mg PO TID PRN #20 tab 04/13/18 Ondansetron ODT [Zofran ODT] 4 mg PO Q8 PRN #12 odt 04/13/18 - Allergies Allergies/Adverse Reactions: Allergies Allergy/AdvReac Type Severity Reaction Status Date / Time Penicillins Allergy SWELLING Verified 04/13/18 08:15 strawberry Allergy SWELLING Verified 04/13/18 08:15 Review of Systems ROS Statement: Except As Marked, All Systems Reviewed And Found Negative Constitutional: Negative for: Fever, Chills Cardiovascular: Negative for: Chest Pain Gastrointestinal: Positive for: Vomiting (non-bloody). Negative for: Nausea, Abdominal Pain, Diarrhea Genitourinary Male: Negative for: Dysuria, Frequency, Incontinence Physical Exam - Reviewed Nursing Documentation Reviewed: Yes Vital Signs Reviewed: Yes - Physical Exam Appears: Positive for: Well, Non-toxic, No Acute Distress Head Exam: Positive for: ATRAUMATIC, NORMAL INSPECTION, NORMOCEPHALIC Skin: Positive for: Normal Color, Warm, Dry. Negative for: Rash Eye Exam: Positive for: EOMI, Normal appearance, PERRL ENT: Positive for: Normal ENT Inspection Neck: Positive for: Normal, Painless ROM. Negative for: Supple Cardiovascular/Chest: Positive for: Regular Rate, Rhythm. Negative for: Murmur Respiratory: Positive for: Normal Breath Sounds. Negative for: Decreased Breath Sounds, Wheezing, Respiratory Distress Gastrointestinal/Abdominal: Positive for: Normal Exam, Soft. Negative for: Tenderness, Guarding, Rebound Back: Positive for: Normal Inspection Extremity: Positive for: Normal ROM. Negative for: Tenderness, Pedal Edema, Deformity Neurologic/Psych: Positive for: Alert, Oriented (x3). Negative for: Motor/Sensory Deficits - Laboratory Results Result Diagrams: 04/13/18 09:40 04/13/18 09:03 - ECG O2 Sat by Pulse Oximetry: 100 (RA) Pulse Ox Interpretation: Normal - Progress Re-evaluation Time: 11:37 Condition: Re-examined, Improved Medical Decision Making Medical Decision Making: Time: 832 Initial Impression: vomiting Differential Diagnosis: gastritis and gastroparesis Initial Plan: --CMP --Drug screen --Lipase --ED Urine dipstick --CBC w/ Differential --Normal Saline 1000 mls/hr --Zofran Inj 4mg --Reevaluation Scribe Attestation: Documented by Jessica Hernandez acting as a scribe for Dino Ferris MD Provider Scribe Attestation: All medical record entries made by the Scribe were at my direction and personally dictated by me. I have reviewed the chart and agree that the record accurately reflects my personal performance of the history, physical exam, medical decision making, and the department course for this patient. I have also personally directed, reviewed, and agree with the discharge instructions and disposition. Disposition - Clinical Impression Clinical Impression: Vomiting, Gastroparesis - Patient ED Disposition Is Patient to be Admitted: No Doctor Will See Patient In The: Office Counseled Patient/Family Regarding: Studies Performed, Diagnosis, Need For Followup - Disposition Referrals: Audrey Larson MD [Family Provider] - Disposition: Routine/Home Disposition Time: 11:38 Condition: GOOD Additional Instructions: KERI BECERRIL, thank you for letting us take care of you today. Your provider was Dino Ferris MD and you were treated for VOMITING. The emergency medical care you received today was directed at your acute symptoms. If you were prescribed any medication, please fill it and take as directed. It may take several days for your symptoms to resolve. Return to the Emergency Department if your symptoms worsen, do not improve, or if you have any other problems. Please contact your doctor or call one of the physicians/clinics you have been referred to that are listed on the Patient Visit Information form that is inc luded in your discharge packet. Bring any paperwork you were given at discharge with you along with any medications you are taking to your follow up visit. Our treatment cannot replace ongoing medical care by a primary care provider outside of the emergency department. Thank you for allowing the [facility] team to be part of your care today. If you had an X-Ray or CT scan: A Radiologist will review the ED reading if any change in treatment is needed we will contact you. If you had a blood, urine, or wound culture: It will take several days for the results, if any change in treatment is needed we will contact you. If you had an STI test: It will take 48 hours for the results. Please call after 1 week if you have not heard back. Prescriptions: Metoclopramide [Reglan] 10 mg PO TID PRN #20 tab PRN Reason: Nausea/Vomiting Ondansetron ODT [Zofran ODT] 4 mg PO Q8 PRN #12 odt PRN Reason: Nausea/Vomiting Instructions: Nausea and Vomiting, Adult (DC)
[2018-04-13 09:22] LABS: BLOOD UREA NITROGEN 9 mg/dl (9-20); CALCIUM 9.6 mg/dL (8.4-10.2); GFR NON-AFRICAN AMERICAN > 60; LIPASE 367 U/L (23-300)
[2018-04-13 09:28] LABS: ALB/GLOB RATIO 1.4 (1.0-2.1); ALBUMIN 4.4 g/dL (3.5-5.0); ALT/SGPT 16 U/L (21-72); AST/SGOT 37 U/L (17-59)
[2018-04-13 09:45] LABS: HEMOGLOBIN 13.2 g/dL (12.0-18.0); MEAN CELL VOLUME 88.5 fl (80.0-94.0); MEAN CORPUSCULAR HEMOGLOBIN 30.1 pg (27.0-31.0); RBC 4.4 Mil/uL (4.40-5.90); RED CELL DISTRIBUTION WIDTH 13.2 % (11.5-14.5); WHITE BLOOD COUNT 7.5 K/uL (4.8-10.8)
[2018-04-13 11:48] VITALS: BP 150/82; PULSE 90; TEMP 97.6; O2SAT 99
== END 2018-04-13 12:04 | disposition home or self-care (01) ==
LOC: H.ER 08:03
DX: R11.10 Vomiting, unspecified (principal); K31.84 Gastroparesis; E11.43 Type 2 diabetes mellitus with diabetic autonomic (poly)neuropathy; E78.00 Pure hypercholesterolemia, unspecified; I10 Essential (primary) hypertension; Z79.4 Long term (current) use of insulin
CPT/HCPCS: 80053; 83690; 85027; 96372; 99284; J2405

== ENCOUNTER 2018-04-14 07:51 | Emergency (ER) | payer OTHER ==
[2018-04-14 07:51] VITALS: BMI 23.5
[2018-04-14 07:57] VITALS: RESP 18
[2018-04-14] MEDS ORDERED: Sodium Chloride 0.9% 1,000 ML IV STA ×2 (08:46→11:58)
--- NOTE | 2018-04-14 08:55 | ED PDOC ---
HPI: Abdomen Time Seen by Provider: 04/14/18 08:32 Chief Complaint (Nursing): GI Problem Chief Complaint (Provider): GI Problem History Per: Patient History/Exam Limitations: no limitations Onset/Duration Of Symptoms: Days Current Symptoms Are (Timing): Still Present Associated Symptoms: Vomiting Additional Complaint(s): 52 year old male with a past medical history of gastritis, gastroparesis, diabetes, asthma, intractable abdominal pain, hypertension, and hypercholesterolemia who is presenting to the ED for evaluation of vomiting onset yesterday. Patient states that he was yesterday for the same complaints and was treated and discharged home. He reports that he is back due to extensive vomiting last night. He offers no other medical complaints at this time. Of note, patient drank nadege in the ED and at this time tolerated PO. PMD: Audrey Larson Past Medical History Reviewed: Historical Data, Nursing Documentation, Vital Signs Vital Signs: Last Vital Signs Temp 97.4 F L 04/14/18 07:55 Pulse 104 H 04/14/18 07:55 Resp 18 04/14/18 07:55 BP 208/103 H 04/14/18 07:55 Pulse Ox 99 04/14/18 07:55 - Medical History PMH: Arthritis, Asthma, Diabetes, Gastritis (H Pylori), HTN, Hypercholesterolemia Denies: Atrial Fibrillation, CHF, HIV, Peripheral Edema, Chronic Kidney Disease - Surgical History Surgical History: Endoscopy - Family History Family History: States: Diabetes, Hypertension - Social History Current smoker - smoking cessation education provided: No Alcohol: None Drugs: Denies - Home Medications Home Medications: Ambulatory Orders Medication Instructions Recorded RX: Amlodipine Besylate/Benazepril 1 cap PO DAILY 01/19/18 [Lotrel 10-40 mg Capsule] RX: Aspirin [Ecotrin] 81 mg PO DAILY 01/19/18 RX: Atorvastatin [Lipitor] 10 mg PO HS 01/19/18 RX: Gabapentin [Neurontin] 600 mg PO HS 01/19/18 RX: Insulin Glargine,Hum.rec.anlog 24 unit SC HS 01/19/18 [Lantus Solostar] RX: Insulin Lispro [humALOG] 4 unit SC AC 01/19/18 RX: MetFORMIN [glucoPHAGE] 1,000 mg PO BID 01/19/18 RX: Omeprazole 20 mg PO DAILY 01/19/18 RX: Ondansetron [Zofran Odt] 4 mg PO Q8 PRN 01/19/18 Metoclopramide HCl [Reglan] 10 mg PO PRN PRN #30 tablet 01/22/18 Ondansetron ODT [Zofran ODT] 4 mg PO Q8 PRN #12 odt 04/13/18 RX: Metoclopramide [Reglan] 10 mg PO TID PRN #20 tab 04/13/18 Ondansetron [Zofran] 4 mg PO Q6H PRN #5 tab 04/14/18 - Allergies Allergies/Adverse Reactions: Allergies Allergy/AdvReac Type Severity Reaction Status Date / Time Penicillins Allergy SWELLING Verified 04/13/18 08:15 strawberry Allergy SWELLING Verified 04/13/18 08:15 Review of Systems ROS Statement: Except As Marked, All Systems Reviewed And Found Negative Gastrointestinal: Positive for: Vomiting Physical Exam - Reviewed Nursing Documentation Reviewed: Yes Vital Signs Reviewed: Yes - Physical Exam Appears: Positive for: Well, Non-toxic, No Acute Distress Head Exam: Positive for: ATRAUMATIC, NORMAL INSPECTION, NORMOCEPHALIC Skin: Positive for: Normal Color, Warm, DRY Eye Exam: Positive for: Normal appearance ENT: Positive for: Normal ENT Inspection Neck: Positive for: Normal Cardiovascular/Chest: Positive for: Regular Rate, Rhythm, Murmur Respiratory: Positive for: Normal Breath Sounds, Respiratory Distress Gastrointestinal/Abdominal: Positive for: Normal Exam, Soft. Negative for: Tenderness Extremity: Positive for: Normal ROM. Negative for: Deformity, Swelling Neurologic/Psych: Positive for: Alert, Oriented. Negative for: Motor/Sensory Deficits - Laboratory Results Result Diagrams: 04/14/18 10:10 04/14/18 10:10 - ECG O2 Sat by Pulse Oximetry: 99 (RA) Pulse Ox Interpretation: Normal Medical Decision Making Medical Decision Making: Time: 8:46 Plan: vomiting, gastroparesis --IV Fluids --Zofran 4 mg IV --CMP --CBC 12:11 Labs were reviewed with a normal WBC count noted, but with an elevated BUN. Provider ordered CT scan and more IV fluids. CT Abd/Pelvis: FINDINGS: LOWER THORAX: Unremarkable. LIVER: Unremarkable. No gross lesion or ductal dilatation. GALLBLADDER AND BILE DUCTS: Unremarkable. PANCREAS: Unremarkable. No gross lesion or ductal dilatation. SPLEEN: Unremarkable. ADRENALS: Unremarkable. No mass. KIDNEYS AND URETERS: Unremarkable. No hydronephrosis. No solid mass. Incidental finding(s): Subcentimeter cyst lower pole right kidney a stable finding VASCULATURE: Unremarkable. No aortic aneurysm. No atherosclerotic calcification or mural plaque present. BOWEL: Unremarkable. No obstruction. No gross mural thickening. APPENDIX: No abnormalities to suggest acute appendicitis. No right lower quadrant inflammatory processes identified. PERITONEUM: Unremarkable. No free fluid. No free air. LYMPH NODES: Unremarkable. No enlarged lymph nodes. BLADDER: Unremarkable. REPRODUCTIVE: Stable enlargement of the prostate. BONES: No acute fracture. OTHER FINDINGS: None. IMPRESSION: Unremarkable contrast enhanced CT of the abdomen and pelvis. No acute or significant findings related to/ accounting for the clinical presentation. Additional benign and/or incidental findings described above. No significant interval change compared to the prior examination(s). 14:56 Patient reports improvement in symptoms and CT results were conveyed to patient by provider. pt tolerated po. pt aware of elevated sugar and need for follow up. Upon provider evaluation, patient is medically stable for discharge home with follow up with PMD. Patient was resting comfortably when provider entered room. Scribe Attestation: Documented by Yana Marquez, acting as a scribe for Gilbert Duke MD. Provider Scribe Attestation: All medical record entries made by the Scribe were at my direction and personally dictated by me. I have reviewed the chart and agree that the record accurately reflects my personal performance of the history, physical exam, [facility] decision making, and the department course for this patient. I have also personally directed, reviewed, and agree with the discharge instructions and disposition. Disposition - Clinical Impression Clinical Impression: Diabetic gastroparesis associated with type 2 diabetes mellitus - Patient ED Disposition Is Patient to be Admitted: No Counseled Patient/Family Regarding: Studies Performed, Diagnosis, Need For Followup - Disposition Disposition: Routine/Home Disposition Time: 15:19 Condition: IMPROVED Additional Instructions: follow up with your doctor in 1-2 days return to the ED with any worsening or concerning symptoms Prescriptions: Ondansetron [Zofran] 4 mg PO Q6H PRN #5 tab PRN Reason: Nausea/Vomiting Instructions: Gastroparesis (Delayed Gastric Emptying), Diabetes Type 2 (DC) Forms: [employer] (Vietnamese)
[2018-04-14 10:54] LABS: BASO % 0.1 % (0.0-2.0); HEMOGLOBIN 14.2 g/dL (12.0-18.0); LYMPH # 0.9 K/uL (1.0-4.3); LYMPH % 9.2 % (20.0-40.0); MEAN CELL VOLUME 89.3 fl (80.0-94.0); MEAN CORPUSCULAR HEMOGLOBIN 30.1 pg (27.0-31.0); MEAN CORPUSCULAR HGB CONC 33.7 g/dL (33.0-37.0); MEAN PLATELET VOLUME 7.5 fl (7.2-11.7); MONO # 0.6 K/uL (0.0-0.8); MONO % 6.2 % (0.0-10.0); NEUT # 8.7 K/uL (1.8-7.0); NEUT % 84.5 % (50.0-75.0); NRBC % 0.1 % (0.0-0.0); PLATELET COUNT 260 K/uL (130-400); RBC 4.72 Mil/uL (4.40-5.90); RED CELL DISTRIBUTION WIDTH 13.5 % (11.5-14.5); WHITE BLOOD COUNT 10.3 K/uL (4.8-10.8)
[2018-04-14 11:20] LABS: ALB/GLOB RATIO 1.4 (1.0-2.1); ALBUMIN 5.2 g/dL (3.5-5.0); ALT/SGPT 35 U/L (21-72); AST/SGOT 22 U/L (17-59); BLOOD UREA NITROGEN 23 mg/dl (9-20); CALCIUM 10.7 mg/dL (8.4-10.2); GFR NON-AFRICAN AMERICAN > 60
[2018-04-14 12:33] LABS: LARGE PLATELETS PRESENT; LYMPHOCYTE 12 % (20-50); MONOCYTE 6 % (0-10); NEUTROPHIL 82 % (42-75); OVALOCYTES SLIGHT; PLATELET ESTIMATE NORMAL (NORMAL); TEARDROP CELLS SLIGHT; TOTAL CELLS COUNTED 100
[2018-04-14] MEDS ORDERED: Iohexol 300 100 ML IJ ONE (13:19)
[2018-04-14] MEDS ORDERED: Sodium Chloride 0.9% 50 ML IV ONE (13:20)
--- NOTE | 2018-04-14 14:36 | CT ---
Date of service: 04/14/2018 PROCEDURE: CT Abdomen and Pelvis with contrast HISTORY: vomiintg rule out obstruction COMPARISON: 01/19/2018. Abdominal ultrasound and CT of the abdomen and pelvis. TECHNIQUE: Intravenous contrast dose: 95 cc Omnipaque 300 Radiation dose: Total exam DLP = 278.57 mGy-cm. This CT exam was performed using one or more of the following dose reduction techniques: Automated exposure control, adjustment of the mA and/or kV according to patient size, and/or use of iterative reconstruction technique. FINDINGS: LOWER THORAX: Unremarkable. LIVER: Unremarkable. No gross lesion or ductal dilatation. GALLBLADDER AND BILE DUCTS: Unremarkable. PANCREAS: Unremarkable. No gross lesion or ductal dilatation. SPLEEN: Unremarkable. ADRENALS: Unremarkable. No mass. KIDNEYS AND URETERS: Unremarkable. No hydronephrosis. No solid mass. Incidental finding(s): Subcentimeter cyst lower pole right kidney a stable finding VASCULATURE: Unremarkable. No aortic aneurysm. No atherosclerotic calcification or mural plaque present. BOWEL: Unremarkable. No obstruction. No gross mural thickening. APPENDIX: No abnormalities to suggest acute appendicitis. No right lower quadrant inflammatory processes identified. PERITONEUM: Unremarkable. No free fluid. No free air. LYMPH NODES: Unremarkable. No enlarged lymph nodes. BLADDER: Unremarkable. REPRODUCTIVE: Stable enlargement of the prostate. BONES: No acute fracture. OTHER FINDINGS: None. IMPRESSION: Unremarkable contrast enhanced CT of the abdomen and pelvis. No acute or significant findings related to/ accounting for the clinical presentation. Additional benign and/or incidental findings described above. No significant interval change compared to the prior examination(s).
[2018-04-14] MEDS ORDERED: Insulin Regular 100 units/ml SC STA (14:49)
[2018-04-14 15:59] VITALS: TEMP 97.9
[2018-04-14 16:06] VITALS: PULSE 82; O2SAT 99
[2018-04-14 16:12] VITALS: BP 160/90
== END 2018-04-14 15:59 | disposition home or self-care (01) ==
LOC: H.ER 07:51
DX: E11.43 Type 2 diabetes mellitus with diabetic autonomic (poly)neuropathy (principal); Z79.4 Long term (current) use of insulin; E78.00 Pure hypercholesterolemia, unspecified; I10 Essential (primary) hypertension; Z88.0 Allergy status to penicillin
CPT/HCPCS: 74177; 80053; 82948; 85025; 96361; 96374; 96375; 96376; 99285; J2405; J2765; J7030; Q9967

== ENCOUNTER 2018-04-15 19:15 | Emergency (ER) | payer OTHER ==
[2018-04-15 19:15] VITALS: BMI 23.5
[2018-04-15] MEDS ORDERED: Sodium Chloride 0.9% 1,000 ML IV STA ×2 (20:53→23:00)
[2018-04-15 21:16] LABS: BASO % 0.1 % (0.0-2.0); EOS % 0.1 % (0.0-4.0); LYMPH # 1.7 K/uL (1.0-4.3); LYMPH % 11.4 % (20.0-40.0); MEAN CELL VOLUME 87.6 fl (80.0-94.0); MEAN CORPUSCULAR HGB CONC 34.2 g/dL (33.0-37.0); MEAN PLATELET VOLUME 7.8 fl (7.2-11.7); MONO # 0.9 K/uL (0.0-0.8); MONO % 6.4 % (0.0-10.0); NRBC % 0.2 % (0.0-0.0); RBC 4.99 Mil/uL (4.40-5.90); RED CELL DISTRIBUTION WIDTH 13.2 % (11.5-14.5); WHITE BLOOD COUNT 14.7 K/uL (4.8-10.8)
[2018-04-15 21:43] LABS: ALB/GLOB RATIO 1.3 (1.0-2.1); ALBUMIN 5.7 g/dL (3.5-5.0); ALT/SGPT 14 U/L (21-72); AST/SGOT 71 U/L (17-59); BLOOD UREA NITROGEN 20 mg/dl (9-20); CALCIUM 10.4 mg/dL (8.4-10.2); GFR NON-AFRICAN AMERICAN > 60; LIPASE 103 U/L (23-300)
[2018-04-15 22:56] LABS: ALB/GLOB RATIO 1.4 (1.0-2.1); ALBUMIN 4.7 g/dL (3.5-5.0); ALT/SGPT 32 U/L (21-72); AST/SGOT 22 U/L (17-59); BLOOD UREA NITROGEN 19 mg/dl (9-20); CALCIUM 9.9 mg/dL (8.4-10.2); GFR NON-AFRICAN AMERICAN > 60
--- NOTE | 2018-04-16 00:52 | ED PDOC ---
HPI:Nausea, Vomiting, Diarrhea Time Seen by Provider: 04/15/18 20:13 Chief Complaint (Nursing): GI Problem Chief Complaint (Provider): Vomiting History Per: Patient History/Exam Limitations: no limitations Onset/Duration Of Symptoms: Days (x 3) Current Symptoms Are (Timing): Still Present Associated Symptoms: Nausea, Vomiting Additional Complaint(s): 52 year old male with a history of H. Pylori gastritis, HTN, DM and hypercholesterolemia presents to the ED with vomiting for three days. Currently complaining of nausea. Patient states symptoms were initially associated with abdominal pain that have since resolved. Patient has been seen in this ED twice since onset and has a history of similar symptoms. Yesterday, he had blood work and CT performed that resulted as normal. He states that he takes both Reglan and Zofran without resolution of symptoms. Denies chest pain, headache, back pain, diarrhea, and hematemesis. PMD: Dr. Audrey Larson Past Medical History Reviewed: Historical Data, Nursing Documentation, Vital Signs Vital Signs: Last Vital Signs Temp 98.1 F 04/15/18 22:41 Pulse 95 H 04/15/18 22:41 Resp 20 04/15/18 22:41 BP 196/102 H 04/15/18 22:41 Pulse Ox 99 04/15/18 22:41 - Medical History PMH: Arthritis, Asthma, Diabetes, Gastritis (H Pylori), HTN, Hypercholesterolemia Denies: Atrial Fibrillation, CHF, HIV, Peripheral Edema, Chronic Kidney Disease - Surgical History Surgical History: Endoscopy - Family History Family History: States: Unknown Family Hx, Diabetes, Hypertension - Home Medications Home Medications: Ambulatory Orders Medication Instructions Recorded Amlodipine Besylate/Benazepril 1 cap PO DAILY 01/19/18 [Lotrel 10-40 mg Capsule] Aspirin [Ecotrin] 81 mg PO DAILY 01/19/18 Atorvastatin [Lipitor] 10 mg PO HS 01/19/18 Gabapentin [Neurontin] 600 mg PO HS 01/19/18 Insulin Glargine,Hum.rec.anlog 24 unit SC HS 01/19/18 [Lantus Solostar] Insulin Lispro [humALOG] 4 unit SC AC 01/19/18 MetFORMIN [glucoPHAGE] 1,000 mg PO BID 01/19/18 Omeprazole 20 mg PO DAILY 01/19/18 Ondansetron [Zofran Odt] 4 mg PO Q8 PRN 01/19/18 Metoclopramide HCl [Reglan] 10 mg PO PRN PRN #30 tablet 01/22/18 Metoclopramide [Reglan] 10 mg PO TID PRN #20 tab 04/13/18 Ondansetron ODT [Zofran ODT] 4 mg PO Q8 PRN #12 odt 04/13/18 Ondansetron [Zofran] 4 mg PO Q6H PRN #5 tab 04/14/18 - Allergies Allergies/Adverse Reactions: Allergies Allergy/AdvReac Type Severity Reaction Status Date / Time Penicillins Allergy SWELLING Verified 04/15/18 19:29 strawberry Allergy SWELLING Verified 04/15/18 19:29 Review of Systems ROS Statement: Except As Marked, All Systems Reviewed And Found Negative Constitutional: Negative for: Fever Cardiovascular: Negative for: Chest Pain Gastrointestinal: Negative for: Hematemesis Musculoskeletal: Negative for: Neck Pain, Back Pain Neurological: Negative for: Headache Physical Exam - Reviewed Nursing Documentation Reviewed: Yes Vital Signs Reviewed: Yes - Physical Exam Appears: Positive for: No Acute Distress Head Exam: Positive for: ATRAUMATIC, NORMAL INSPECTION, NORMOCEPHALIC Skin: Positive for: Normal Color, Warm, Dry. Negative for: Rash Eye Exam: Positive for: EOMI, Normal appearance, PERRL Neck: Positive for: Normal, Painless ROM, Supple Cardiovascular/Chest: Positive for: Regular Rate, Rhythm. Negative for: Murmur Respiratory: Positive for: Normal Breath Sounds. Negative for: Respiratory Distress Gastrointestinal/Abdominal: Positive for: Normal Exam, Soft. Negative for: Tenderness, Distended, Guarding, Rebound Back: Positive for: Normal Inspection. Negative for: L CVA Tenderness, R CVA T enderness Extremity: Positive for: Normal ROM (upper and lower extremities). Negative for: Deformity Neurologic/Psych: Positive for: Alert, Oriented (x 3). Negative for: Motor/Sensory Deficits - Laboratory Results Result Diagrams: 04/15/18 22:01 04/15/18 22:32 Lab Results: Total Bilirubin 1.3 mg/dl (0.2-1.3) 04/15/18 22:32 AST 22 U/L (17-59) 04/15/18 22:32 ALT 32 U/L (21-72) 04/15/18 22:32 Alkaline Phosphatase 93 U/L (38-126) 04/15/18 22:32 Total Protein 8.0 G/DL (6.3-8.2) 04/15/18 22:32 Albumin 4.7 g/dL (3.5-5.0) 04/15/18 22:32 Globulin 3.4 gm/dL (2.2-3.9) 04/15/18 22:32 Albumin/Globulin Ratio 1.4 (1.0-2.1) 04/15/18 22:32 Lipase 103 U/L (23-300) 04/15/18 21:01 - ECG O2 Sat by Pulse Oximetry: 99 (RA) Pulse Ox Interpretation: Normal Medical Decision Making Medical Decision Makin:52 Impression: vomiting Initial Plan: --CMP --CBC --EKG --Alcohol --UDS --Lipase --NS IV 1,000 mls/hr --UA 23:00 --NS IV 0055 --Upon my reevaluation, patient has not experienced vomiting while in the ED and found good relief of nausea. --He was seen eating in ED. 0530 Case d/w Dr. Ferris who agrees with plan and care. No vomiting while in ED. Lisinopril 40mg PO ordered. Pt. states he has not has HTN meds for the past 2 days but has has his meds available at home. Scribe Attestation: Documented by Nadia Feldman acting as a scribe for Sanjeev Laurent PA-C Provider Scribe Attestation: All medical record entries made by the Scribe were at my direction and personally dictated by me. I have reviewed the chart and agree that the record accurately reflects my personal performance of the history, physical exam, medical decision making, and the department course for this patient. I have also personally directed, reviewed, and agree with the discharge instructions and disposition. Disposition - Clinical Impression Clinical Impression: Gastroparesis - Patient ED Disposition Is Patient to be Admitted: No - Disposition Referrals: [facility] [place] [Outside] Disposition: Routine/Home Disposition Time: 00:55 Condition: IMPROVED Additional Instructions: KERI BECERRIL, thank you for letting us take care of you today. Your provider was Dino Ferris MD and you were treated for VOMITING. The emergency medical care you received today was directed at your acute symptoms. If you were prescribed any medication, please fill it and take as directed. It may take several days for your symptoms to resolve. Return to the Emergency Department if your symptoms worsen, do not improve, or if you have any other problems. Please contact your doctor or call one of the physicians/clinics you have been referred to that are listed on the Patient Visit Information form that is included in your discharge packet. Bring any paperwork you were given at discharge with you along with any medications you are taking to your follow up visit. Our treatment cannot replace ongoing medical care by a primary care provider outside of the emergency department. Thank you for allowing the [facility] team to be part of your care today. If you had an X-Ray or CT scan: A Radiologist will review the ED reading if any change in treatment is needed we will contact you. If you had a blood, urine, or wound culture: It will take several days for the results, if any change in treatment is needed we will contact you. If you had an STI test: It will take 48 hours for the results. Please call after 1 week if you have not heard back. Instructions: Gastroparesis (Delayed Gastric Emptying) (DC) Forms: [employer] (Hungarian) Print Language: URDU
[2018-04-16 01:16] LABS: SQUAMOUS EPITHIAL 1 /hpf (0-5); URINE BACTERIA OCC (<OCC); URINE BILIRUBIN NEGATIVE (NEGATIVE); URINE BLOOD SMALL (NEGATIVE); URINE CLARITY CLOUDY (Clear); URINE COLOR YELLOW (YELLOW); URINE GLUCOSE (UA) >=500 mg/dL (NEGATIVE); URINE LEUKOCYTE ESTERASE SMALL Leu/uL (Negative); URINE PROTEIN 100 mg/dL (NEGATIVE)
[2018-04-16 01:21] LABS: BARBITURATES, UR NEGATIVE (NEGATIVE); BENZODIAZEPINES, UR NEGATIVE (NEGATIVE); OPIATES, UR NEGATIVE (NEGATIVE); PHENCYCLIDINE, UR NEGATIVE (NEGATIVE)
[2018-04-16 01:27] VITALS: RESP 16
[2018-04-16 02:25] VITALS: O2SAT 99
[2018-04-16 05:40] VITALS: BP 195/111; PULSE 97
[2018-04-16 05:44] VITALS: TEMP 98.7
--- NOTE | 2018-04-16 08:12 | RAD ---
Date of service: 04/15/2018 HISTORY: vomiting COMPARISON: Chest radiographs 02/07/2016. FINDINGS: LUNGS: No active pulmonary disease. PLEURA: No significant pleural effusion identified, no pneumothorax apparent. CARDIOVASCULAR: No aortic atherosclerotic calcification present. Normal cardiac size. No pulmonary vascular congestion. OSSEOUS STRUCTURES: No significant abnormalities. VISUALIZED UPPER ABDOMEN: Normal. OTHER FINDINGS: None. IMPRESSION: No interval acute cardiopulmonary disease appreciated.
--- NOTE | 2018-04-16 09:36 | CARD ---
APPROVED REPORT Date of service: 04/15/2018 EKG Measurement Heart [id number] <Conclusion> Normal sinus rhythm Normal ECG
== END 2018-04-16 05:58 | disposition home or self-care (01) ==
LOC: H.ER 19:15
DX: K31.84 Gastroparesis (principal); E11.9 Type 2 diabetes mellitus without complications; I10 Essential (primary) hypertension
CPT/HCPCS: 71045; 80053; 80320; 80324; 80345; 80346; 80349; 80353; 80358; 80361; 81003; 82948; 83690; 83992; 85025; 93005; 96361; 96374; 99284; J2765; J7030

== ENCOUNTER 2018-05-10 07:28 | Observation (INO) | payer OTHER ==
[2018-05-10 07:28] VITALS: BMI 23.5
[2018-05-10] MEDS ORDERED: Sodium Chloride 0.9% 1,000 ML IV STA (07:39)
--- NOTE | 2018-05-10 07:45 | ED PDOC ---
HPI:Nausea, Vomiting, Diarrhea Time Seen by Provider: 05/10/18 07:31 Chief Complaint (Provider): nausea and vomiting History Per: Patient History/Exam Limitations: no limitations Onset/Duration Of Symptoms: Days (x3) Current Symptoms Are (Timing): Still Present Associated Symptoms: Nausea, Vomiting. denies: Fever, Chills, Diarrhea Additional Complaint(s): Alexis Lyon is a 52 year old male, with a past medical history of diabetes, who presents to the emergency department complaining of nausea and vomiting onset x3 days ago. Patient is tolerating PO w/o any difficulties. He denies any diarrhea, abdominal pain, fever or chills. No further medical complaints. PMD: Audrey Larson Past Medical History Reviewed: Historical Data, Nursing Documentation, Vital Signs Vital Signs: Last Vital Signs Temp 97.3 F L 05/10/18 07:31 Pulse 120 H 05/10/18 07:31 Resp 17 05/10/18 07:31 BP 188/133 H 05/10/18 07:31 Pulse Ox 98 05/10/18 07:31 - Medical History PMH: Arthritis, Asthma, Diabetes, Gastritis (H Pylori), HTN, Hypercholesterolemia Denies: Atrial Fibrillation, CHF, HIV, Peripheral Edema, Chronic Kidney Disease - Surgical History Surgical History: Endoscopy - Family History Family History: States: Unknown Family Hx, Diabetes, Hypertension - Home Medications Home Medications: Ambulatory Orders Medication Instructions Recorded Amlodipine Besylate/Benazepril 1 cap PO DAILY 01/19/18 [Lotrel 10-40 mg Capsule] Aspirin [Ecotrin] 81 mg PO DAILY 01/19/18 Atorvastatin [Lipitor] 10 mg PO HS 01/19/18 Gabapentin [Neurontin] 600 mg PO HS 01/19/18 Insulin Glargine,Hum.rec.anlog 24 unit SC HS 01/19/18 [Lantus Solostar] Insulin Lispro [humALOG] 4 unit SC AC 01/19/18 MetFORMIN [glucoPHAGE] 1,000 mg PO BID 01/19/18 Omeprazole 20 mg PO DAILY 01/19/18 Ondansetron [Zofran Odt] 4 mg PO Q8 PRN 01/19/18 Metoclopramide HCl [Reglan] 10 mg PO PRN PRN #30 tablet 01/22/18 Metoclopramide [Reglan] 10 mg PO TID PRN #20 tab 04/13/18 Ondansetron ODT [Zofran ODT] 4 mg PO Q8 PRN #12 odt 04/13/18 Ondansetron [Zofran] 4 mg PO Q6H PRN #5 tab 04/14/18 - Allergies Allergies/Adverse Reactions: Allergies Allergy/AdvReac Type Severity Reaction Status Date / Time Penicillins Allergy SWELLING Verified 04/15/18 19:29 strawberry Allergy SWELLING Verified 04/15/18 19:29 Review of Systems ROS Statement: Except As Marked, All Systems Reviewed And Found Negative Constitutional: Negative for: Fever, Chills Gastrointestinal: Positive for: Nausea, Vomiting. Negative for: Abdominal Pain, Diarrhea Physical Exam - Reviewed Nursing Documentation Reviewed: Yes Vital Signs Reviewed: Yes - Physical Exam Appears: Positive for: No Acute Distress Head Exam: Positive for: ATRAUMATIC, NORMAL INSPECTION, NORMOCEPHALIC Skin: Positive for: Normal Color, Warm, Dry Eye Exam: Positive for: Normal appearance, EOMI, PERRL Neck: Positive for: Normal, Painless ROM Cardiovascular/Chest: Positive for: Regular Rate, Rhythm. Negative for: Murmur Respiratory: Positive for: Normal Breath Sounds. Negative for: Respiratory Distress Gastrointestinal/Abdominal: Positive for: Normal Exam, Soft. Negative for: Tenderness, Guarding, Rebound Back: Positive for: Normal Inspection. Negative for: L CVA Tenderness, R CVA Tenderness Extremity: Positive for: Normal ROM (upper and lower extremities). Negative for: Deformity, Swelling Neurologic/Psych: Positive for: Alert, Oriented. Negative for: Motor/Sensory Deficits - Laboratory Results Result Diagrams: 05/10/18 08:10 05/10/18 08:10 - ECG O2 Sat by Pulse Oximetry: 98 (RA) Pulse Ox Interpretation: Normal Medical Decision Making Medical Decision Making: Time: 07:31 Initial Impression: Will hydrate with IV fluids, give Zofran and Reglan to r/o dehydration in diabetic patient. Also treat for possible diabetic gastroparesis. Initial Plan: --EKG --CMP --CBC w/ differential --NaCl 1,000 ml IV 200 mls/hr --Reglan 10 mg IVP --Zofran Inj 4mg IVP --Reevaluation Scribe Attestation: Documented by Rad Ford, acting as a scribe for Chad Hamilton MD Provider Scribe Attestation: All medical record entries made by the Scribe were at my direction and personally dictated by me. I have reviewed the chart and agree that the record a ccurately reflects my personal performance of the history, physical exam, medical decision making, and the department course for this patient. I have also personally directed, reviewed, and agree with the discharge instructions and disposition. Disposition - Clinical Impression Clinical Impression: Diabetic gastroparesis associated with type 2 diabetes mellitus, HTN (hypertension), Dehydration, Hypokalemia - Patient ED Disposition Is Patient to be Admitted: Yes - Disposition Disposition Time: 09:52 Condition: FAIR - Pt Status Changed To: Hospital Disposition Of: Observation - POA Present On Arrival: None
[2018-05-10 08:20] LABS: BASO % 0.5 % (0.0-2.0); EOS % 0.1 % (0.0-4.0); HEMOGLOBIN 14.9 g/dL (12.0-18.0); LYMPH % 10.5 % (20.0-40.0); MEAN CELL VOLUME 87.8 fl (80.0-94.0); MEAN CORPUSCULAR HEMOGLOBIN 30.2 pg (27.0-31.0); MEAN CORPUSCULAR HGB CONC 34.4 g/dL (33.0-37.0); MEAN PLATELET VOLUME 7.4 fl (7.2-11.7); MONO # 0.7 K/uL (0.0-0.8); NEUT % 81.9 % (50.0-75.0); NRBC % 0.1 % (0.0-0.0); RBC 4.95 Mil/uL (4.40-5.90); RED CELL DISTRIBUTION WIDTH 13.3 % (11.5-14.5); WHITE BLOOD COUNT 9.7 K/uL (4.8-10.8)
--- NOTE | 2018-05-10 09:04 | CARD ---
APPROVED REPORT Date of service: 05/10/2018 EKG Measurement Heart [id number] <Conclusion> Sinus tachycardia Possible Left atrial enlargement Borderline ECG
[2018-05-10 09:06] LABS: ALB/GLOB RATIO 1.4 (1.0-2.1); ALT/SGPT 29 U/L (21-72); AST/SGOT 26 U/L (17-59); BLOOD UREA NITROGEN 42 mg/dl (9-20); CALCIUM 10.1 mg/dL (8.4-10.2); GFR NON-AFRICAN AMERICAN 53
[2018-05-10] MEDS ORDERED: Potassium Chloride 20 mEq ER Tab PO ONE ×2 (09:10→09:54)
[2018-05-10] MEDS ORDERED: Insulin Regular 100 units/ml SC STA (09:16)
[2018-05-10] MEDS ORDERED: Insulin Regular 100 units/ml ONE (09:55)
--- NOTE | 2018-05-10 10:27 | CP.PCM.HP ---
History of Present Illness - History of Present Illness History of Present Illness: Pt is a 52 yo M with a pmhx of Gastroparesis, IDDM2, Gastritis, HTN, HLD, peripheal neuropathy presented to ED for evaluation of intractable vomiting. Pt reports that since thursday 3 days before admission he had 10 episodes of yellow NBNB emesis, which has been persistent sat, thursday and reports 5 episodes of emesis this AM. Denies any changes in diet. Last bowel movement was 5 days prior to admission reports chronic constipation, passing gas without difficulty, and B/L extremity numbness/tingling. Denies abdominal pain, fever/chills, headaches, changes in vision, CP/SOB/palpitations, diarrhea, urinary symptoms. Last took medications 3 days ago due to symptoms. Reports he was supposed to follow up with GI outpt Dr. Howard in [place] but due to the symptoms has been in the ED instead, pt has been admitted 4x in the last 3 mo due to similar episodes. PMD: Dr. Larson (last saw 1 wk prior) PMHx: IDDM2- diagnosed in 2005, HTN, Gastroparesis, Gastritis, peripheral neuropathy Allergies: Pencillin (swelling), strawberries Psurghx: none FamilyHx: HTN, seizures SocialHx: denies ETOH/Tobacco/drug abuse Next of Kin: Fannie Cevallos [phone] Home Meds: Lantus 24 un SC nightly, Humalog 4 Un before meals, ASA 81mg QD, Atorvastatin 10 MG QD, Metformin 1000 MG 1 tab BID, Omeprazole 20 MG QD, Amlodipine Besy-Benazepril HCl 10-40 MG QD, Gabapentin 600 MG QD, Zofran 4mg tab PRN, Reglan 10mg PRN ED Course: POC 392- 8 units Humalin R, BP 192/112- Clonidine 0.1mg Once, K-3.1- K DUR 20mg Once, Zofran 4mg IVP once, Reglan 10mg IVP once NS @200ml/hr, EKG- sinus tachy 106, CBC, CMP Present on Admission - Present on Admission Any Indicators Present on Admission: No History of DVT/PE: No History of Uncontrolled Diabetes: No Urinary Catheter: No Decubitus Ulcer Present: No Review of Systems - EENT Eyes: absent: Blurred Vision - Cardiovascular Cardiovascular: Rapid Heart Rate. absent: Chest Pain, Dyspnea - Gastrointestinal Gastrointestinal: Constipation, Heartburn, Nausea, Vomiting. absent: Abdominal Pain, Diarrhea, Hematemesis - Musculoskeletal Musculoskeletal: Numbness, Tingling - Endocrine Endocrine: absent: Polydipsia, Polyphagia, Polyuria Past Patient History - Infectious Disease Hx of Infectious Diseases: None - Past Medical History & Family History Past Medical History?: Yes - Past Social History Smoking Status: Never Smoked Alcohol: None Drugs: Denies - CARDIAC Hx Atrial Fibrillation: No Hx Congestive Heart Failure: No Hx Hypercholesterolemia: Yes Hx Hypertension: Yes Hx Peripheral Edema: No - PULMONARY Hx Asthma: Yes - NEUROLOGICAL Hx Neurological Disorder: No - HEENT Hx HEENT Problems: No - RENAL Hx Chronic Kidney Disease: No - ENDOCRINE/METABOLIC Hx Endocrine Disorders: Yes Hx Diabetes Mellitus Type 2: Yes - HEMATOLOGICAL/ONCOLOGICAL Hx Human Immunodeficiency Virus (HIV): No - INTEGUMENTARY Hx Dermatological Problems: No - MUSCULOSKELETAL/RHEUMATOLOGICAL Hx Arthritis: Yes - GASTROINTESTINAL Hx Gastritis: Yes (H Pylori) - GENITOURINARY/GYNECOLOGICAL Hx Genitourinary Disorders: No - PSYCHIATRIC Hx Psychophysiologic Disorder: No Hx Substance Use: No - SURGICAL HISTORY Hx Surgeries: Yes - ANESTHESIA Hx Anesthesia: Yes Hx Anesthesia Reactions: No Hx Malignant Hyperthermia: No Meds Allergies/Adverse Reactions: Allergies Allergy/AdvReac Type Severity Reaction Status Date / Time Penicillins Allergy SWELLING Verified 04/15/18 19:29 strawberry Allergy SWELLING Verified 04/15/18 19:29 Physical Exam - Constitutional Appears: Non-toxic, No Acute Distress - Head Exam Head Exam: ATRAUMATIC, NORMAL INSPECTION, NORMOCEPHALIC - Eye Exam Eye Exam: EOMI - ENT Exam ENT Exam: Mucous Membranes Dry - Respiratory Exam Respiratory Exam: Clear to Auscultation Bilateral, NORMAL BREATHING PATTERN. absent: Rales, Rhonchi, Wheezes - Cardiovascular Exam Cardiovascular Exam: Tachycardia, +S1, +S2 - GI/Abdominal Exam GI & Abdominal Exam: Normal Bowel Sounds, Soft. absent: Guarding, Rebound, Tenderness - Extremities Exam Extremities exam: Positive for: normal inspection. Negative for: pedal edema - Neurological Exam Neurological exam: Alert, Oriented x3 - Skin Skin Exam: Normal Color Results - Vital Signs Recent Vital Signs: Last Vital Signs Temp 97.3 F L 05/10/18 07:31 Pulse 120 H 05/10/18 07:31 Resp 17 05/10/18 07:31 BP 177/110 H 05/10/18 09:57 Pulse Ox 98 05/10/18 09:53 - Labs Result Diagrams: 05/10/18 08:10 05/10/18 08:10 Labs: Laboratory Results - last 24 hr 05/10/18 05/10/18 08:10 08:10 WBC 9.7 RBC 4.95 Hgb 14.9 Hct 43.5 MCV 87.8 MCH 30.2 MCHC 34.4 RDW 13.3 Plt Count 287 MPV 7.4 Neut % (Auto) 81.9 H Lymph % (Auto) 10.5 L [place] % (Auto) 7.0 Eos % (Auto) 0.1 Baso % (Auto) 0.5 Neut # (Auto) 8.0 H Lymph # (Auto) 1.0 [place] # (Auto) 0.7 Eos # (Auto) 0.0 Baso # (Auto) 0.0 Sodium 136 Potassium 3.1 L Chloride 80 L Carbon Dioxide 39 H Anion Gap 20 BUN 42 H Creatinine 1.4 Est GFR ( Amer) > 60 Est GFR (Non-Af Amer) 53 Random Glucose 392 H Calcium 10.1 Total Bilirubin 1.8 H AST 26 ALT 29 Alkaline Phosphatase 94 Total Protein 8.4 H Albumin 5.0 Globulin 3.5 Albumin/Globulin Ratio 1.4 Assessment & Plan - Assessment and Plan (Free Text) Assessment: Assessment:Pt is a 52 yo M with a pmhx of Gastroparesis, IDDM2, Gastritis, HTN, HLD, peripheral neuropathy presented to ED with nausea and vomiting for 3 days admitted for evaluation of Intractable vomiting, Diabetic gastroparesis, Electrolyte imbalance, Dehydration and HTN Plan: Intractable vomiting Likely 2/2 diabetic gastroparesis NPO diet Reglan and Zofran in ED Reglan Q6h, Zofran Q4 PRN received IVF NS @ 200ml/hr in ED c/w 1/2NS @ 150ml/hr Lipase wnl F/u CMP in AM Hypokalemia 2/2 to intractable vomiting, k-3.1 Received K dur 20mg Once in ED Start KCL 20meq IV (x2) F/u CMP in AM Dehydration 2/2 to intractable vomiting received IVF NS @ 200ml/hr in ED c/w 1/2NS @ 150ml/hr IDDM2 chronic, uncontrolled Accucheck 392 8 units Humalin R in ED Last HGA1c 7.8 (04/23/18) Accuchecks ACHS Insulin sliding scale Hypoglycemic protocol HTN chronic EKG-sinus tachy Clonidine 0.1mg (x2) in ED c/w clonidine 0.1mg PRN Constipation acute Dulcolax supp Colace 100mg Peripheral Neuropathy chronic, 2/2 to diabetes c/w Gabapentin 600mg QD Diet NPO DVT PPX Lovenox 40mg SC QD GI PPX Protonix 40mg IVP Code Status Full code Case reviewed and discussed with Dr. Marsha Herrera PGY1
[2018-05-10] MEDS ORDERED: Glucagon Recombinant 1 mg Inj IM PRN (12:26)
[2018-05-10] MEDS ORDERED: Dextrose 50% SYRINGE Inj (50 ml) IV PRN (12:26)
[2018-05-10 13:57] LABS: LIPASE 72 U/L (23-300)
[2018-05-10] MEDS: Potassium Chloride 20 mEq 100 ML IVPB SCH (14:55)
[2018-05-10] MEDS ORDERED: Sodium Chloride 0.9% 1,000 ML IV SCH (15:00)
[2018-05-10] MEDS ORDERED: Sodium Chloride 0.45% 1,000 ML IV SCH (16:30)
[2018-05-10] MEDS: Insulin Lispro (humaLOG) 100 Units/ml Inj SC SCH ×2 (17:53→22:32)
[2018-05-10] MEDS: Sodium Chloride 0.45% 1,000 ML IV SCH ×2 (18:04→23:30)
[2018-05-11] MEDS: Sodium Chloride 0.45% 1,000 ML IV SCH ×3 (01:36→12:34)
[2018-05-11] MEDS: Insulin Lispro (humaLOG) 100 Units/ml Inj SC SCH ×4 (06:29→23:23)
--- NOTE | 2018-05-11 06:33 | CP.PCM.PN ---
Subjective - Date & Time of Evaluation Date of Evaluation: 05/11/18 Time of Evaluation: 09:00 - Subjective Subjective: Pt is a 52 yo M with a pmhx of Gastroparesis, IDDM2, Gastritis, HTN, HLD, peripheal neuropathy presented to ED with N/V for 3 days admitted for intractable vomiting, gastroparesis, electrolyte imbalance, dehydration, and HTN. Pt reports he is feeling better today and wants to eat breakfast. Had occasional dry heaves overnight, has passed a small soft bowel movement. Denies fever, chills, headache, blurry vision, chest pain, SOB, vomiting, abdominal pain, diarrhea, dysuria. Objective - Vital Signs/Intake and Output Vital Signs (last 24 hours): Temp Pulse Resp BP Pulse Ox 98.4 F 98 H 20 120/81 99 05/10/18 23:59 05/10/18 23:59 05/10/18 23:59 05/10/18 23:59 05/10/18 23:59 - Medications Medications: Current Medications Atorvastatin Calcium (Lipitor) 10 mg PO HS [facility] Clonidine HCl (Catapres) 0.1 mg PO TID PRN PRN Reason: hypertension Dextrose (Dextrose 50% Inj) 0 ml IV STAT PRN; Protocol PRN Reason: Hypoglycemia Protocol Dextrose (Glutose 15) 0 gm PO ONCE PRN; Protocol PRN Reason: Hypoglycemia Protocol Docusate Sodium (Colace) 100 mg PO DAILY [facility] Last Admin: 05/10/18 17:52 Dose: 100 mg Enoxaparin Sodium (Lovenox) 40 mg SC DAILY [facility]; Protocol Gabapentin (Neurontin) 600 mg PO DAILY [facility] Last Admin: 05/10/18 17:52 Dose: 600 mg Glucagon (Glucagen Diagnostic Kit) 0 mg IM STAT PRN; Protocol PRN Reason: Hypoglycemia Protocol Sodium Chloride (Sodium Chloride 0.45%) 1,000 mls @ 150 mls/hr IV .Q6H40M [facility] Stop: 05/11/18 16:17 Last Admin: 05/11/18 05:52 Dose: Not Given Insulin Human Lispro (Humalog) 0 units SC ACCU-CHECK [facility]; Protocol Last Admin: 05/11/18 06:29 Dose: Not Given Metoclopramide HCl (Reglan) 10 mg IVP Q6H [facility] Last Admin: 05/11/18 01:28 Dose: 10 mg Ondansetron HCl (Zofran Inj) 4 mg IVP Q4 PRN PRN Reason: Nausea/Vomiting Pantoprazole Sodium (Protonix Inj) 40 mg IVP DAILY [facility] Last Admin: 05/10/18 15:08 Dose: 40 mg - Labs Labs: 05/10/18 08:10 05/10/18 08:10 - Constitutional Appears: Non-toxic, No Acute Distress - Head Exam Head Exam: ATRAUMATIC, NORMAL INSPECTION - Eye Exam Eye Exam: EOMI - ENT Exam ENT Exam: Mucous Membranes Dry - Respiratory Exam Respiratory Exam: Clear to Ausculation Bilateral, NORMAL BREATHING PATTERN. absent: Rales, Rhonchi, Wheezes - Cardiovascular Exam Cardiovascular Exam: RRR, +S1, +S2 - GI/Abdominal Exam GI & Abdominal Exam: Soft, Normal Bowel Sounds. absent: Tenderness - Extremities Exam Extremities Exam: Normal Inspection - Neurological Exam Neurological Exam: Alert, Awake, Oriented x3 Assessment and Plan - Assessment and Plan (Free Text) Assessment: Pt is a 52 yo M with a pmhx of Gastroparesis, IDDM2, Gastritis, HTN, HLD, peripheral neuropathy presented to ED with nausea and vomiting for 3 days admitted for evaluation of Intractable vomiting, Diabetic gastroparesis, Electrolyte imbalance, Dehydration and HTN Plan: Intractable vomiting Likely 2/2 diabetic gastroparesis, improving Advance diet to full liquid diabetic diet c/w Reglan Q6h, Zofran Q4 PRN start IVF Nacl + 20K @ 110ml/hr Lipase wnl continue to monitor-advance diet as tolerated gastroparesis diet F/u BMP in AM Hypokalemia 2/2 to intractable vomiting, K today-3.2 Replaced with 40Kdur Once start IVF Nacl + 20K @ 110ml/hr continue to monitor F/u BMP in AM Dehydration 2/2 to intractable vomiting, improving start IVF Nacl + 20K @ 110ml/hr F/u BMP in AM IDDM2 chronic, stable Accucheck 129 s/p 8 units Humalin R in ED Last HGA1c 7.8 (04/23/18) Accuchecks ACHS Insulin sliding scale Hypoglycemic protocol HTN chronic, stable EKG-sinus tachy start home meds Amlodipine/Benzapril 10-40mg QD c/w clonidine 0.1mg PRN Constipation acute, stable s/p Dulcolax supp s/p Colace 100mg Peripheral Neuropathy chronic, 2/2 to diabetes c/w Gabapentin 600mg QD HLD chronic c/w Atorvastatin 10mg Diet Full liquid-diabetic DVT PPX Lovenox 40mg SC QD GI PPX Protonix 40mg IVP Code Status Full code Case reviewed and discussed with Dr. Marsha Herrera PGY1
[2018-05-11 07:03] LABS: ALB/GLOB RATIO 1.4 (1.0-2.1); ALT/SGPT 28 U/L (21-72); AST/SGOT 17 U/L (17-59); BLOOD UREA NITROGEN 26 mg/dl (9-20); CALCIUM 9.2 mg/dL (8.4-10.2); GFR NON-AFRICAN AMERICAN > 60
[2018-05-11] MEDS ORDERED: Potassium Chloride 20 mEq ER Tab PO ONE (07:07)
[2018-05-11] MEDS: Enoxaparin 40 mg Syringe SC SCH (08:38)
[2018-05-11] MEDS: Potassium Chl 20 mEq in NS 1,000 ML IV SCH ×2 (14:55→23:24)
[2018-05-12 01:29] VITALS: RESP 19
[2018-05-12] MEDS: Potassium Chl 20 mEq in NS 1,000 ML IV SCH ×2 (02:09→08:50)
[2018-05-12] MEDS: Insulin Lispro (humaLOG) 100 Units/ml Inj SC SCH ×2 (06:30→12:39)
[2018-05-12 07:25] LABS: BLOOD UREA NITROGEN 17 mg/dl (9-20); CALCIUM 9.2 mg/dL (8.4-10.2); GFR NON-AFRICAN AMERICAN > 60
[2018-05-12 08:28] VITALS: BP 134/73; PULSE 71; TEMP 98.6; O2SAT 97
[2018-05-12] MEDS: Enoxaparin 40 mg Syringe SC SCH (08:49)
--- NOTE | 2018-05-12 10:35 | CP.PCM.DIS ---
Provider - Provider Date of Admission: 05/10/18 09:53 Attending physician: Emily Cevallos DO Primary care physician: Dr. Audrey Larson Consults: None Time Spent in preparation of Discharge (in minutes): 15 Diagnosis - Discharge Diagnosis (1) Intractable vomiting Status: Acute Comment: Resolved, tolerating regular diet. Keep hydrated (2) Diabetic gastroparesis associated with type 2 diabetes mellitus Status: Acute Comment: Tolerating regular diet. Gastroparesis diet verbal and written education given to patient, discussed low fat, low fiber, small frequent meals, sitting up with eating, walking around after eating. Outpt follow up with GI Dr. Howard [place] for further management (3) Dehydration Status: Acute Priority: High Comment: Resolved, Keep hydrated (4) Hypokalemia Status: Acute Comment: Resolved. K today 4.3 (5) Insulin dependent diabetes mellitus Status: Chronic Comment: controlled. continue with home insulin (6) Hypertension Status: Chronic Comment: controlled. c/w Amlodipine/Benzapril (7) Hyperlipidemia Status: Chronic Comment: controlled. c/w Atorvastatin (8) Peripheral neuropathy Status: Chronic Comment: controlled. c/w Gabapentin (9) Constipation Status: Chronic Comment: c/w stool softeners Hospital Course - Lab Results Lab Results: Most Recent Lab Values WBC 9.7 K/uL (4.8-10.8) 05/10/18 08:10 RBC 4.95 Mil/uL (4.40-5.90) 05/10/18 08:10 Hgb 14.9 g/dL (12.0-18.0) 05/10/18 08:10 Hct 43.5 % (35.0-51.0) 05/10/18 08:10 MCV 87.8 fl (80.0-94.0) 05/10/18 08:10 MCH 30.2 pg (27.0-31.0) 05/10/18 08:10 MCHC 34.4 g/dL (33.0-37.0) 05/10/18 08:10 RDW 13.3 % (11.5-14.5) 05/10/18 08:10 Plt Count 287 K/uL (130-400) 05/10/18 08:10 MPV 7.4 fl (7.2-11.7) 05/10/18 08:10 Neut % (Auto) 81.9 % (50.0-75.0) H 05/10/18 08:10 Lymph % (Auto) 10.5 % (20.0-40.0) L 05/10/18 08:10 [place] % (Auto) 7.0 % (0.0-10.0) 05/10/18 08:10 Eos % (Auto) 0.1 % (0.0-4.0) 05/10/18 08:10 Baso % (Auto) 0.5 % (0.0-2.0) 05/10/18 08:10 Neut # (Auto) 8.0 K/uL (1.8-7.0) H 05/10/18 08:10 Lymph # (Auto) 1.0 K/uL (1.0-4.3) 05/10/18 08:10 [place] # (Auto) 0.7 K/uL (0.0-0.8) 05/10/18 08:10 Eos # (Auto) 0.0 K/uL (0.0-0.7) 05/10/18 08:10 Baso # (Auto) 0.0 K/uL (0.0-0.2) 05/10/18 08:10 Sodium 133 mmol/l (132-148) 05/12/18 05:55 Potassium 4.3 MMOL/L (3.6-5.0) 05/12/18 05:55 Chloride 95 mmol/L (98-107) L 05/12/18 05:55 Carbon Dioxide 28 mmol/L (22-30) 05/12/18 05:55 Anion Gap 14 (10-20) 05/12/18 05:55 BUN 17 mg/dl (9-20) 05/12/18 05:55 Creatinine 0.9 mg/dl (0.8-1.5) 05/12/18 05:55 Est GFR ( Amer) > 60 05/12/18 05:55 Est GFR (Non-Af Amer) > 60 05/12/18 05:55 POC Glucose (mg/dL) 148 mg/dL (65-110) H 05/12/18 05:27 Random Glucose 161 mg/dL (75-110) H 05/12/18 05:55 Calcium 9.2 mg/dL (8.4-10.2) 05/12/18 05:55 Total Bilirubin 2.2 mg/dl (0.2-1.3) H 05/11/18 06:35 AST 17 U/L (17-59) D 05/11/18 06:35 ALT 28 U/L (21-72) 05/11/18 06:35 Alkaline Phosphatase 74 U/L (38-126) 05/11/18 06:35 Total Protein 7.0 G/DL (6.3-8.2) 05/11/18 06:35 Albumin 4.0 g/dL (3.5-5.0) 05/11/18 06:35 Globulin 2.9 gm/dL (2.2-3.9) 05/11/18 06:35 Albumin/Globulin Ratio 1.4 (1.0-2.1) 05/11/18 06:35 Lipase 72 U/L (23-300) 05/10/18 08:10 - Hospital Course Hospital Course: Pt is a 52 yo M with a pmhx of Gastroparesis, IDDM2, Gastritis, HTN, HLD, peripheral neuropathy presented to ED on 05/10/18 with nausea and vomiting, admitted for evaluation of Intractable vomiting, Diabetic gastroparesis, Electrolyte imbalance, Dehydration and HTN. Pt reported 10 episodes of yellow NBNB emesis after he ate sausage, eggs and pancakes 3 days prior to admission. It persisted and progressively got worse so he came to ED. He was supposed to follow up with GI outpt Dr. Howard in [place] for gastroparesis but due to these symptoms he hasnt been able to. The pt has been admitted 4x in the last 3 mo due to similar episodes. On admission Accucheck was 392 received regular insulin and sliding scale, Zofran 4mg , Reglan 10mg, IVF's, EKG-sinus tachy 106, CBC, CMP. Today patient is tolerating a gastroparesis diet (low fiber low fat). Pt passing gas without difficulty. Denies nausea, vomiting, abdominal pain, fever/chills, headaches, changes in vision, CP/SOB/palpitations, diarrhea, or urinary symptoms. Pt is hemodynamically stable for discharge with education material verbalized and written for a gastroparesis diet. Pt will follow up with Dr. Larson in 1 week and follow up with GI outpt Dr. Howard in [place] for further gastroparesis work up. - Date & Time of H&P Date of H&P: 05/10/18 Time of H&P: 06:33 Discharge Exam - Head Exam Head Exam: ATRAUMATIC, NORMAL INSPECTION - Eye Exam Eye Exam: EOMI - ENT Exam ENT Exam: Mucous Membranes Moist - Respiratory Exam Respiratory Exam: Clear to PA & Lateral. absent: Rales, Rhonchi, Wheezes - Cardiovascular Exam Cardiovascular Exam: RRR, +S1, +S2 - GI/Abdominal Exam GI & Abdominal Exam: Hyperactive Bowel Sounds, Soft. absent: Firm, Guarding, Re bound, Rigid, Tenderness - Extremities Exam Extremities exam: normal inspection - Neurological Exam Neurological exam: Alert, Oriented x3 Discharge Plan - Discharge Medications Prescriptions: Metoclopramide HCl [Reglan] 10 mg PO TID PRN 7 Days tablet PRN Reason: Nausea/Vomiting Ondansetron [Zofran] 4 mg PO PRN PRN 7 Days #21 tab PRN Reason: Nausea/Vomiting - Follow Up Plan Condition: FAIR Disposition: HOME/ ROUTINE Instructions: Dehydration, Adult (DC), Hypokalemia (DC), Nausea and Vomiting, Adult (DC), Dehydration (DC), Hypokalemia (DC), Hypokalemia (GEN) Additional Instructions: follow up with primary MD Dr. Larson in [address] [facility] as out patient Referrals: [facility] [Outside] Audrey Larson MD [Staff Provider] - Guillermo Howard MD [Medical Doctor] -
== END 2018-05-12 14:42 | disposition home or self-care (01) ==
LOC: H.ER 07:28 → H.ERHOLD 09:53 → H.MEDSURG1 15:20
PROVIDERS: ADMIT Family Medicine; ATTEND Student in an Organized Health Care Education/Training Program
DX: E11.43 Type 2 diabetes mellitus with diabetic autonomic (poly)neuropathy (principal); K31.84 Gastroparesis; I10 Essential (primary) hypertension; E78.5 Hyperlipidemia, unspecified; Z79.4 Long term (current) use of insulin; Z79.82 Long term (current) use of aspirin; J45.909 Unspecified asthma, uncomplicated; K59.09 Other constipation; K29.70 Gastritis, unspecified, without bleeding; E86.0 Dehydration; E87.6 Hypokalemia; E87.3 Alkalosis; E78.00 Pure hypercholesterolemia, unspecified
CPT/HCPCS: 36415; 80048; 80053; 82948; 83690; 85025; 93005; 96365; 96366; 96372; 96374; 99283; C9113; G0378; J1650; J2405; J2765; J3480; J7030

== ENCOUNTER 2018-06-25 11:13 | Emergency (ER) | payer OTHER ==
[2018-06-25 11:18] VITALS: BMI 21.6
[2018-06-25] MEDS ORDERED: Tdap Vaccine 0.5 ml Vial (10-64 yrs) IM ONE ×2 (11:43→12:05)
--- NOTE | 2018-06-25 11:53 | ED PDOC ---
HPI: General Adult Time Seen by Provider: 06/25/18 11:46 Chief Complaint (Nursing): Lower Extremity Problem/Injury Chief Complaint (Provider): foot wound History Per: Patient (52 y/o male here with right foot injury after nail puncture. Was seen by Dr Bryan today and sent to have bloodwork/xry/tetanus. Seen in podiatry clinic and had wound culture done at that time. Has had xry done in radiology. Patient denies any fevers/chills/etc) Past Medical History Reviewed: Historical Data, Nursing Documentation, Vital Signs Vital Signs: Last Vital Signs Temp 98.8 F 06/25/18 11:15 Pulse 107 H 06/25/18 11:15 Resp 16 06/25/18 11:15 BP 148/90 06/25/18 11:15 Pulse Ox 97 06/25/18 11:15 - Medical History PMH: Arthritis, Asthma, Diabetes, Gastritis (H Pylori), HTN, Hypercholesterolemia Denies: Alzheimer's Disease, Anemia, Anxiety, Atrial Fibrillation, Bipolar Disorder, Bronchitis, CAD, Cardia Arrhythmia, CHF, COPD, Crohn's Disease, Dementia, Depression, Diverticulitis, Emphysema, Fractures, Gall Bladder Disease , HIV, Hyperthyroidism, Hypothyroidism, Kidney Stones, Migraine, Mitral Valve Prolapse, Multiple Sclerosis, Osteoporosis, Pancreatitis, Paranoia, Parkinson's Disease, Peripheral Edema, Pneumonia, Post Traumatic Stress Disorder, Pulmonary Embolism, Chronic Kidney Disease, Rheumatoid Arthritis, Schizophrenia, Seizures, Sickle Cell Disease, Sexually Transmitted Disease, Sleep Apnea, TIA - Surgical History Surgical History: Endoscopy Denies: Appendectomy, CABG, Carotid Endarterectomy, Cholecystectomy, Coronary Stent, Pacemaker, Tonsillectomy - Family History Family History: States: Unknown Family Hx, Diabetes, Hypertension - Immunization History Hx Tetanus Toxoid Vaccination: No Hx Influenza Vaccination: No Hx Pneumococcal Vaccination: No - Home Medications Home Medications: Ambulatory Orders Medication Instructions Recorded Amlodipine Besylate/Benazepril 1 cap PO DAILY 01/19/18 [Lotrel 10-40 mg Capsule] Aspirin [Ecotrin] 81 mg PO DAILY 01/19/18 Atorvastatin [Lipitor] 10 mg PO HS 01/19/18 Gabapentin [Neurontin] 600 mg PO HS 01/19/18 Insulin Glargine,Hum.rec.anlog 24 unit SC HS 01/19/18 [Lantus Solostar] Insulin Lispro [humALOG] 4 unit SC AC 01/19/18 MetFORMIN [glucoPHAGE] 1,000 mg PO BID 01/19/18 Omeprazole 20 mg PO DAILY 01/19/18 Metoclopramide HCl [Reglan] 10 mg PO TID PRN 7 Days tablet 05/12/18 Ondansetron [Zofran] 4 mg PO Q8 PRN 05/31/18 - Allergies Allergies/Adverse Reactions: Allergies Allergy/AdvReac Type Severity Reaction Status Date / Time Penicillins Allergy SWELLING Verified 04/15/18 19:29 strawberry Allergy SWELLING Verified 04/15/18 19:29 Review of Systems ROS Statement: Except As Marked, All Systems Reviewed And Found Negative Physical Exam - Reviewed Nursing Documentation Reviewed: Yes Vital Signs Reviewed: Yes - Physical Exam Appears: Positive for: Well, Non-toxic, No Acute Distress Head Exam: Positive for: ATRAUMATIC, NORMAL INSPECTION, NORMOCEPHALIC Skin: Positive for: Normal Color, Warm, DRY Eye Exam: Positive for: EOMI, Normal appearance, PERRL ENT: Positive for: Normal ENT Inspection Neck: Positive for: Normal, Painless ROM Cardiovascular/Chest: Positive for: Regular Rate, Rhythm Respiratory: Positive for: CNT, Normal Breath Sounds Gastrointestinal/Abdominal: Positive for: Normal Exam, Soft Back: Positive for: Normal Inspection Extremity: Positive for: Normal ROM Neurological/Psych: Positive for: Awake, Alert, Normal Tone - Laboratory Results Result Diagrams: 06/25/18 11:30 06/25/18 11:30 - ECG O2 Sat by Pulse Oximetry: 97 Disposition - Clinical Impression Clinical Impression: Wound of foot - Patient ED Disposition Is Patient to be Admitted: No - Disposition Disposition: Routine/Home Disposition Time: 12:20 Condition: FAIR Additional Instructions: f/u with Dr. Bryan. Instructions: Wound Care (DC)
[2018-06-25 12:05] LABS: BASO % 0.5 % (0.0-2.0); EOS # 0.1 K/uL (0.0-0.7); EOS % 2.1 % (0.0-4.0); HEMOGLOBIN 12.4 g/dL (12.0-18.0); LYMPH # 1.5 K/uL (1.0-4.3); MEAN CELL VOLUME 86.7 fl (80.0-94.0); MEAN CORPUSCULAR HEMOGLOBIN 29.5 pg (27.0-31.0); MEAN CORPUSCULAR HGB CONC 34.1 g/dL (33.0-37.0); MEAN PLATELET VOLUME 6.7 fl (7.2-11.7); MONO # 0.8 K/uL (0.0-0.8); MONO % 11.9 % (0.0-10.0); NEUT % 62.5 % (50.0-75.0); NRBC % 0.1 % (0.0-0.0); RBC 4.2 Mil/uL (4.40-5.90); RED CELL DISTRIBUTION WIDTH 13.5 % (11.5-14.5); WHITE BLOOD COUNT 6.4 K/uL (4.8-10.8)
[2018-06-25 12:06] LABS: VENOUS BLOOD GAS BASE EXCESS 1.5 mmol/L (0.0-2.0); VENOUS BLOOD GAS PCO2 46 mmHg (40-60); VENOUS BLOOD GAS PO2 33 mm/Hg (30-55); VENOUS BLOOD PH 7.38 (7.32-7.43)
[2018-06-25 12:34] LABS: ALB/GLOB RATIO 1.4 (1.0-2.1); ALBUMIN 4.6 g/dL (3.5-5.0); ALT/SGPT 34 U/L (21-72); AST/SGOT 28 U/L (17-59); BLOOD UREA NITROGEN 16 mg/dl (9-20); CALCIUM 9.7 mg/dL (8.4-10.2); GFR NON-AFRICAN AMERICAN > 60
[2018-06-25 14:24] VITALS: BP 129/80; PULSE 78; RESP 18; TEMP 98
[2018-06-25 19:40] VITALS: O2SAT 97
== END 2018-06-25 12:30 | disposition home or self-care (01) ==
LOC: H.ER 11:13
DX: S91.331D Puncture wound without foreign body, right foot, subsequent encounter (principal); E11.9 Type 2 diabetes mellitus without complications; Z79.4 Long term (current) use of insulin; I10 Essential (primary) hypertension; Z79.82 Long term (current) use of aspirin; Z88.0 Allergy status to penicillin; J45.909 Unspecified asthma, uncomplicated; Z23 Encounter for immunization

== ENCOUNTER 2018-06-27 09:08 | Emergency (ER) | payer OTHER ==
[2018-06-27 09:11] VITALS: BMI 21.1
[2018-06-27 09:13] VITALS: RESP 22; TEMP 97.8; O2SAT 96
[2018-06-27] MEDS ORDERED: Sodium Chloride 0.9% 1,000 ML IV STA ×2 (09:41)
--- NOTE | 2018-06-27 09:41 | ED PDOC ---
HPI:Nausea, Vomiting, Diarrhea Time Seen by Provider: 06/27/18 09:24 Chief Complaint (Nursing): Abdominal Pain Chief Complaint (Provider): Vomiting History Per: Patient History/Exam Limitations: no limitations Onset/Duration Of Symptoms: Hrs Current Symptoms Are (Timing): Still Present Additional Complaint(s): Patient is a 52 y/o male with a PMHx of arthritis, asthma, HTN, hypercholesterolemia, diabetes, gastroparesis, and gastritis who was brought into the ED for evaluation of multiple episodes of vomiting onset earlier today. Patient was recently admitted for a diabetic food ulcer and was discharged yesterday after symptoms had improved. However, today patient returns to the ED due to recurrent nausea, vomiting, and abdominal pain. Patient also complains of a right foot ulcer that is currently dressed. Patient denies diarrhea. PCP: Dr. Sandor Ashford Past Medical History Reviewed: Historical Data, Nursing Documentation, Vital Signs Vital Signs: Last Vital Signs Temp 97.8 F 06/27/18 09:11 Pulse 136 H 06/27/18 09:11 Resp 22 06/27/18 09:11 BP 161/103 H 06/27/18 09:11 Pulse Ox 96 06/27/18 09:11 - Medical History PMH: Arthritis, Asthma, Diabetes, Gastritis (H Pylori), HTN, Hypercholeste rolemia Denies: Alzheimer's Disease, Anemia, Anxiety, Atrial Fibrillation, Bipolar Disorder, Bronchitis, CAD, Cardia Arrhythmia, CHF, COPD, Crohn's Disease, Dementia, Depression, Diverticulitis, Emphysema, Fractures, Gall Bladder Disease, HIV, Hyperthyroidism, Hypothyroidism, Kidney Stones, Migraine, Mitral Valve Prolapse, Multiple Sclerosis, Osteoporosis, Pancreatitis, Paranoia, Parkinson's Disease, Peripheral Edema, Pneumonia, Post Traumatic Stress Disorder, Pulmonary Embolism, Chronic Kidney Disease, Rheumatoid Arthritis, Schizophrenia, Seizures, Sickle Cell Disease, Sexually Transmitted Disease, Sleep Apnea, TIA Other PMH: Gastroparesis - Surgical History Surgical History: Endoscopy Denies: Appendectomy, CABG, Carotid Endarterectomy, Cholecystectomy, Coronary Stent, Pacemaker, Tonsillectomy - Family History Family History: States: Diabetes, Hypertension - Immunization History Hx Tetanus Toxoid Vaccination: No Hx Influenza Vaccination: No Hx Pneumococcal Vaccination: No - Home Medications Home Medications: Ambulatory Orders Medication Instructions Recorded Amlodipine Besylate/Benazepril 1 cap PO DAILY 01/19/18 [Lotrel 10-40 mg Capsule] Aspirin [Ecotrin] 81 mg PO DAILY 01/19/18 Atorvastatin [Lipitor] 10 mg PO HS 01/19/18 Gabapentin [Neurontin] 600 mg PO HS 01/19/18 Insulin Glargine,Hum.rec.anlog 24 unit SC HS 01/19/18 [Lantus Solostar] Insulin Lispro [humALOG] 4 unit SC AC 01/19/18 MetFORMIN [glucoPHAGE] 1,000 mg PO BID 01/19/18 Omeprazole 20 mg PO DAILY 01/19/18 Ondansetron [Zofran] 4 mg PO Q8 PRN 05/31/18 Ciprofloxacin HCl [Cipro] 500 mg PO BID #14 tablet 06/27/18 Metoclopramide HCl [Reglan] 10 mg PO TID PRN 7 Days tablet 06/27/18 - Allergies Allergies/Adverse Reactions: Allergies Allergy/AdvReac Type Severity Reaction Status Date / Time Penicillins Allergy SWELLING Verified 06/27/18 09:19 strawberry Allergy SWELLING Verified 06/27/18 09:19 Review of Systems ROS Statement: Except As Marked, All Systems Reviewed And Found Negative Gastrointestinal: Positive for: Nausea, Vomiting, Abdominal Pain. Negative for: Diarrhea Physical Exam - Reviewed Nursing Documentation Reviewed: Yes Vital Signs Reviewed: Yes - Physical Exam Appears: Positive for: No Acute Distress Head Exam: Positive for: ATRAUMATIC, NORMAL INSPECTION, NORMOCEPHALIC Skin: Positive for: Normal Color, Warm, DRY Eye Exam: Positive for: EOMI, Normal appearance, PERRL ENT: Positive for: Normal ENT Inspection, Other (Dry Mucous Membranes) Neck: Positive for: Normal, Painless ROM, Supple Cardiovascular/Chest: Positive for: Tachycardia (with regular rhythm) Respiratory: Positive for: Normal Breath Sounds. Negative for: Respiratory Distress Gastrointestinal/Abdominal: Positive for: Normal Exam, Soft. Negative for: Tenderness Back: Positive for: Normal Inspection. Negative for: L CVA Tenderness, R CVA Tenderness, Vertebral Tenderness Extremity: Positive for: Normal ROM, Other (Right Foot Ulcer). Negative for: Pedal Edema, Deformity Neurological/Psych: Positive for: Alert, Oriented (x3) - Laboratory Results Result Diagrams: 06/27/18 09:49 06/27/18 09:49 - ECG ECG Rhythm: Positive for: Sinus Tachycardia Rate: 114 O2 Sat by Pulse Oximetry: 96 (RA) Pulse Ox Interpretation: Normal - Progress Re-evaluation Time: 13:00 Condition: Re-examined, Improved Medical Decision Making Medical Decision Making: Time: 925 Impression: Vomiting DDx includes but not limited to gastroparesis, dehydration, and electrolyte abnormality; r/o pancreatitis and DKA Plan: Glucose, POC Routine CMP Drug Screen, Urine Lipase Urine Dipstick CBC IV Fluids Pepcid 20 mg IVP Reglan 10 mg IVP Zofran 4 mg IVP IV Insertion Scribe Attestation: Documented by Dave Krueger, acting as a scribe for Dino Ferris MD. Provider Scribe Attestation: All medical record entries made by the Scribe were at my direction and persona lly dictated by me. I have reviewed the chart and agree that the record accurately reflects my personal performance of the history, physical exam, medical decision making, and the department course for this patient. I have also personally directed, reviewed, and agree with the discharge instructions and disposition. Disposition - Clinical Impression Clinical Impression: Gastroparesis, Cannabis abuse, Hyperglycemia, Foot ulcer, right - Patient ED Disposition Is Patient to be Admitted: No Doctor Will See Patient In The: Office Counseled Patient/Family Regarding: Studies Performed, Diagnosis, Need For Followup - Disposition Referrals: Audrey Larson MD [Family Provider] - Disposition: Routine/Home Disposition Time: 13:12 Condition: GOOD Additional Instructions: KERI BECERRIL, thank you for letting us take care of you today. Your provider was Dino Ferris MD and you were treated for NAUSEOUS. The emergency medical care you received today was directed at your acute symptoms. If you were prescribed any medication, please fill it and take as directed. It may take sev eral days for your symptoms to resolve. Return to the Emergency Department if your symptoms worsen, do not improve, or if you have any other problems. Please contact your doctor or call one of the physicians/clinics you have been referred to that are listed on the Patient Visit Information form that is included in your discharge packet. Bring any paperwork you were given at discharge with you along with any medications you are taking to your follow up visit. Our treatment cannot replace ongoing medical care by a primary care provider outside of the emergency department. Thank you for allowing the [facility] team to be part of your care today. Prescriptions: Ciprofloxacin HCl [Cipro] 500 mg PO BID #14 tablet Metoclopramide HCl [Reglan] 10 mg PO TID PRN 7 Days tablet PRN Reason: Nausea/Vomiting Instructions: Diabetic Foot Ulcer (DC), Gastroparesis (Delayed Gastric Emptying), Marijuana Use and Addiction Forms: [employer] (Malagasy)
[2018-06-27 10:00] LABS: BASO % 0.2 % (0.0-2.0); HEMOGLOBIN 13.6 g/dL (12.0-18.0); LYMPH # 1.2 K/uL (1.0-4.3); LYMPH % 15.3 % (20.0-40.0); MEAN CELL VOLUME 85.3 fl (80.0-94.0); MEAN CORPUSCULAR HEMOGLOBIN 29.7 pg (27.0-31.0); MEAN CORPUSCULAR HGB CONC 34.8 g/dL (33.0-37.0); MEAN PLATELET VOLUME 7.3 fl (7.2-11.7); MONO # 0.6 K/uL (0.0-0.8); MONO % 8.2 % (0.0-10.0); NEUT % 76.3 % (50.0-75.0); RBC 4.59 Mil/uL (4.40-5.90); RED CELL DISTRIBUTION WIDTH 13.4 % (11.5-14.5); WHITE BLOOD COUNT 7.9 K/uL (4.8-10.8)
[2018-06-27 10:12] LABS: ALB/GLOB RATIO 1.3 (1.0-2.1); ALBUMIN 5.4 g/dL (3.5-5.0); ALT/SGPT 28 U/L (21-72); AST/SGOT 40 U/L (17-59); BLOOD UREA NITROGEN 32 mg/dl (9-20); CALCIUM 10.5 mg/dL (8.4-10.2); GFR NON-AFRICAN AMERICAN > 60; LIPASE 215 U/L (23-300)
[2018-06-27] MEDS ORDERED: Insulin Regular 100 units/ml IV STA (11:26)
[2018-06-27 13:02] LABS: BARBITURATES, UR NEGATIVE (NEGATIVE); BENZODIAZEPINES, UR NEGATIVE (NEGATIVE); OPIATES, UR NEGATIVE (NEGATIVE); PHENCYCLIDINE, UR NEGATIVE (NEGATIVE)
[2018-06-27 15:00] VITALS: PULSE 93
[2018-06-27 15:34] VITALS: BP 166/103
== END 2018-06-27 15:15 | disposition home or self-care (01) ==
LOC: H.ER 09:08
DX: E11.65 Type 2 diabetes mellitus with hyperglycemia (principal); K31.84 Gastroparesis; F12.10 Cannabis abuse, uncomplicated; E11.621 Type 2 diabetes mellitus with foot ulcer; E11.43 Type 2 diabetes mellitus with diabetic autonomic (poly)neuropathy; E78.00 Pure hypercholesterolemia, unspecified; I10 Essential (primary) hypertension; Z79.4 Long term (current) use of insulin; Z88.0 Allergy status to penicillin
CPT/HCPCS: 80053; 80324; 80345; 80346; 80349; 80353; 80358; 80361; 82948; 83690; 83992; 85025; 96374; 96375; 99284; J2405; J2765; J7030

== ENCOUNTER 2018-06-28 13:31 | Observation (INO) | payer OTHER ==
[2018-06-28] MEDS ORDERED: Sodium Chloride 0.9% 1,000 ML IV STA (13:48)
--- NOTE | 2018-06-28 13:59 | ED PDOC ---
HPI: General Adult Time Seen by Provider: 06/28/18 13:58 Chief Complaint (Nursing): GI Problem Chief Complaint (Provider): vomiting History Per: Patient (52 y/o male h/o dm/gastropareis/ foot ulcer noted with vomiting intractable despite evalaution and medication yesterday. Patient does not have abd pain. No fevers chills. unable to take medication for wound.) Past Medical History Reviewed: Historical Data, Nursing Documentation, Vital Signs Vital Signs: Last Vital Signs Temp 97.8 F 06/28/18 13:33 Pulse 97 H 06/28/18 13:33 Resp 17 06/28/18 13:33 BP Pulse Ox 97 06/28/18 13:33 - Medical History PMH: Arthritis, Asthma, Diabetes, Gastritis (H Pylori), HTN, Hypercholesterolemia Denies: Alzheimer's Disease, Anemia, Anxiety, Atrial Fibrillation, Bipolar Disorder, Bronchitis, CAD, Cardia Arrhythmia, CHF, COPD, Crohn's Disease, Dementia, Depression, Diverticulitis, Emphysema, Fractures, Gall Bladder Dis ease, HIV, Hyperthyroidism, Hypothyroidism, Kidney Stones, Migraine, Mitral Valve Prolapse, Multiple Sclerosis, Osteoporosis, Pancreatitis, Paranoia, Parkinson's Disease, Peripheral Edema, Pneumonia, Post Traumatic Stress Disorder, Pulmonary Embolism, Chronic Kidney Disease, Rheumatoid Arthritis, Sc hizophrenia, Seizures, Sickle Cell Disease, Sexually Transmitted Disease, Sleep Apnea, TIA - Surgical History Surgical History: Endoscopy Denies: Appendectomy, CABG, Carotid Endarterectomy, Cholecystectomy, Coronary Stent, Pacemaker, Tonsillectomy - Family History Family History: States: Unknown Family Hx, Diabetes, Hypertension - Immunization History Hx Tetanus Toxoid Vaccination: No Hx Influenza Vaccination: No Hx Pneumococcal Vaccination: No - Home Medications Home Medications: Ambulatory Orders Medication Instructions Recorded Amlodipine Besylate/Benazepril 1 cap PO DAILY 01/19/18 [Lotrel 10-40 mg Capsule] Aspirin [Ecotrin] 81 mg PO DAILY 01/19/18 Atorvastatin [Lipitor] 10 mg PO HS 01/19/18 Gabapentin [Neurontin] 600 mg PO HS 01/19/18 Insulin Glargine,Hum.rec.anlog 24 unit SC HS 01/19/18 [Lantus Solostar] Insulin Lispro [humALOG] 4 unit SC AC 01/19/18 MetFORMIN [glucoPHAGE] 1,000 mg PO BID 01/19/18 Omeprazole 20 mg PO DAILY 01/19/18 Ondansetron [Zofran] 4 mg PO Q8 PRN 05/31/18 Ciprofloxacin HCl [Cipro] 500 mg PO BID #14 tablet 06/27/18 Metoclopramide HCl [Reglan] 10 mg PO TID PRN 7 Days tablet 06/27/18 - Allergies Allergies/Adverse Reactions: Allergies Allergy/AdvReac Type Severity Reaction Status Date / Time Penicillins Allergy SWELLING Verified 06/27/18 09:19 strawberry Allergy SWELLING Verified 06/27/18 09:19 Review of Systems ROS Statement: Except As Marked, All Systems Reviewed And Found Negative Physical Exam - Reviewed Nursing Documentation Reviewed: Yes Vital Signs Reviewed: Yes - Physical Exam Appears: Positive for: Well, Non-toxic, No Acute Distress Head Exam: Positive for: ATRAUMATIC, NORMAL INSPECTION, NORMOCEPHALIC Skin: Positive for: Normal Color, Warm, DRY Eye Exam: Positive for: EOMI, Normal appearance, PERRL ENT: Positive for: Normal ENT Inspection Neck: Positive for: Normal, Painless ROM Cardiovascular/Chest: Positive for: Regular Rate, Rhythm Respiratory: Positive for: CNT, Normal Breath Sounds Gastrointestinal/Abdominal: Positive for: Normal Exam, Soft Back: Positive for: Normal Inspection Extremity: Positive for: Normal ROM Neurological/Psych: Positive for: Awake, Alert, Normal Tone - Laboratory Results Result Diagrams: 06/28/18 14:45 06/28/18 14:45 - ECG O2 Sat by Pulse Oximetry: 97 Disposition - Clinical Impression Clinical Impression: Intractable vomiting, Gastroparesis - Disposition Disposition Time: 15:42 Condition: FAIR - Pt Status Changed To: Hospital Disposition Of: Observation
[2018-06-28] MEDS ORDERED: Ciprofloxacin 400mg/200ml D5W 400 MG/200 ML BAG IVPB STA (14:00)
[2018-06-28 14:55] LABS: BASO # 0.1 K/uL (0.0-0.2); BASO % 0.5 % (0.0-2.0); HEMOGLOBIN 12.3 g/dL (12.0-18.0); LYMPH # 1.6 K/uL (1.0-4.3); LYMPH % 13.5 % (20.0-40.0); MEAN CELL VOLUME 86.3 fl (80.0-94.0); MEAN CORPUSCULAR HEMOGLOBIN 29.4 pg (27.0-31.0); MEAN CORPUSCULAR HGB CONC 34.1 g/dL (33.0-37.0); MEAN PLATELET VOLUME 6.7 fl (7.2-11.7); MONO # 0.5 K/uL (0.0-0.8); MONO % 4.7 % (0.0-10.0); NEUT # 9.4 K/uL (1.8-7.0); NEUT % 81.3 % (50.0-75.0); NRBC % 0.1 % (0.0-0.0); RBC 4.18 Mil/uL (4.40-5.90); RED CELL DISTRIBUTION WIDTH 13.1 % (11.5-14.5); WHITE BLOOD COUNT 11.6 K/uL (4.8-10.8)
[2018-06-28 15:05] LABS: VENOUS BLOOD GAS BASE EXCESS 6.6 mmol/L (0.0-2.0); VENOUS BLOOD GAS PCO2 50 mmHg (40-60); VENOUS BLOOD GAS PO2 22 mm/Hg (30-55); VENOUS BLOOD PH 7.42 (7.32-7.43)
[2018-06-28] MEDS ORDERED: Ciprofloxacin 400mg/200ml D5W 400 MG/200 ML BAG IVPB ONE (15:19)
[2018-06-28 15:31] LABS: ALB/GLOB RATIO 1.4 (1.0-2.1); ALBUMIN 4.7 g/dL (3.5-5.0); ALT/SGPT 28 U/L (21-72); AST/SGOT 28 U/L (17-59); BLOOD UREA NITROGEN 15 mg/dl (9-20); CALCIUM 9.8 mg/dL (8.4-10.2); GFR NON-AFRICAN AMERICAN > 60; LIPASE 129 U/L (23-300)
--- NOTE | 2018-06-28 16:36 | CP.PCM.HP ---
History of Present Illness - History of Present Illness History of Present Illness: 52 y.o M with pmh of constipation, DM2 with multiple complications, gastroparesis, HTN, and polyneruopathy presented to the ED for further evaluation of intractable nausea and vomitting. As per the patient, he had >15 episodes of nonblood emesis, which was accompanied by nausea, but no abdominal pain or diarrhea. Pt could not recall what type of food/drink he consumed that might have triggered his symptoms. He was seen here in the ED for similar complaints, treated with IV fluids, pepcid, reglan, and zofran. Of note, urine tox was done at that time, and patient was found to be positive for cannabinoids. Also, the patient has a foot ulcer, which developed after partially stepping on a nail about 1 month ago. Patient complained of this in ED yesterday and was discharged home on cipro, which he was not able to diamond picker from the pharmacy. Patient was seen in podiatry clinic for diabetic foot ulcer 06/25/2018 and prescribed bactrim. Patient states he has not taken it because of the n &v. PMD: Dr. Larson PMHx: constipation, DM2 with multiple complications, gastroparesis, HTN, and polyneruopathy Allergies: Pencillin (swelling), strawberries Psurghx: none FamilyHx: HTN, seizures SocialHx: denies ETOH/Tobacco/drug abuse Next of Kin: Fannie Cevallos [phone] Home Meds: Lantus 26 un SC nightly, Humalog 4 Un before meals, ASA 81mg QD, Atorvastatin 10 MG QD, Metformin 1000 MG 1 tab BID, Omeprazole 20 MG QD, Amlodipine Besy-Benazepril HCl 10-40 MG QD, Gabapentin 600 MG QD, Zofran 4mg tab, Reglan 10mg ED Course: VS: P-97 Temp: 97.8F BP-148/76 spo2- 97% on room air Interventions WBC- 11.6 Chem: glucose-175 troponin neg -IV fluid bolus given -Cipro 400mg IV given reglan 10mg IV once -Blood & urine cultures ordered Present on Admission - Present on Admission Any Indicators Present on Admission: No Past Patient History - Infectious Disease Hx of Infectious Diseases: None - Past Medical History & Family History Past Medical History?: Yes - Past Social History Smoking Status: Never Smoked - CARDIAC Hx Atrial Fibrillation: No Hx Cardia Arrhythmia: No Hx Congestive Heart Failure: No Hx Hypercholesterolemia: Yes Hx Hypertension: Yes Hx Mitral Valve Prolapse: No Hx Pacemaker: No Hx Peripheral Edema: No - PULMONARY Hx Asthma: Yes Hx Bronchitis: No Hx Chronic Obstructive Pulmonary Disease (COPD): No Hx Emphysema: No Hx Pneumonia: No Hx Pulmonary Embolism: No Hx Sleep Apnea: No - NEUROLOGICAL Hx Alzheimer's Disease: No Hx Dementia: No Hx Migraine: No Hx Multiple Sclerosis: No Hx Parkinson's Disease: No Hx Seizures: No Hx Transient Ischemic Attacks (TIA): No - HEENT Hx HEENT Problems: No - RENAL Hx Chronic Kidney Disease: No Hx Kidney Stones: No - ENDOCRINE/METABOLIC Hx Hyperthyroidism: No Hx Hypothyroidism: No - HEMATOLOGICAL/ONCOLOGICAL Hx Anemia: No Hx Human Immunodeficiency Virus (HIV): No Hx Sickle Cell Disease: No - INTEGUMENTARY Hx Dermatological Problems: No - MUSCULOSKELETAL/RHEUMATOLOGICAL Hx Arthritis: Yes Hx Fractures: No Hx Osteoporosis: No Hx Rheumatoid Arthritis: No - GASTROINTESTINAL Hx Crohn's Disease: No Hx Diverticulitis: No Hx Gall Bladder Disease: No Hx Gastritis: Yes (H Pylori) Hx Pancreatitis: No - GENITOURINARY/GYNECOLOGICAL Hx Sexually Transmitted Disorders: No - PSYCHIATRIC Hx Anxiety: No Hx Bipolar Disorder: No Hx Depression: No Hx Paranoia: No Hx Post Traumatic Stress Disorder: No Hx Schizophrenia: No - SURGICAL HISTORY Hx Appendectomy: No Hx Carotid Endarterectomy: No Hx Cholecystectomy: No Hx Coronary Artery Bypass Graft: No Hx Coronary Stent: No Hx Tonsillectomy: No - ANESTHESIA Hx Anesthesia: Yes Hx Anesthesia Reactions: No Hx Malignant Hyperthermia: No Meds Allergies/Adverse Reactions: Allergies Allergy/AdvReac Type Severity Reaction Status Date / Time Penicillins Allergy SWELLING Verified 06/27/18 09:19 strawberry Allergy SWELLING Verified 06/27/18 09:19 Results - Vital Signs Recent Vital Signs: Last Vital Signs Temp 97.8 F 06/28/18 13:33 Pulse 97 H 06/28/18 13:33 Resp 17 06/28/18 13:33 BP Pulse Ox 97 06/28/18 15:44 - Labs Result Diagrams: 06/28/18 14:45 06/28/18 14:45 Labs: Laboratory Results - last 24 hr 06/28/18 06/28/18 06/28/18 14:45 14:45 14:59 WBC 11.6 H RBC 4.18 L Hgb 12.3 Hct 36.1 MCV 86.3 MCH 29.4 MCHC 34.1 RDW 13.1 Plt Count 330 D MPV 6.7 L Neut % (Auto) 81.3 H Lymph % (Auto) 13.5 L [place] % (Auto) 4.7 Eos % (Auto) 0.0 Baso % (Auto) 0.5 Neut # (Auto) 9.4 H Lymph # (Auto) 1.6 [place] # (Auto) 0.5 Eos # (Auto) 0.0 Baso # (Auto) 0.1 pO2 22 L VBG pH 7.42 VBG pCO2 50 VBG HCO3 28.5 VBG Total CO2 33.9 H VBG O2 Sat (Calc) 36.9 L VBG Base Excess 6.6 H VBG Potassium 4.0 Glucose 170 H Lactate 1.6 FiO2 21.0 Sodium 136 136.0 Potassium 4.0 Chloride 96 L 97.0 L Carbon Dioxide 30 Anion Gap 14 BUN 15 Creatinine 0.8 Est GFR ( Amer) > 60 Est GFR (Non-Af Amer) > 60 Random Glucose 175 H Calcium 9.8 Total Bilirubin 0.7 AST 28 ALT 28 Alkaline Phosphatase 87 Total Protein 8.1 Albumin 4.7 Globulin 3.3 Albumin/Globulin Ratio 1.4 Lipase 129 Venous Blood Potassium 4.0 Assessment & Plan - Assessment and Plan (Free Text) Assessment: 52 y.o M with pmh of constipation, DM2 with multiple complications, gastroparesis, HTN, and polyneruopathy presented to the ED for further evaluation of intractable nausea and vomitting. Intractable N & V (likely an exacebation of gastroparesis in setting of positive cannabinoid) -c/w IV fluids -NPO -c/w reglan 10mg IV q6 -c/w zofran prn -FU AM labs Gastroparesis --c/w IV fluids -NPO -c/w reglan 10mg IV q6 -c/w zofran prn -FU AM labs Leukocytosis (acute) -possibly due to dehydration -FU AM labs Diabetic foot ulcer -stepped on nail 1 month ago -FU podiatry consult -no antibiotics at this time Cannabinoids positive DVT prophylaxis -lovenox 40mg sc
--- NOTE | 2018-06-28 16:40 | RAD ---
Date of service: 06/28/2018 HISTORY: ROUTIEN COMPARISON: Frontal chest radiograph 04/15/2018. TECHNIQUE: 1 view obtained. FINDINGS: LUNGS: No active pulmonary disease. PLEURA: No significant pleural effusion identified, no pneumothorax apparent. CARDIOVASCULAR: No aortic atherosclerotic calcification present. Normal cardiac size. No pulmonary vascular congestion. OSSEOUS STRUCTURES: No significant abnormalities. VISUALIZED UPPER ABDOMEN: Normal. OTHER FINDINGS: None. IMPRESSION: No interval acute cardiopulmonary disease appreciated.
[2018-06-28] MEDS: Sodium Chloride 0.9% 1,000 ML IV SCH ×2 (16:45→17:15)
[2018-06-28] MEDS ORDERED: Dextrose 50% SYRINGE Inj (50 ml) IV PRN (21:57)
[2018-06-28] MEDS ORDERED: Glucagon Recombinant 1 mg Inj IM PRN (21:57)
[2018-06-28] MEDS: Insulin Lispro (humaLOG) 100 Units/ml Inj SC SCH (22:49)
[2018-06-29] VITALS: O2SAT 99
[2018-06-29] MEDS: Sodium Chloride 0.9% 1,000 ML IV SCH ×3 (01:00→08:53)
[2018-06-29 06:33] LABS: BASO % 0.3 % (0.0-2.0); EOS % 0.4 % (0.0-4.0); HEMOGLOBIN 11.4 g/dL (12.0-18.0); LYMPH # 2.4 K/uL (1.0-4.3); LYMPH % 23.7 % (20.0-40.0); MEAN CELL VOLUME 84.5 fl (80.0-94.0); MEAN CORPUSCULAR HEMOGLOBIN 29.8 pg (27.0-31.0); MEAN CORPUSCULAR HGB CONC 35.3 g/dL (33.0-37.0); MEAN PLATELET VOLUME 6.7 fl (7.2-11.7); MONO # 0.7 K/uL (0.0-0.8); MONO % 6.7 % (0.0-10.0); NEUT # 7.1 K/uL (1.8-7.0); NEUT % 68.9 % (50.0-75.0); RBC 3.83 Mil/uL (4.40-5.90); RED CELL DISTRIBUTION WIDTH 13.1 % (11.5-14.5); WHITE BLOOD COUNT 10.3 K/uL (4.8-10.8)
[2018-06-29 06:45] LABS: ALB/GLOB RATIO 1.4 (1.0-2.1); ALT/SGPT 30 U/L (21-72); AST/SGOT 29 U/L (17-59); BLOOD UREA NITROGEN 11 mg/dl (9-20); CALCIUM 9.3 mg/dL (8.4-10.2); GFR NON-AFRICAN AMERICAN > 60
[2018-06-29 06:56] VITALS: BMI 20.2
[2018-06-29] MEDS: Insulin Lispro (humaLOG) 100 Units/ml Inj SC SCH ×3 (08:14→16:47)
--- NOTE | 2018-06-29 08:53 | CP.PCM.PN ---
Subjective - Date & Time of Evaluation Date of Evaluation: 06/29/18 Time of Evaluation: 15:00 - Subjective Subjective: Patient seen and examined at bedside. Reports feeling better, last episode of vomitus was more than 12 hours ago. Tolerated a liquid diet this morning. Denies chest pain, shortness of breath, nausea, vomiting, abdominal pain or diarrhea. No overnight events. Objective - Vital Signs/Intake and Output Vital Signs (last 24 hours): Temp Pulse Resp BP Pulse Ox 97.8 F 80 20 164/82 H 99 06/29/18 08:25 06/29/18 08:25 06/29/18 08:25 06/29/18 08:25 06/29/18 08:25 - Medications Medications: Current Medications Amlodipine Besylate (Norvasc) 10 mg PO DAILY [facility] Aspirin (Ecotrin) 81 mg PO DAILY [facility] Atorvastatin Calcium (Lipitor) 10 mg PO HS [facility] Last Admin: 06/28/18 22:57 Dose: 10 mg Dextrose (Dextrose 50% Inj) 0 ml IV STAT PRN; Protocol PRN Reason: Hypoglycemia Protocol Dextrose (Glutose 15) 0 gm PO ONCE PRN; Protocol PRN Reason: Hypoglycemia Protocol Duloxetine HCl (Cymbalta) 60 mg PO DAILY [facility] Enoxaparin Sodium (Lovenox) 40 mg SC DAILY [facility]; Protocol Gabapentin (Neurontin) 800 mg PO HS [facility] Last Admin: 06/28/18 22:56 Dose: 800 mg Glucagon (Glucagen Diagnostic Kit) 0 mg IM STAT PRN; Protocol PRN Reason: Hypoglycemia Protocol Sodium Chloride (Sodium Chloride 0.9%) 1,000 mls @ 125 mls/hr IV .Q8H [facility] Last Admin: 06/29/18 05:26 Dose: 125 mls/hr Insulin Human Lispro (Humalog) 0 units SC ACHS [facility]; Protocol Last Admin: 06/29/18 08:14 Dose: Not Given Lisinopril (Zestril) 40 mg PO DAILY [facility] Metoclopramide HCl (Reglan) 10 mg IVP Q6 [facility] Last Admin: 06/29/18 03:11 Dose: 10 mg Ondansetron HCl (Zofran Inj) 4 mg IVP Q4 PRN PRN Reason: Nausea/Vomiting Pantoprazole Sodium (Protonix Inj) 40 mg IVP DAILY [facility] - Labs Labs: 06/29/18 06:10 06/29/18 06:10 - Constitutional Appears: Well, Non-toxic, No Acute Distress - ENT Exam ENT Exam: Mucous Membranes Moist - Respiratory Exam Respiratory Exam: Clear to Ausculation Bilateral, NORMAL BREATHING PATTERN. abs ent: Accessory Muscle Use, Chest Wall Tenderness, Decreased Breath Sounds, Prolonged Expiratory Phase, Rales, Rhonchi, Wheezes, Respiratory Distress, Stridor - Cardiovascular Exam Cardiovascular Exam: REGULAR RHYTHM, RRR, +S1, +S2 - GI/Abdominal Exam GI & Abdominal Exam: Soft, Hyperactive Bowel Sounds. absent: Distended, Firm, Guarding, Rigid, Tenderness, Diminished Bowel Sounds, Hernia, Organomegaly, Pulsatile Mass - Extremities Exam Extremities Exam: Normal Capillary Refill, Normal Inspection. absent: Calf Tenderness, Pedal Edema, Tenderness Additional comments: Right big toe with ulcer- non-draining/ non-erythematous/ non-tender to palpation - Neurological Exam Neurological Exam: Alert, Awake, Oriented x3 - Psychiatric Exam Psychiatric exam: Normal Affect, Normal Mood - Skin Skin Exam: Dry, Intact, Normal Color, Warm Assessment and Plan - Assessment and Plan (Free Text) Assessment: 52 yo male with history of constipation, DM2 with multiple complications, gastroparesis, HTN, and polyneruopathy admitted for intractable nausea and vomitting, found to have positive cannabinoid on utox. Plan: Intractable N & V (likely an exacebation of gastroparesis in setting of positive cannabinoid) -c/w IV fluids -Advance diet as tolerated -c/w reglan 10mg IV q6 -c/w zofran prn - BMP: WNL Gastroparesis --c/w IV fluids -advance diet as tolerated -c/w reglan 10mg IV q6 -c/w zofran prn -BMP: WNL Leukocytosis (acute) - Resolved Diabetic foot ulcer -stepped on nail 1 month ago, -Podiatry consult appreciated -no antibiotics at this time Cannabinoids positive on UTOX DVT prophylaxis -lovenox 40mg sc
[2018-06-29] MEDS ORDERED: AMLODIPINE BESYLATE PO SCH (09:00)
[2018-06-29] MEDS ORDERED: BENAZEPRIL PO SCH (09:00)
[2018-06-29] MEDS ORDERED: Enoxaparin 40 mg Syringe SC SCH (09:00)
[2018-06-29 12:55] LABS: SQUAMOUS EPITHIAL < 1 /hpf (0-5); URINE BACTERIA RARE (<OCC); URINE BILIRUBIN NEGATIVE (NEGATIVE); URINE BLOOD NEGATIVE (NEGATIVE); URINE CLARITY CLEAR (Clear); URINE COLOR YELLOW (YELLOW); URINE GLUCOSE (UA) 50 mg/dL (NEGATIVE); URINE LEUKOCYTE ESTERASE NEG Leu/uL (Negative); URINE PROTEIN NEGATIVE (NEGATIVE)
[2018-06-29 15:18] VITALS: BP 159/87; PULSE 88; RESP 17; TEMP 97.7
--- NOTE | 2018-06-29 16:10 | CP.PCM.DIS ---
Provider - Provider Date of Admission: 06/28/18 15:40 Attending physician: Audrey Larson MD Primary care physician: Dr. Larson Consults: 06/28/18 18:39 Podiatry Consult Routine Comment: Consulting Provider: Torito Celis Consulting Physician: Torito Celis Reason for Consult: right foot ulcer Time Spent in preparation of Discharge (in minutes): 30 Diagnosis - Discharge Diagnosis (1) Gastroparesis Status: Acute (2) Cannabis abuse Status: Acute (3) Diabetes mellitus Status: Chronic Priority: Medium (4) HTN (hypertension) Status: Chronic Priority: Medium Hospital Course - Lab Results Lab Results: Micro Results 06/28/18 13:20 Blood-Venous Blood Culture - Preliminary NO GROWTH AFTER 24 HOURS 06/28/18 14:45 Blood-Venous Blood Culture - Preliminary NO GROWTH AFTER 24 HOURS Most Recent Lab Values WBC 10.3 K/uL (4.8-10.8) 06/29/18 06:10 RBC 3.83 Mil/uL (4.40-5.90) L 06/29/18 06:10 Hgb 11.4 g/dL (12.0-18.0) L 06/29/18 06:10 Hct 32.3 % (35.0-51.0) L 06/29/18 06:10 MCV 84.5 fl (80.0-94.0) 06/29/18 06:10 MCH 29.8 pg (27.0-31.0) 06/29/18 06:10 MCHC 35.3 g/dL (33.0-37.0) 06/29/18 06:10 RDW 13.1 % (11.5-14.5) 06/29/18 06:10 Plt Count 322 K/uL (130-400) 06/29/18 06:10 MPV 6.7 fl (7.2-11.7) L 06/29/18 06:10 Neut % (Auto) 68.9 % (50.0-75.0) 06/29/18 06:10 Lymph % (Auto) 23.7 % (20.0-40.0) 06/29/18 06:10 Menard % (Auto) 6.7 % (0.0-10.0) 06/29/18 06:10 Eos % (Auto) 0.4 % (0.0-4.0) 06/29/18 06:10 Baso % (Auto) 0.3 % (0.0-2.0) 06/29/18 06:10 Neut # (Auto) 7.1 K/uL (1.8-7.0) H 06/29/18 06:10 Lymph # (Auto) 2.4 K/uL (1.0-4.3) 06/29/18 06:10 Menard # (Auto) 0.7 K/uL (0.0-0.8) 06/29/18 06:10 Eos # (Auto) 0.0 K/uL (0.0-0.7) 06/29/18 06:10 Baso # (Auto) 0.0 K/uL (0.0-0.2) 06/29/18 06:10 pO2 22 mm/Hg (30-55) L 06/28/18 14:59 VBG pH 7.42 (7.32-7.43) 06/28/18 14:59 VBG pCO2 50 mmHg (40-60) 06/28/18 14:59 VBG HCO3 28.5 mmol/L 06/28/18 14:59 VBG Total CO2 33.9 mmol/L (22-28) H 06/28/18 14:59 VBG O2 Sat (Calc) 36.9 % (40-65) L 06/28/18 14:59 VBG Base Excess 6.6 mmol/L (0.0-2.0) H 06/28/18 14:59 VBG Potassium 4.0 mmol/L (3.6-5.2) 06/28/18 14:59 Sodium 136.0 mmol/L (132-148) 06/28/18 14:59 Chloride 97.0 mmol/L (98-107) L 06/28/18 14:59 Glucose 170 mg/dL (75-110) H 06/28/18 14:59 Lactate 1.6 mmol/L (0.7-2.1) 06/28/18 14:59 FiO2 21.0 % 06/28/18 14:59 Sodium 136 mmol/l (132-148) 06/29/18 06:10 Potassium 3.7 MMOL/L (3.6-5.0) 06/29/18 06:10 Chloride 99 mmol/L (98-107) 06/29/18 06:10 Carbon Dioxide 26 mmol/L (22-30) 06/29/18 06:10 Anion Gap 15 (10-20) 06/29/18 06:10 BUN 11 mg/dl (9-20) 06/29/18 06:10 Creatinine 0.8 mg/dl (0.8-1.5) 06/29/18 06:10 Est GFR ( Amer) > 60 06/29/18 06:10 Est GFR (Non-Af Amer) > 60 06/29/18 06:10 POC Glucose (mg/dL) 204 mg/dL (65-110) H 06/29/18 11:23 Random Glucose 107 mg/dL (75-110) 06/29/18 06:10 Calcium 9.3 mg/dL (8.4-10.2) 06/29/18 06:10 Total Bilirubin 0.7 mg/dl (0.2-1.3) 06/29/18 06:10 AST 29 U/L (17-59) 06/29/18 06:10 ALT 30 U/L (21-72) 06/29/18 06:10 Alkaline Phosphatase 72 U/L (38-126) 06/29/18 06:10 Troponin I < 0.0120 ng/mL (0.00-0.120) 06/28/18 18:04 Total Protein 6.9 G/DL (6.3-8.2) 06/29/18 06:10 Albumin 4.0 g/dL (3.5-5.0) 06/29/18 06:10 Globulin 2.9 gm/dL (2.2-3.9) 06/29/18 06:10 Albumin/Globulin Ratio 1.4 (1.0-2.1) 06/29/18 06:10 Lipase 129 U/L (23-300) 06/28/18 14:45 Venous Blood Potassium 4.0 mmol/L (3.6-5.2) 06/28/18 14:59 Urine Color Yellow (YELLOW) 06/29/18 12:30 Urine Clarity Clear (Clear) 06/29/18 12:30 Urine pH 7.0 (5.0-8.0) 06/29/18 12:30 Ur Specific [place] 1.011 (1.003-1.030) 06/29/18 12:30 Urine Protein Negative mg/dL (NEGATIVE) 06/29/18 12:30 Urine Glucose (UA) 50 mg/dL (NEGATIVE) 06/29/18 12:30 Urine Ketones Trace mg/dL (NEGATIVE) 06/29/18 12:30 Urine Blood Negative (NEGATIVE) 06/29/18 12:30 Urine Nitrate Negative (NEGATIVE) 06/29/18 12:30 Urine Bilirubin Negative (NEGATIVE) 06/29/18 12:30 Urine Urobilinogen 4.0 mg/dL (0.2-1.0) 06/29/18 12:30 Ur Leukocyte Esterase Neg [place]/uL (Negative) 06/29/18 12:30 Urine RBC (Auto) 1 /hpf (0-3) 06/29/18 12:30 Urine Microscopic WBC 1 /hpf (0-5) 06/29/18 12:30 Ur Squamous Epith Cells < 1 /hpf (0-5) 06/29/18 12:30 Urine Bacteria Rare (<OCC) 06/29/18 12:30 Alcohol, Quantitative < 10 mg/dl (0-10) 06/28/18 18:04 - Hospital Course Hospital Course: 52 o male with history of constipation, DM2 with multiple complications, gastroparesis, HTN, and polyneruopathy presented to the ED for intractable nausea and vomitting after cannabis use. Patient was admitted for gastroparesis worsened by Cannabis use. During his hospital stay, patient was hemodynamically stable. He was maintained on Reglan and Zofran and home medications were started. The next morning patient was able to tolerate liquid diet for breakfast and was advanced to solid foods for lunch, both of which he tolerated without nausea, vomiting or abdominal pain. No acute events during his hospital stay. Discharge Exam - Head Exam Head Exam: ATRAUMATIC, NORMAL INSPECTION, NORMOCEPHALIC - Eye Exam Eye Exam: Normal appearance - ENT Exam ENT Exam: Mucous Membranes Moist - Respiratory Exam Respiratory Exam: absent: Accessory Muscle Use, Chest Wall Tenderness, Decreased Breath Sounds, Prolonged Expiratory Phase, Rales, Wheezes, Respiratory Distress, Stridor Additional comments: Bilateral bases with rhonchi - Cardiovascular Exam Cardiovascular Exam: RRR, +S1, +S2 - GI/Abdominal Exam GI & Abdominal Exam: Normal Bowel Sounds, Unremarkable. absent: Distended, Firm, Guarding, Hernia, Rebound, Rigid, Soft, Tenderness - Extremities Exam Extremities exam: normal capillary refill, normal inspection Additional comments: Right big toe with dry, non-erythematous, non-tender healing ulcer. - Neurological Exam Neurological exam: Alert, Oriented x3 - Psychiatric Exam Psychiatric exam: Normal Affect, Normal Mood - Skin Skin Exam: Dry, Intact, Normal Color, Warm Discharge Plan - Discharge Medications Prescriptions: Metoclopramide [Reglan] 5 mg PO Q4H 3 Days tab - Follow Up Plan Condition: FAIR Disposition: HOME/ ROUTINE Patient education suggested?: Yes Instructions: Gastroparesis (Delayed Gastric Emptying)
== END 2018-06-29 18:09 | disposition home or self-care (01) ==
LOC: H.ER 13:31 → H.ERHOLD 15:40 → INTOOBSV 15:40 → H.MEDSURG1 18:37
PROVIDERS: ADMIT Family Medicine; ATTEND Family Medicine
DX: E11.43 Type 2 diabetes mellitus with diabetic autonomic (poly)neuropathy (principal); K31.84 Gastroparesis; F12.10 Cannabis abuse, uncomplicated; E11.621 Type 2 diabetes mellitus with foot ulcer; I10 Essential (primary) hypertension; S91.339A Puncture wound without foreign body, unspecified foot, initial encounter; W45.0XXA Nail entering through skin, initial encounter; D72.829 Elevated white blood cell count, unspecified; E86.0 Dehydration; E78.00 Pure hypercholesterolemia, unspecified; J45.909 Unspecified asthma, uncomplicated; L97.509 Non-pressure chronic ulcer of other part of unspecified foot with unspecified severity; Z79.4 Long term (current) use of insulin; Z79.82 Long term (current) use of aspirin; Z79.899 Other long term (current) drug therapy; K29.70 Gastritis, unspecified, without bleeding; K59.00 Constipation, unspecified; M19.90 Unspecified osteoarthritis, unspecified site
CPT/HCPCS: 36415; 71045; 80053; 80320; 81003; 82803; 82948; 83690; 84145; 84484; 85025; 87040; 87086; 96374; 99285; C9113; G0378; J0744; J1650; J2765; J7030

== ENCOUNTER 2018-08-10 10:27 | Emergency (ER) | payer OTHER ==
[2018-08-10 10:44] VITALS: BMI 23.5
[2018-08-10 10:45] VITALS: TEMP 98.5; O2SAT 99
--- NOTE | 2018-08-10 12:56 | ED PDOC ---
Upper Extremity Pain/Injury Time Seen by Provider: 08/10/18 12:24 Chief Complaint (Nursing): Abnormal Skin Integrity Chief Complaint (Provider): Abnormal Skin Integrity History Per: Patient History/Exam Limitations: no limitations Onset/Duration Of Symptoms: Days (x3) Current Symptoms Are (Timing): Still Present Additional Complaint(s): 52 year old male with medical history of diabetes, asthma, and hypertension, presents to the emergency department for an evaluation of a cut to his left, 3rd finger sustained on 08/08/18 while cutting chicken with a knife. Patient did not seek medical attention immediately, however, he did receive a tetanus shot a few months ago following an incident where he stepped on a nail. He reports pain is localized to affected finger with no radiation. Otherwise, patient denies any fever, chills, bodyaches, weakness or numbness to finger. Past Medical History Reviewed: Historical Data, Nursing Documentation, Vital Signs Vital Signs: Last Vital Signs Temp 98.5 F 08/10/18 10:44 Pulse 96 H 08/10/18 10:44 Resp 16 08/10/18 10:44 BP 181/91 H 08/10/18 10:44 Pulse Ox 99 08/10/18 10:44 Primary Care Provider: Audrey Larson - Medical History PMH: Arthritis, Asthma, Diabetes, Gastritis (H Pylori), HTN, Hypercholesterolemia Denies: Alzheimer's Disease, Anemia, Anxiety, Atrial Fibrillation, Bipolar Disorder, Bronchitis, CAD, Cardia Arrhythmia, CHF, COPD, Crohn's Disease, Dementia, Depression, Diverticulitis, Emphysema, Fractures, Gall Bladder Disease, HIV, Hyperthyroidism, Hypothyroidism, Kidney Stones, Migraine, Mitral Valve Prolapse, Multiple Sclerosis, Osteoporosis, Pancreatitis, Paranoia, Parkinson's Disease, Peripheral Edema, Pneumonia, Post Traumatic Stress Disorder, Pulmonary Embolism, Chronic Kidney Disease, Rheumatoid Arthritis, Schizophrenia, Seizures, Sickle Cell Disease, Sexually Transmitted Disease, Sleep Apnea, TIA - Surgical History Surgical History: Endoscopy Denies: Appendectomy, CABG, Carotid Endarterectomy, Cholecystectomy, Coronary Stent, Pacemaker, Tonsillectomy - Family History Family History: States: Unknown Family Hx, Diabetes, Hypertension - Immunization History Hx Tetanus Toxoid Vaccination: No Hx Influenza Vaccination: No Hx Pneumococcal Vaccination: No - Home Medications Home Medications: Ambulatory Orders Medication Instructions Recorded Amlodipine Besylate/Benazepril 1 cap PO DAILY 01/19/18 [Lotrel 10-40 mg Capsule] Aspirin [Ecotrin] 81 mg PO DAILY 01/19/18 Atorvastatin [Lipitor] 10 mg PO HS 01/19/18 Insulin Glargine,Hum.rec.anlog 24 unit SC HS 01/19/18 [Lantus Solostar] Insulin Lispro [humALOG] 4 unit SC AC 01/19/18 MetFORMIN [glucoPHAGE] 1,000 mg PO BID 01/19/18 Omeprazole 20 mg PO DAILY 01/19/18 Ondansetron [Zofran Tab] 4 mg PO Q8 PRN 05/31/18 Metoclopramide HCl [Reglan] 10 mg PO TID PRN 7 Days tablet 06/27/18 Gabapentin [Neurontin] 800 mg PO HS 06/28/18 Gabapentin [Neurontin] 800 mg PO HS cap 06/29/18 Metoclopramide [Reglan] 5 mg PO Q4H 3 Days tab 06/29/18 - Allergies Allergies/Adverse Reactions: Allergies Allergy/AdvReac Type Severity Reaction Status Date / Time Penicillins Allergy SWELLING Verified 08/10/18 12:24 strawberry Allergy SWELLING Verified 08/10/18 12:24 Review of Systems ROS Statement: Except As Marked, All Systems Reviewed And Found Negative Constitutional: Negative for: Fever, Chills, Other (bodyaches) Musculoskeletal: Positive for: Hand Pain (left, 3rd digit laceration) Neurological: Negative for: Weakness, Numbness Physical Exam - Reviewed Nursing Documentation Reviewed: Yes Vital Signs Reviewed: Yes - Physical Exam Appears: Positive for: Well, Non-toxic, No Acute Distress Pulses-Radial (L): 2+ Pulses-Radial (R): 2+ Extremity: Positive for: Normal ROM (left, 3rd digit), Other (left, 3rd digit with < 1cm tensile, curavature laceration over PIP joint). Negative for: Tenderness (or tendon exposure to left, 3rd digit), Deformity, Swelling (or erythema to left, 3rd digit) Neurological/Psych: Positive for: Awake, Alert, Normal Tone, Symmetric/Intact Strength (5/5 extension and flexion of left, 3rd digit), Oriented. Negative for: Motor/Sensory Deficits - ECG O2 Sat by Pulse Oximetry: 99 (RA) Pulse Ox Interpretation: Normal Medical Decision Making Medical Decision Making: Time: 1240 Initial Plan: laceration repair (see procedure note) Time: 1339 --Upon provider reevaluation, patient is medically stable, reports improvement in symptoms, and requires no further treatment in the ED at this time. Patient will be discharged home and advised to monitor wound for persistent pain, swelling, or signs of infection. Counseling was provided and all questions were answered regarding diagnosis. There is agreement to discharge plan. Return precautions discussed. Clinical Impression: finger injury; laceration -- Scribe Attestation: Documented by Nhung Wei, acting as a scribe for Ethel Gooden APN. Provider Scribe Attestation: All medical record entries made by the Scribe were at my direction and personally dictated by me. I have reviewed the chart and agree that the record accurately reflects my personal performance of the history, physical exam, medical decision making, and the department course for this patient. I have also personally directed, reviewed, and agree with the discharge instructions and disposition. Procedures - Time-Out Type of Procedure: laceration repair Site of Procedure: left, 3rd digit Correct Patient: Yes Correct Procedure: Yes RN Name: Ethel EVERETTE - Laceration/Wound Repair Left Finger Wound Length (cm): 1 (less than < 1cm) Wound's Depth, Shape: superficial Wound Explored: clean Betadine Prep?: Yes Wound Debrided: minimal Wound Repaired With: Steri-strips Wound Complexity: Simple Progress: Time: 1255 Left, 3rd digit laceration repair --Obtained verbal consent from patient. --Area cleaned with sterile water. --Soaked affected finger for, approximately, 20 minutes in betadine prep. --Wound closed with (4) steri-strips applied to left, 3rd digit. --No signs of infection, edema, discharge, or erythema post lac repair. --Patient tolerated procedure well without complications. Disposition - Clinical Impression Clinical Impression: Finger injury, Laceration - Patient ED Disposition Is Patient to be Admitted: No - Disposition Disposition: Routine/Home Disposition Time: 12:45 Condition: GOOD Instructions: Common Finger Injuries Forms: [facility] (Malay) Print Language: DIVEHI - POA Present On Arrival: None
[2018-08-10 13:54] VITALS: BP 170/89; PULSE 90; RESP 18
== END 2018-08-10 13:54 | disposition home or self-care (01) ==
LOC: H.ER 10:27
DX: S61.213A Laceration without foreign body of left middle finger without damage to nail, initial encounter (principal); W26.0XXA Contact with knife, initial encounter; Y92.89 Other specified places as the place of occurrence of the external cause; E11.9 Type 2 diabetes mellitus without complications; E78.00 Pure hypercholesterolemia, unspecified; I10 Essential (primary) hypertension; Z79.4 Long term (current) use of insulin; Z88.0 Allergy status to penicillin